=== PATIENT | female | born 1935 | race Caucasian/White ===

== ENCOUNTER → 2016-08-24 | Outpatient (CLI) | payer BC ==
[~2016-08-24] MED LIST: ATEN50TA8 PO; CALC600T37 PO; FESO8TAB PO; GLUCTAB7 PO; IBUP1CAP9 PO; MULT-506 PO; PANT1TAB48 PO; PITA4TAB PO; PREG100C PO; RANI300T2 PO; SPIR25TA89 PO
[2016-08-24 14:01] LABS: ALT/SGPT 20 U/L (12-78); AST/SGOT 20 U/L (15-37); BLOOD UREA NITROGEN 15 mg/dl (7-18); BUN/CREATININE RATIO 17.8 (10-20); CARBON DIOXIDE 27 mmol/L (21-32); CHLORIDE 109 mmol/L (98-107); CHOLESTEROL 175 mg/dl (0-200); CREATININE 0.83 mg/dl (0.60-1.20); GLUCOSE 97 mg/dl (70-99); SODIUM 143 mmol/L (136-145); TRIGLYCERIDES 203 mg/dl (0-150); VERY LOW DENSITY LIPOPROT CALC 41 mg/dl
[2016-08-24 14:12] LABS: ALB/GLOB RATIO 1.1 (0.9-2); ALKALINE PHOSPHATASE 138 U/L (45-117); CHOLESTEROL/HDL RATIO 3.7; HDL CHOLESTEROL 47 mg/dl; LDL CHOLESTEROL CALCULATED 87 mg/dl
[2016-08-24 14:38] LABS: HEMATOCRIT 39.5 % (37-47); MEAN CELL VOLUME 92.7 fL (80-100); MEAN CORPUSCULAR HGB CONC 33.4 g/dl (32-36); MEAN PLATELET VOLUME 13.4 fL (7.4-10.4); PLATELET COUNT 129 K/uL (130-400); RED BLOOD COUNT 4.26 M/uL (4.2-5.4); WHITE BLOOD COUNT 5.32 K/uL (4.8-10.8)
[2016-08-24 14:42] LABS: COMPLETE YES; GIANT PLATELETS 1+; LARGE GRANULAR LYMPH ABSOLUTE 1.67 K/uL; LARGE GRANULAR LYMPHOCYTE % 31.3 %; LARGE PLATELETS 2+; LYMPH ABS # 1.06 K/uL (1.2-3.4); NEUTROPHILS % 45.2 %; PLT ESTIMATE DECREASED
--- NOTE | 2016-08-30 12:30 | CODING QUERY MEDICAL NECESSITY ---
SUPPORTING DIAGNOSIS NEEDED A supporting diagnosis is required for the test/procedure performed on this patient in order for us to be reimbursed by the patient's insurance. Please provide a supporting diagnosis for the following test/procedure listed below next to the test name along with your signature. *If there is no additional diagnosis for this patient that would support the following test/procedure please document that below next to the test/procedure. Test(s)/Procedure(s) that require a supporting diagnosis: * VITAMIN D 25-HYDROXY DIAGNOSIS: * DOS: 08/24/16 Provider Signature: Date: Thank you Sandy Hoffman Health Information Management Once completed, please kindly fax back to [phone] For questions please call [phone]
== END | disposition home or self-care (01) ==
LOC: C.LABBC 09:30
PROVIDERS: ATTEND Internal Medicine Geriatric Medicine
DX: I10 Essential (primary) hypertension (principal); I87.2 Venous insufficiency (chronic) (peripheral); M19.90 Unspecified osteoarthritis, unspecified site; E78.5 Hyperlipidemia, unspecified; K22.2 Esophageal obstruction; I82.409 Acute embolism and thrombosis of unspecified deep veins of unspecified lower extremity; R91.8 Other nonspecific abnormal finding of lung field; E55.9 Vitamin D deficiency, unspecified

== ENCOUNTER → 2016-08-25 | Outpatient (CLI) | payer BC ==
[~2016-08-25] MED LIST changes: +ASPCH81X PO; +BUTACAP36; +CELE100C PO; +DEXL30CA5; +FRS/40 PO; +HYDR-4383 PO; +LOSA1TAB PO; +MIRA100T PO
--- NOTE | 2016-08-25 13:11 | MAMMOGRAPHY REPORT ---
BILATERAL DIGITAL SCREENING MAMMOGRAM WITH CAD: 08/25/2016 CLINICAL HISTORY: Routine screening. Patient has no complaints. TECHNIQUE: Current study was also evaluated with a Computer Aided Detection (CAD) system. Bilatera l CC and XCCL and MLO views were obtained. COMPARISON: Comparison is made to exams dated: 08/23/2015 mammogram, 08/19/2014 mammogram, 08/18/2013 mammogram, 08/15/2012 mammogram, 08/14/2011 mammogram, and 08/11/2010 mammogram - [facility]. BREAST COMPOSITION: The tissue of both breasts is almost entirely fatty. FINDINGS: No suspicious masses, calcifications, or areas of architectural distortion are noted in e ither breast. There has been no significant interval change compared to prior exams. Scattered bilat eral benign-appearing calcifications are not significantly changed. IMPRESSION: ACR BI-RADS CATEGORY 2: BENIGN There is no mammographic evidence of malignancy. A 1 year screening mammogram is recommended. The p atient will receive written notification of the results. Approximately 10% of breast cancers are not detected with mammography. A negative mammographic repor t should not delay biopsy if a clinically suggestive mass is present. Tracey Gallo M.D. /:08/25/2016 12:21:18 Professional Healthcare Representative: Martin LEE(R)(M), [facility] letter sent: Normal 1/2 BI-RADS Code: ACR BI-RADS Category 2: Benign
== END | disposition home or self-care (01) ==
LOC: C.MAMM 08:56
PROVIDERS: ATTEND Internal Medicine Geriatric Medicine
DX: Z12.31 Encounter for screening mammogram for malignant neoplasm of breast (principal)

== ENCOUNTER → 2016-08-30 | Outpatient (CLI) | payer BC ==
--- NOTE | 2016-08-30 11:33 | DIAGNOSTIC IMAGING REPORT ---
ULTRASOUND VENOUS DOPPLER LWR EXT BILA CLINICAL HISTORY: R60.9 MnveaS50.8 Pulmonary [id number] COMPARISON STUDY: 05/08/2016 FINDINGS: Real-time and color flow Doppler imaging were performed. Flow was seen within the femoral, popliteal and calf veins with no intraluminal thrombus demonstrated. The saphenous vein is patent. There are bilateral popliteal cysts. The cyst the right measures 47 x 7 x 27 mm. The cyst in the left measures 73 x 21 x 53 mm. IMPRESSION: No evidence of lower extremity DVT. Electronically signed by: Jesus Salinas M.D. 08/30/2016 11:31 AM Dictated Date/Time: 08/30/2016 11:31 AM
== END | disposition home or self-care (01) ==
LOC: C.ULTR 10:48
PROVIDERS: ATTEND Internal Medicine Geriatric Medicine
DX: R60.9 Edema, unspecified (principal); R91.8 Other nonspecific abnormal finding of lung field

== ENCOUNTER → 2017-02-16 | Outpatient (CLI) | payer BC ==
[~2017-02-16] MED LIST changes: -CELE100C PO
[2017-02-16 13:27] LABS: BASO % 0.2 %; BASO ABS # 0.01 K/uL (0-0.2); COMPLETE YES; EOS % 0.6 %; HEMATOCRIT 39.3 % (37-47); IG% 0.3 %; LYMPH % 46.3 %; MEAN CELL VOLUME 95.4 fL (80-100); MEAN CORPUSCULAR HEMOGLOBIN 30.8 pg (25-34); MEAN CORPUSCULAR HGB CONC 32.3 g/dl (32-36); MONO % 9.3 %; NEUT % 43.3 %; PLATELET COUNT 132 K/uL (130-400); RED BLOOD COUNT 4.12 M/uL (4.2-5.4); WHITE BLOOD COUNT 6.26 K/uL (4.8-10.8)
[2017-02-16 13:57] LABS: ALT/SGPT 19 U/L (12-78); AST/SGOT 19 U/L (15-37); BLOOD UREA NITROGEN 16 mg/dl (7-18); BUN/CREATININE RATIO 19.4 (10-20); CALCIUM 10.1 mg/dl (8.5-10.1); CARBON DIOXIDE 27 mmol/L (21-32); CHLORIDE 108 mmol/L (98-107); CREATININE 0.84 mg/dl (0.60-1.20); GLUCOSE 93 mg/dl (70-99); POTASSIUM 4.5 mmol/L (3.5-5.1); SODIUM 141 mmol/L (136-145)
[2017-02-16 14:00] LABS: ALKALINE PHOSPHATASE 116 U/L (45-117)
== END | disposition home or self-care (01) ==
LOC: C.LABBC 11:22
PROVIDERS: ATTEND Internal Medicine Geriatric Medicine
DX: I10 Essential (primary) hypertension (principal); E78.5 Hyperlipidemia, unspecified; D69.6 Thrombocytopenia, unspecified

== ENCOUNTER → 2017-02-22 | Outpatient (CLI) | payer BC ==
--- NOTE | 2017-02-22 09:47 | DIAGNOSTIC IMAGING REPORT ---
ULTRASOUND VENOUS DOPPLER LWR EXT BILKarolyn CLINICAL HISTORY: R60.9 Edema COMPARISON STUDY: 08/30/2016 FINDINGS: Real-time and color flow Doppler imaging were performed. Flow was seen within the femoral, popliteal and calf veins with no intraluminal thrombus demonstrated. The saphenous vein is patent. There is a left popliteal cyst measuring 7.5 x 4.7 x 2.3 cm. IMPRESSION: No evidence of lower extremity DVT. Electronically signed by: Jesus Salinas M.D. 02/22/2017 9:46 AM Dictated Date/Time: 02/22/2017 9:43 AM
== END | disposition home or self-care (01) ==
LOC: C.ULTRBC 08:49
PROVIDERS: ATTEND Internal Medicine Geriatric Medicine
DX: R60.9 Edema, unspecified (principal)

== ENCOUNTER → 2017-02-27 | Outpatient (CLI) | payer BC ==
[~2017-02-27] MED LIST changes: -ASPCH81X PO; -BUTACAP36; -DEXL30CA5; -FRS/40 PO; -HYDR-4383 PO; -LOSA1TAB PO; -MIRA100T PO
--- NOTE | 2017-02-27 10:03 | DIAGNOSTIC IMAGING REPORT ---
(CHEST) THORAX WITHOUT CT DOSE: 561.91 mGy.cm CLINICAL HISTORY: 81 years-old Female with R91.8 Pulmonary [id number]. Follow-up study to assess pulmonary nodules. TECHNIQUE: Multiaxial CT images of the chest were performed without contrast. A dose lowering technique was utilized adhering to the principles of ALARA. COMPARISON: Chest CT 02/28/2016 and 09/22/2015 FINDINGS: The thyroid appears homogeneous without focal nodule identified. No pathologic adenopathy about the chest identified. The heart is mildly enlarged with coronary arterial and aortic annular calcifications. There is fusiform dilation involving the a sending thoracic aorta which begins distal to the sinotubular junction measuring approximately 4.5 x 4.5 cm in AP and transverse dimension. Evaluation is mildly limited secondary to cardiac and respiratory motion. This appears unchanged from comparison. There is no pneumothorax, pleural effusion or focal airspace consolidation. There is mild dependent bibasilar atelectasis, left greater than right. Multiple solid noncalcified pulmonary nodules are again seen within the lungs bilaterally. The largest nodules are seen measuring up to 6 mm, notably within the anterior segment left upper lobe seen on image 66 of series 4. 5 mm noncalcified pulmonary nodule seen within the superior segment of the right lower lobe on image 102 of series 4. No significant change dating back to 09/22/2015. The central airways are patent. Prior cholecystectomy. There is moderate diffuse pancreatic atrophy. No acute abnormality of the upper abdomen. The bones are mildly demineralized. Severe intervertebral disc space narrowing noted at T9-T10. There is convex right curvature of the lower thoracic spine. IMPRESSION: 1. No acute intrathoracic abnormality identified. 2. Redemonstration of multiple noncalcified solid pulmonary nodules in a multilobar distribution bilaterally. These appear stable dating back to 09/22/2015 and are of low clinical suspicion. Fleischner guidelines are provided below. 3. Stable appearing fusiform dilation of the ascending thoracic aorta redemonstrated beginning distal to the sinotubular junction, 4.5 x 4.5 cm. 4. Mild cardiomegaly. Please refer to below summary of Fleischner criteria recommendations for follow-up of incidental CT nodules (Mane Azevedo, Guidelines for management of small pulmonary nodules detected on CT scans: A statement from the Fleischner Society, Radiology 237: [phone].) SOLID NODULES Multiple nodules size: <6 mm * Low risk patients: no routine follow-up * high risk patients: optional CT at 12 months Multiple nodules size: 6-8 mm * Low risk patients: follow-up at 3-6 months, then consider further follow-up at 18-24 months * high risk patients: follow-up at 3-6 months, then at 18-24 months if no change Note: newly detected indeterminate nodule in persons 35 years of age or older. * Low risk patients: minimal or absent history of smoking and/or other known risk factors * high risk patients: history of smoking or of other known risk factors (e.g. first degree relative with lung cancer, or exposure to asbestos, radon, uranium) * if a nodule up to 8 mm is partly solid or is ground glass further follow-up is required after 24 months to exclude possible slow growing adenocarcinoma (BALWINDER) The above report was generated using voice recognition software. It may contain grammatical, syntax or spelling errors. Electronically signed by: Bharath Arrieta M.D. 02/27/2017 10:01 AM Dictated Date/Time: 02/27/2017 9:49 AM
== END | disposition home or self-care (01) ==
LOC: C.CTS 09:37
PROVIDERS: ATTEND Internal Medicine Geriatric Medicine
DX: R91.8 Other nonspecific abnormal finding of lung field (principal); I77.810 Thoracic aortic ectasia; I51.7 Cardiomegaly

== ENCOUNTER → 2017-03-12 | Outpatient (CLI) | payer BC ==
[~2017-03-12] MED LIST changes: +ASPCH81X PO; +BUTACAP36; +DEXL30CA5; +FRS/40 PO; +HYDR-4383 PO; +LOSA1TAB PO; +MIRA100T PO
--- NOTE | 2017-03-12 10:16 | DIAGNOSTIC IMAGING REPORT ---
L-SPINE MIN 4 VIEWS ROUTINE CLINICAL HISTORY: Low back pain COMPARISON STUDY: No previous studies for comparison. FINDINGS: There is a lumbar scoliosis. There are postsurgical changes present the L5-S1 level. There are no acute fractures. There are multilevel degenerative changes. A minor superior endplate L3 compression deformities felt to be old. The bones are osteopenic. IMPRESSION: Postsurgical changes of an L5-S1 discectomy and spinal fusion. Scoliosis. No acute fractures. Electronically signed by: Jesus Salinas M.D. 03/12/2017 10:15 AM Dictated Date/Time: 03/12/2017 10:14 AM
== END | disposition home or self-care (01) ==
LOC: C.RADBC 09:19
PROVIDERS: ATTEND Physician Assistant Medical
DX: M54.5 Low back pain (principal); Z98.1 Arthrodesis status; M41.9 Scoliosis, unspecified

== ENCOUNTER → 2017-08-21 | Outpatient (CLI) | payer BC ==
[~2017-08-21] MED LIST changes: +CALC500C70 PO; +CHOL1000 PO; -DEXL30CA5; +DEXL30CA5 PO; -FESO8TAB PO; -PANT1TAB48 PO; +PITA1TAB19 PO; -PITA4TAB PO; -RANI300T2 PO
[2017-08-21 17:00] LABS: BASO % 0.3 %; BASO ABS # 0.02 K/uL (0-0.2); EOS % 0.9 %; EOS ABS # 0.06 K/uL (0-0.5); HEMATOCRIT 41.9 % (37-47); HEMOGLOBIN 13.9 g/dL (12.0-16.0); IG# 0.02 K/uL (0.00-0.02); LYMPH % 41.4 %; LYMPH ABS # 2.82 K/uL (1.2-3.4); MEAN CELL VOLUME 96.5 fL (80-100); MEAN CORPUSCULAR HGB CONC 33.2 g/dl (32-36); MEAN PLATELET VOLUME 13.2 fL (7.4-10.4); MONO % 7.9 %; MONO ABS # 0.54 K/uL (0.11-0.59); NEUT % 49.2 %; NEUT ABS # 3.35 K/uL (1.4-6.5); PLATELET COUNT 153 K/uL (130-400); RED CELL DISTRIBUTION WIDTH CV 12.7 % (11.5-14.5); RED CELL DISTRIBUTION WIDTH SD 44.4 fL (36.4-46.3); WHITE BLOOD COUNT 6.81 K/uL (4.8-10.8)
[2017-08-21 17:07] LABS: BLOOD UREA NITROGEN 14 mg/dl (7-18); CALCIUM 10.2 mg/dl (8.5-10.1); CARBON DIOXIDE 29 mmol/L (21-32); CHOLESTEROL 171 mg/dl (0-200); CREATININE 1.03 mg/dl (0.60-1.20); GLUCOSE 101 mg/dl (70-99); POTASSIUM 3.7 mmol/L (3.5-5.1); SODIUM 141 mmol/L (136-145)
[2017-08-21 17:18] LABS: LDL CHOLESTEROL CALCULATED 79 mg/dl
== END | disposition home or self-care (01) ==
LOC: C.LABBC 13:46
PROVIDERS: ATTEND Internal Medicine Geriatric Medicine
DX: I10 Essential (primary) hypertension (principal); E78.5 Hyperlipidemia, unspecified; D69.6 Thrombocytopenia, unspecified

== ENCOUNTER → 2017-08-28 | Outpatient (CLI) | payer BC ==
--- NOTE | 2017-08-29 07:55 | MAMMOGRAPHY REPORT ---
BILATERAL DIGITAL SCREENING MAMMOGRAM TOMOSYNTHESIS WITH CAD: 08/28/2017 CLINICAL HISTORY: Routine screening. Patient has no complaints. TECHNIQUE: Breast tomosynthesis in addition to standard 2D mammography was performed. Current study was also evaluated with a Computer Aided Detection (CAD) system. COMPARISON: Comparison is made to exams dated: 08/25/2016 mammogram, 08/23/2015 mammogram, 08/19/2014 m ammogram, 08/18/2013 mammogram, 08/15/2012 mammogram, and 08/14/2011 mammogram - [facility]. BREAST COMPOSITION: The tissue of both breasts is almost entirely fatty. FINDINGS: Status post bilateral reduction mammoplasty. There are scattered benign calcifications thr oughout the left greater than right breast. No suspicious mass, architectural distortion or cluster of microcalcifications is seen. IMPRESSION: ACR BI-RADS CATEGORY 1: NEGATIVE There is no mammographic evidence of malignancy. A 1 year screening mammogram is recommended. The pa tient will receive written notification of the results. Approximately 10% of breast cancers are not detected with mammography. A negative mammographic report should not delay biopsy if a clinically suggestive mass is present. Talisha Bell M.D. ay/:08/28/2017 16:30:37 Store Associate: Lakisha Pina, [facility] letter sent: Normal 1/2 BI-RADS Code: ACR BI-RADS Category 1: Negative
== END | disposition home or self-care (01) ==
LOC: C.MAMM 09:34
PROVIDERS: ATTEND Internal Medicine Geriatric Medicine
DX: Z12.31 Encounter for screening mammogram for malignant neoplasm of breast (principal)

== ENCOUNTER 2020-05-03 08:54 | Observation (INO) ==
[2020-05-03] MEDS ORDERED: SODIUM CHLORIDE 0.9% 500 ML IV SCH (09:15)
--- NOTE | 2020-05-03 09:30 | Electrocardiogram Report ---
Test Reason : Blood Pressure : / mmHG Vent. Rate : 092 BPM Atrial Rate : 416 BPM P-R Int : 000 ms QRS Dur : 084 ms QT Int : 394 ms P-R-T Axes : 000 -04 -63 degrees QTc Int : 487 ms Atrial fibrillation Moderate voltage criteria for LVH, may be normal variant Nonspecific ST and T wave abnormality Prolonged QT Abnormal ECG When compared with ECG of 02-MAY-2020 08:35, Nonspecific T wave abnormality, worse in Lateral leads Confirmed by Rajendra Gibbs ([id number]) on 05/03/2020 9:29:25 AM Referred By: Confirmed By:Rajendra Gibbs
--- NOTE | 2020-05-03 09:43 | XRay Report ---
XR chest 1V portable HISTORY: 84 years-old Female weakness acute weakness COMPARISON: Chest radiograph 01/13/2020 TECHNIQUE: Portable AP view of the chest FINDINGS: Cardiac silhouette is enlarged, unchanged. Calcified plaque of the thoracic aorta. There is no pneumo thorax, pleural effusion, airspace consolidation or overt pulmonary edema. Degenerative changes of th e shoulders and spine. Hiatal hernia. Cholecystectomy. IMPRESSION: 1. Cardiomegaly without acute process. 2. Hiatal hernia. ACT 112: Negative or not required by law. The above report was generated using voice recognition software. It may contain grammatical, syntax o r spelling errors. Electronically signed by: Bharath Arrieta M.D. 05/03/2020 9:41 AM
[2020-05-03 09:47] LABS: Basophils # (auto) 0.01 K/uL (0-0.2); Basophils % (auto) 0.1 %; Hematocrit (blood only) 41.4 % (37-47); Hemoglobin 13.8 g/dL (12.0-16.0); Immature Granulocytes # (auto) 0.03 K/uL (0.00-0.02); Immature Granulocytes % (auto) 0.3 %; Lymphocytes # (auto) 1.15 K/uL (1.2-3.4); Mean Corpuscular Hemoglobin 32.6 pg (25-34); Mean Corpuscular Hgb Conc 33.3 g/dL (32-36); Mean Corpuscular Volume 97.9 fL (80-100); Mean Platelet Volume 12.8 fL (7.4-10.4); Monocytes # (auto) 0.91 K/uL (0.11-0.59); Monocytes % (auto) 8.7 %; Neutrophils # (auto) 8.36 K/uL (1.4-6.5); Neutrophils % (auto) 79.9 %; Platelet Count 153 K/uL (130-400); RDW Coefficient of Variation 13.1 % (11.5-14.5); RDW Standard Deviation 46.9 fL (36.4-46.3); Red Blood Count 4.23 M/uL (4.2-5.4); White Blood Count 10.46 K/uL (4.8-10.8)
[2020-05-03 10:08] LABS: Alanine Aminotransferase 29 U/L (12-78); Albumin Level 3.7 gm/dl (3.4-5.0); Aspartate Aminotransferase 35 U/L (15-37); BUN Creatinine Ratio 14.3 (10-20); Blood Urea Nitrogen 15 mg/dl (7-18); Calcium 10.5 mg/dl (8.5-10.1); Carbon Dioxide 24 mmol/L (21-32); Chloride 109 mmol/L (98-107); Creatinine Clr Calc Pharmacy 43.1 ml/min; Est GFR (African American) 58.5; Est GFR (Non-African American) 50.5; Glucose 137 mg/dl (70-99); Potassium 4.1 mmol/L (3.5-5.1); Sodium 143 mmol/L (136-145)
[2020-05-03 10:33] LABS: Albumin Globulin Ratio 0.9 (0.9-2); Alkaline Phosphatase 97 U/L (45-117); Creatine Kinase 75 U/L (26-192); Total Protein 7.7 gm/dl (6.4-8.2); Troponin I < 0.015 ng/ml (0-0.045)
--- NOTE | 2020-05-03 10:59 | CT Scan Report ---
CT head/brain wo con CLINICAL HISTORY: 84 years-old Female with fall, weakness. Acute head injury status post fall TECHNIQUE: Multiple axial CT images of the head were obtained without contrast. A dose lowering tech nique was utilized adhering to the principles of ALARA. CT DOSE: 614.27 mGy.cm COMPARISON: Brain MRI 11/25/2019. FINDINGS: No acute intracranial hemorrhage, midline shift, intracranial mass, hydrocephalus, territorial ischem ia or abnormal extra-axial collection. Age-related involutional changes with ex vacuo ventriculomegal y. Patchy white matter hypodensities suggest chronic microvascular ischemic disease. Cerebral vascula r calcifications. The calvarium is intact. Prior bilateral lens repair. The paranasal sinuses, mastoid air cells, and m iddle ear cavities are clear. IMPRESSION: No acute intracranial abnormality or calvarial fracture. ACT 112: Negative or not required by law. The above report was generated using voice recognition software. It may contain grammatical, syntax o r spelling errors. Electronically signed by: Bharath Arrieta M.D. 05/03/2020 10:58 AM
[2020-05-03] MEDS ORDERED: cefTRIAXone SODIUM 2,000 MG/70 ML BAG IV STA (11:21)
--- NOTE | 2020-05-03 12:02 | History & Physical Report ---
Date of Service May 03, 2020 Assessment & Plan (1) Constipation: Suspect this is the main cause of her nausea and vomiting which lead to her admission. MiraLAX 17g TID (2) Nausea: Suspect secondary to constipation as above +/- pain medication. No definitive urine tract infection on prior UA. Will defer further antibiotics pending further UA + culture. Continue dexlansoprazole 60 mg p.o. every morning (3) Generalized weakness: PT/OT (4) Renal infarct: Noted on prior CT on 05/02. No significant CVA tenderness on left compared to right side. (5) Atrial fibrillation: Chronic Continue anticoagulation with apixaban 5mg PO BID Continue rate control with metoprolol succinate 200mg PO daily (6) Hypertension: Continue her usual medication with losartan, metoprolol and spironolactone. (7) Right shoulder pain: Right shoulder XR (8) PAD (peripheral artery disease): Continue apixaban 5 mg p.o. twice daily Continue pitavastatin 4 mg p.o. daily (9) Gastroesophageal reflux disease: Continue dexlansoprazole delayed release 60 mg p.o. daily (10) Chronic kidney disease: At baseline. Monitor with BMP in a.m. Admission and Anticipated Discharge Date Admission Date: 05/03/2020 History of Present Illness Chief Complaint: Fell out of bed Primary Care Provider: Esa Muller DO Shreya Hendrix is an 84 year old female who presents to the ER with Fall out of bed. Occurred at approximately 5 AM today and she spent 2 hours in the floor. She lives with her however they were not in the same room. When her found her he called for EMS. She reports feeling generalized weakness recently, associated constipation, nausea and vomiting. She was seen recently in the ER yesterday after taking Dulcolax suppositories prescribed by her PCP did not work for her constipation and nausea. She was diagnosed with a UTI at that time and started on Keflex. UA showed a high specific gravity, 1+ ketones, 2+ blood, 5-10 WBC, 10-30 RBC and 20-30 epithelial cells however no culture was sent as no leukocyte esterase or nitrites in urine. Repeat UA has not yet been collected in the ER however she was given a dose of ceftriaxone to cover for UTI. She does report her nausea has been slightly improving since starting antibiotics. ROS: Nausea and vomiting since SundayApr 21. Chills last night. No objective fever. No BM for 1 week. No abdominal pain outside of nausea episodes. Similar symptoms to when she has had UTIs in the past. No melena or bright red blood in stool. Allergies Allergy/AdvReac Type Severity Reaction Status Date / Time atorvastatin AdvReac Intermediate liver Verified 05/03/20 09:52 enzymes elevate lisinopril AdvReac Verified 05/03/20 09:52 Home Medications Medication Instructions Recorded Confirmed Type cholecalciferol (vitamin D3) 25 1,000 units PO QAM cap 02/20/19 05/03/20 History mcg (1,000 unit) capsule multivitamin 1 tab PO DAILY 02/20/19 05/03/20 History furosemide 40 mg tablet 40 mg PO BID PRN #60 tab 04/21/19 05/03/20 Rx cwummtngin-uuguamlxpyuei-hicgmaqr 1 tab PO BID PRN #30 tab 11/26/19 05/03/20 Rx 50 mg-325 mg-40 mg tablet dexlansoprazole 60 mg 60 mg PO QAM cap 01/13/20 05/03/20 History capsule,biphase delayed release losartan 25 mg PO QAM 01/13/20 05/03/20 History mirabegron 25 mg tablet,extended 25 mg PO DAILY tab 01/13/20 05/03/20 History release 24 hr ondansetron 4 mg PO Q6 PRN #14 tab 01/13/20 05/03/20 Rx zoledronic acid 5 mg/100 mL in 5 mg IV ONCE ml 01/13/20 05/03/20 History mannitol 5 %-water intravenous piggybck apixaban 5 mg tablet 5 mg PO BID #60 tab 01/26/20 05/03/20 Rx pitavastatin calcium 4 mg tablet 4 mg PO DAILY #90 tab 02/03/20 05/03/20 Rx spironolactone 25 mg tablet 25 mg PO DAILY #90 tab 02/03/20 05/03/20 Rx metoprolol succinate 200 mg 200 mg PO DAILY #90 tab 02/24/20 05/03/20 Rx tablet,extended release 24 hr hydrocodone 5 mg-acetaminophen 325 1 tab PO DAILY PRN #30 tab 03/02/20 05/03/20 Rx mg tablet bisacodyl 10 mg rectal suppository 10 mg KS DAILY PRN #12 ea 04/29/20 05/03/20 Rx cephalexin [Keflex] 500 mg PO BID 7 Days #14 cap 05/02/20 05/03/20 Rx pregabalin 100 mg PO TID 05/02/20 05/03/20 History polyethylene glycol 3350 [Miralax] 17 g PO TID PRN #30 ea 05/04/20 Rx Past Med/Surg History Medical History Aortic regurgitation Arthritis of both feet Atrial fibrillation Chronic headache disorder Degenerative arthritis of knee, bilateral High cholesterol History of deep venous thrombosis Hypertension Neuropathy Osteoarthritis Osteoporosis PAD (peripheral artery disease) Popliteal cyst Thoracic ascending aortic aneurysm Venous insufficiency Surgical History History of back surgery History of cholecystectomy History of hysterectomy History of tubal ligation Family History Mother Breast cancer Hypertension Coronary heart disease Father Coronary heart disease Myocardial infarction Sister Breast cancer Colorectal cancer Social History Smoking Status: Never smoker Second Hand Exposure: No; Do You Dip or Chew Tobacco: No; Tobacco Cessation Education Requested by Patient: No Hx Alcohol Use: No Hx Substance Use: No Preferred Language: Bulgarian Communication Ability: Effective Hearing Ability: Normal Front Desk Assistant Required: No Beliefs That Will Affect Care: None marital status: Current Living Situation: Spouse Current Living Situation Comment: verbalizes he is unable to take care of pt. current occupational status: retired current occupation: part-time Other Information That Helps Us Care for You: No Feels Safe at Home: Yes Safety Concerns: Feels Safe At This Time Seatbelt Use: always Sunscreen Use: Yes Assistive Devices: Walker Review of Systems Review of Systems: All systems reviewed & are unremarkable except as noted in HPI & below Physical Exam Constitutional: well developed and well nourished; no acute distress Eyes: PERRL, conjunctivae normal, anicteric sclerae ENMT: external ear and nose normal, oropharynx normal Neck: trachea midline, no thyromegaly Respiratory: normal respiratory effort, lungs clear to auscultation Cardiovascular: Rate/Rhythm: + irregularly irregular Heart Sounds: no murmur Vessels: no JVD Extremities: normal capillary refill and + pedal edema (1+ on left, no edema on right); no calf tenderness Gastrointestinal (Abdomen): normal bowel sounds, soft, nontender, no hepatosplenomegaly Musculoskeletal: no cyanosis or clubbing, extremities motor strength 5/5 Skin: no rashes, warm and dry Neurologic: moves all extremities and awake; no focal motor deficits and not confused Speech / Cognition: normal speech Motor/Sensory: no tremor and no pronator drift Psychiatric: A+Ox3, euthymic affect Genitourinary: + CVA tenderness (bilateral) Results & Data Results & Data ([facility]) Vital Signs (Past 12 Hours) Vital Signs Temp Pulse Resp BP Pulse Ox 05/03/20 11:00 84 14 136/76 98 05/03/20 10:30 91 H 20 137/95 100 05/03/20 10:00 102 H 22 125/81 95 05/03/20 09:31 95 05/03/20 09:16 102 H 24 148/106 H 96 05/03/20 08:59 36.6 C 106 H 20 165/[address] head/brain wo con IMPRESSION: No acute intracranial abnormality or calvarial fracture. XR chest 1V portable IMPRESSION: 1. Cardiomegaly without acute process. 2. Hiatal hernia. Medications Administered ER medications given: NSS 500 mL bolus Ceftriaxone 2 g IV ECG Indication: vomiting and other (Generalized weakness) Rate (beats per minute): 92 Rhythm: atrial flutter Findings: + other (Nonspecific T wave abnormality in lateral leads) Comparison ECG Date: from (May 02, 2020) Change: no significant change Code Status & VTE Plan Code Status DNR, all treatment outside of a cardiac arrest VTE Prophylaxis Plan VTE Prophylaxis will be ordered: Yes PG Care Time/CCT Total # of Minutes Spent Total Time Spent with Patient: Total time spent is greater than 50% in coordination of care (as documented) at patient's floor/unit and/or counseling patient: Coding Level of Care Code 38631 OBS Care - Level 2 Diagnoses Constipation K59.00 Constipation type: unspecified constipation type Nausea R11.0 Generalized weakness R53.1 Renal infarct N28.0 Atrial fibrillation I48.20 Atrial fibrillation type: unspecified chronic Hypertension I10 Hypertension type: essential hypertension Right shoulder pain M25.511 PAD (peripheral artery disease) I73.9 Gastroesophageal reflux disease K21.9 Chronic kidney disease N18.9 (1) Atrial fibrillation Atrial fibrillation type: unspecified chronic Qualified Code(s): I48.20 - Chronic atrial fibrillation, unspecified (2) Hypertension Hypertension type: essential hypertension Qualified Code(s): I10 - Essential (primary) hypertension (3) Constipation Constipation type: unspecified constipation type Qualified Code(s): K59.00 - Constipation, unspecified
[2020-05-03] MEDS ORDERED: APIXABAN 5 MG TABLET PO STA (12:22)
[2020-05-03] MEDS ORDERED: METOPROLOL SUCC 50MG EXT REL TAB PO STA (12:23)
[2020-05-03] MEDS ORDERED: SPIRONOLACTONE 25 MG TAB PO STA (12:24)
--- NOTE | 2020-05-03 13:32 | XRay Report ---
XR shoulder RT min 2V routine CLINICAL HISTORY: right shoulder pain COMPARISON: None. DISCUSSION: No acute fractures or dislocations are visualized. There are advanced osteoarthritic dhillon ges. Degenerative changes are present within the AC joint. IMPRESSION: 1. Advanced osteoarthritic change 2. No acute fractures or dislocations ACT 112: Negative or not required by law. Electronically signed by: Jesus Salinas M.D. 05/03/2020 1:31 PM
--- NOTE | 2020-05-03 15:49 | Ultrasound Report ---
LEFT LOWER EXTREMITY VENOUS DOPPLER CLINICAL HISTORY: Left lower extremity swelling. COMPARISON STUDY: Left lower extremity venous Doppler ultrasound December 14, 2017. TECHNIQUE: Sonography of the deep venous system of the left lower extremity was performed. Compressi on and augmentation were evaluated. FINDINGS: The left common femoral, superficial femoral and popliteal veins were compressible. Augmen tation was normal. Flow was shown within the deep calf vessels. Note is made of a 6.2 x 3.1 x 1.1 cm left popliteal cyst which has slightly decreased in size since ultrasound of December 14, 2017. IMPRESSION: 1. No evidence of deep venous thrombus within the left lower extremity. 2. 6.2 x 3.1 x 1.1 cm left popliteal cyst. ACT 112: Negative or not required by law. Electronically signed by: Nathan Camarena M.D. 05/03/2020 3:47 PM
--- NOTE | 2020-05-03 16:06 | Emergency Department Note ---
History of Present Illness General Chief complaint: Fall Source: patient, RN notes reviewed and old records reviewed Mode of arrival: ambulatory Limitations: no limitations History of Present Illness Provider complaint: Fall Onset (ago): hour(s) 2 Current Pain Intensity: 0 Associated symptoms: + confusion and + weakness; no fever/chills, no headaches, no nausea/vomiting and no shortness of breath Treatments prior to arrival: none This is an 84-year-old female who presents emergency department complaining of generalized weakness. The patient and her report that the patient received an antibiotic yesterday for urinary tract infection and was sent home. Since arriving at home the patient has been too weak to get out of bed. The reports the patient rolled out of bed this morning. The patient herself is denying any injuries however reports she is unable to walk due to her weakness. Home Medications Medication Instructions Recorded Confirmed Type cholecalciferol (vitamin D3) 25 1,000 units PO QAM cap 02/20/19 05/03/20 History mcg (1,000 unit) capsule multivitamin 1 tab PO DAILY 02/20/19 05/03/20 History furosemide 40 mg tablet 40 mg PO BID PRN #60 tab 04/21/19 05/03/20 Rx pwmvibkceu-pwtgaplksfoqi-grmvncpj 1 tab PO BID PRN #30 tab 11/26/19 05/03/20 Rx 50 mg-325 mg-40 mg tablet dexlansoprazole 60 mg 60 mg PO QAM cap 01/13/20 05/03/20 History capsule,biphase delayed release losartan 25 mg PO QAM 01/13/20 05/03/20 History mirabegron 25 mg tablet,extended 25 mg PO DAILY tab 01/13/20 05/03/20 History release 24 hr ondansetron 4 mg PO Q6 PRN #14 tab 01/13/20 05/03/20 Rx zoledronic acid 5 mg/100 mL in 5 mg IV ONCE ml 01/13/20 05/03/20 History mannitol 5 %-water intravenous piggybck apixaban 5 mg tablet 5 mg PO BID #60 tab 01/26/20 05/03/20 Rx pitavastatin calcium 4 mg tablet 4 mg PO DAILY #90 tab 02/03/20 05/03/20 Rx spironolactone 25 mg tablet 25 mg PO DAILY #90 tab 02/03/20 05/03/20 Rx metoprolol succinate 200 mg 200 mg PO DAILY #90 tab 02/24/20 05/03/20 Rx tablet,extended release 24 hr hydrocodone 5 mg-acetaminophen 325 1 tab PO DAILY PRN #30 tab 03/02/20 05/03/20 Rx mg tablet bisacodyl 10 mg rectal suppository 10 mg ME DAILY PRN #12 ea 04/29/20 05/03/20 Rx cephalexin [Keflex] 500 mg PO BID 7 Days #14 cap 05/02/20 05/03/20 Rx pregabalin 100 mg PO TID 05/02/20 05/03/20 History polyethylene glycol 3350 [Miralax] 17 g PO TID PRN #30 ea 05/04/20 Rx Allergies Allergy/AdvReac Type Severity Reaction Status Date / Time atorvastatin AdvReac Intermediate liver Verified 05/03/20 09:52 enzymes elevate lisinopril AdvReac Verified 05/03/20 09:52 Past Med/Surg History Medical History Aortic regurgitation Arthritis of both feet Atrial fibrillation Chronic headache disorder Degenerative arthritis of knee, bilateral High cholesterol History of deep venous thrombosis Hypertension Neuropathy Osteoarthritis Osteoporosis PAD (peripheral artery disease) Popliteal cyst Thoracic ascending aortic aneurysm Venous insufficiency Surgical History History of back surgery History of cholecystectomy History of hysterectomy History of tubal ligation Family History Mother Breast cancer Hypertension Coronary heart disease Father Coronary heart disease Myocardial infarction Sister Breast cancer Colorectal cancer Social History Smoking Status: Never smoker Second Hand Exposure: No; Hx Alcohol Use: No Hx Substance Use: No Preferred Language: Bulgarian Communication Ability: Effective Hearing Ability: Normal Picture Booker Required: No Beliefs That Will Affect Care: None marital status: Current Living Situation: Spouse Current Living Situation Comment: verbalizes he is unable to take care of pt. current occupational status: retired current occupation: part-time Feels Safe at Home: Yes Seatbelt Use: always Sunscreen Use: Yes Assistive Devices: Walker Review of Systems A total of 10 systems reviewed and were otherwise negative Physical Exam Vital Signs Vital Signs - 24 hr 05/03/20 08:59 05/03/20 09:16 05/03/20 09:31 Temperature 36.6 C Temperature Source Oral Pulse Rate 106 H 102 H Pulse Rate [Apical] Pulse Rate from SpO2 Sensor 99 H Respiratory Rate 20 24 Respiratory Effort / Characteristics Respiratory Depth Blood Pressure 165/99 H 148/106 H Blood Pressure [Left Arm] Blood Pressure Mean 121 127 Blood Pressure Mean [Left Arm] Pulse Oximetry 96 96 95 Oxygen Delivery Method Room Air Room Air Room Air Sepsis Recent Fever Within 48 Hours No Sepsis New/Unexplained Change in Mental Status N/A Sepsis Action Taken by Nursing No Action Required 05/03/20 10:00 05/03/20 10:30 05/03/20 11:00 Temperature Temperature Source Pulse Rate 102 H 91 H 84 Pulse Rate [Apical] Pulse Rate from SpO2 Sensor 100 H 92 H 85 Respiratory Rate 22 20 14 Respiratory Effort / Characteristics Respiratory Depth Blood Pressure 125/81 137/95 136/76 Blood Pressure [Left Arm] Blood Pressure Mean 99 109 112 Blood Pressure Mean [Left Arm] Pulse Oximetry 95 100 98 Oxygen Delivery Method Room Air Room Air Room Air Sepsis Recent Fever Within 48 Hours Sepsis New/Unexplained Change in Mental Status Sepsis Action Taken by Nursing 05/03/20 12:00 05/03/20 12:07 05/03/20 12:30 Temperature Temperature Source Pulse Rate 90 78 Pulse Rate [Apical] 92 H Pulse Rate from SpO2 Sensor 86 82 Respiratory Rate 23 20 22 Respiratory Effort / Characteristics Non-Labored Respiratory Depth Normal Blood Pressure 137/94 130/85 Blood Pressure [Left Arm] 137/94 Blood Pressure Mean 114 107 Blood Pressure Mean [Left Arm] 108 Pulse Oximetry 94 97 97 Oxygen Delivery Method Room Air Room Air Room Air Sepsis Recent Fever Within 48 Hours Sepsis New/Unexplained Change in Mental Status Sepsis Action Taken by Nursing 05/03/20 12:31 05/03/20 13:00 05/03/20 13:01 Temperature Temperature Source Pulse Rate 89 90 90 Pulse Rate [Apical] Pulse Rate from SpO2 Sensor 87 102 H 83 Respiratory Rate 26 H 26 H 19 Respiratory Effort / Characteristics Respiratory Depth Blood Pressure 139/84 Blood Pressure [Left Arm] Blood Pressure Mean 108 Blood Pressure Mean [Left Arm] Pulse Oximetry 96 98 100 Oxygen Delivery Method Sepsis Recent Fever Within 48 Hours Sepsis New/Unexplained Change in Mental Status Sepsis Action Taken by Nursing 05/03/20 13:30 05/03/20 13:31 05/03/20 14:00 Temperature Temperature Source Pulse Rate 93 H 77 76 Pulse Rate [Apical] Pulse Rate from SpO2 Sensor Respiratory Rate 26 H 21 25 H Respiratory Effort / Characteristics Respiratory Depth Blood Pressure 149/84 H 144/85 H Blood Pressure [Left Arm] Blood Pressure Mean 106 115 Blood Pressure Mean [Left Arm] Pulse Oximetry Oxygen Delivery Method Sepsis Recent Fever Within 48 Hours Sepsis New/Unexplained Change in Mental Status Sepsis Action Taken by Nursing 05/03/20 14:01 05/03/20 14:30 Temperature Temperature Source Pulse Rate 79 77 Pulse Rate [Apical] Pulse Rate from SpO2 Sensor Respiratory Rate 23 28 H Respiratory Effort / Characteristics Respiratory Depth Blood Pressure 139/80 Blood Pressure [Left Arm] Blood Pressure Mean 109 Blood Pressure Mean [Left Arm] Pulse Oximetry 95 Oxygen Delivery Method Sepsis Recent Fever Within 48 Hours Sepsis New/Unexplained Change in Mental Status Sepsis Action Taken by Nursing VITAL SIGNS - Vital signs and nursing notes were reviewed. GENERAL - 84-year-old female appearing stated age who is in no acute distress. Communicates well with provider and answers questions appropriately. SKIN - Without rashes. HEAD - NC/AT. EYES - PERRL with EOMI bilaterally. Sclera anicteric. Palpebral conjunctiva pink and moist with no injection noted. EARS - No deformities of external structures noted on gross examination bilaterally. No pain elicited with palpation of the tragus bilaterally. External auditory canals without discharge or otorrhea. Tympanic membranes pearly myers without retraction or bulging. No fluid or purulent material visualized behind the TM. Handle of malleus, umbo, cone of light, pars tensa/flaccid all easily visualized. NOSE - Midline and without cyanosis. No epistaxis or purulent drainage noted. Septum midline without deviation or septal hematoma noted. MOUTH/OROPHARYNX - Without perioral cyanosis. Buccal mucosa pink and moist and without leukoplakia. Tongue midline with equal elevation of palate bilaterally. No tonsillar hypertrophy, erythema, or exudates noted. dentition noted. NECK - Neck with FROM. Supple to palpation. lymphadenopathy noted. No nuchal rigidity. LUNGS - Chest wall symmetric without accessory muscle use, intercostals retractions, or central cyanosis. Normal vesicular breath sounds CTA B/L. No wheezes, rales, or rhonchi appreciated. CARDIAC - RRR with S1/S2. No murmur, rubs, or gallops appreciated. ABDOMEN - Abdominal contour without pulsations or visible masses. BS normoactive all four quadrants. No tenderness, palpable masses, hepatosplenomeg chema, or ascites noted. EXTREMITIES - No clubbing or peripheral cyanosis. No pretibial edema present. +3/5 radial, posterior tibial, and dorsalis pedis pulses palpated throughout. +5/5 strength noted in UE/LE bilaterally. NEUROLOGIC - Cranial nerves II through XII grossly intact. Sensory intact to light touch throughout. Patellar reflexes +2/4. PSYCH - A&Ox3 and cooperates fully with examiner. Pt is very pleasant and interacts well with examiner. Course Administered Medications Discontinued Medications Apixaban (Apixaban 5 Mg Tablet) 5 mg PO ONE STA Stop: 05/03/20 12:23 Last Admin: 05/03/20 12:49 Dose: 5 mg Documented by: [id number] Apixaban (Apixaban 5 Mg Tablet) 5 mg PO BID JAXON Stop: 06/02/20 20:59 Last Admin: 05/04/20 09:05 Dose: 5 mg Documented by: [id number] Admin: 05/03/20 20:39 Dose: 5 mg Documented by: [id number] Sodium Chloride (Nss) 500 mls @ 999 mls/hr IV .Q31M JAXON Stop: 05/03/20 09:45 Last Infusion: 05/03/20 10:36 Dose: 0 mls/hr Documented by: [id number] Admin: 05/03/20 09:54 Dose: 999 mls/hr Documented by: [id number] Ceftriaxone Sodium (Rocephin) 2,000 mg in 70 mls @ 140 mls/hr IV NOW STA Stop: 05/03/20 11:50 Last Infusion: 05/03/20 12:37 Dose: 0 mls/hr Documented by: [id number] Admin: 05/03/20 12:06 Dose: 140 mls/hr Documented by: [id number] Losartan Potassium (Losartan Potassium 25 Mg Tab) 25 mg PO QAM JAXON Stop: 06/03/20 08:59 Last Admin: 05/04/20 09:06 Dose: 25 mg Documented by: [id number] Metoprolol Succinate (Metoprolol Succ 50mg Ext Rel Tab) 200 mg PO NOW STA Stop: 05/03/20 12:24 Last Admin: 05/03/20 12:47 Dose: 200 mg Documented by: [id number] Metoprolol Succinate (Metoprolol Succ 50mg Ext Rel Tab) 200 mg PO DAILY [facility] Stop: 06/03/20 08:59 Last Admin: 05/04/20 09:06 Dose: 200 mg Documented by: [id number] Mirabegron (Mirabegron Er 25 Mg Tab) 25 mg PO DAILY [facility] Stop: 06/03/20 08:59 Last Admin: 05/04/20 09:05 Dose: 25 mg Documented by: [id number] Miscellaneous (Pitavastatin Calcium [Livalo] 4 Mg Tablet: Order Awaiting Action) 1 ea N/A QS [facility] Stop: 06/03/20 07:59 Last Admin: 05/04/20 08:57 Dose: Not Given Documented by: [id number] Multivitamins (Multivitamin Tab) 1 tab PO DAILY [facility] Stop: 06/03/20 08:59 Last Admin: 05/04/20 09:05 Dose: 1 tab Documented by: [id number] Pantoprazole Sodium (Pantoprazole 40 Mg Tab) 40 mg PO QAM JAXON Stop: 06/03/20 08:59 Last Admin: 05/04/20 09:05 Dose: 40 mg Documented by: [id number] Polyethylene Glycol (Polyethylene (Miralax) 17 Gm Pack) 17 gm PO TID [facility] Stop: 06/02/20 16:14 Last Admin: 05/04/20 09:04 Dose: Not Given Documented by: [id number] Admin: 05/03/20 20:39 Dose: 17 gm Documented by: [id number] Admin: 05/03/20 17:12 Dose: 17 gm Documented by: [id number] Pregabalin (Pregabalin 100 Mg Cap) 100 mg PO TID [facility] Stop: 06/02/20 16:14 Last Admin: 05/04/20 09:05 Dose: 100 mg Documented by: [id number] Admin: 05/03/20 20:41 Dose: Not Given Documented by: [id number] Admin: 05/03/20 17:12 Dose: 100 mg Documented by: [id number] Spironolactone (Spironolactone 25 Mg Tab) 25 mg PO NOW [facility] Stop: 05/03/20 12:25 Last Admin: 05/03/20 12:49 Dose: 25 mg Documented by: [id number] Spironolactone (Spironolactone 25 Mg Tab) 25 mg PO DAILY [facility] Stop: 06/03/20 08:59 Last Admin: 05/04/20 09:05 Dose: 25 mg Documented by: [id number] Vitamin D (Cholecalciferol 1,000 Units 25 Mcg Tab) [facility] [place] [place] Stop: 06/03/20 08:59 Last Admin: 05/04/20 09:06 Dose: 1,000 units Documented by: [id number] Medical Decision Making Differential Diagnosis Infection, dehydration, metabolic abnormality, hypo/hyperglycemia, electrolyte disturbance, anemia, hypoxia, cardiac sources, intracerebral event, toxicologic, neurologic, as well as other pathologies. Medical Records Attestation: I reviewed the patient's medical records. Home Medications Current Medication List: was personally reviewed by me Laboratory Data Attestation: I reviewed the patient's lab results. Result diagrams: 05/04/20 05:17 05/04/20 05:17 Lab Results 05/03/20 05/03/20 05/03/20 Range/Units 09:25 09:25 09:35 WBC 10.46 (4.8-10.8) K/uL RBC 4.23 (4.2-5.4) M/uL Hgb 13.8 (12.0-16.0) g/dL Hct 41.4 (37-47) % MCV 97.9 (80-100) fL MCH 32.6 (25-34) pg MCHC 33.3 (32-36) g/dL RDW Std Deviation 46.9 H (36.4-46.3) fL RDW Coeff of Rudy 13.1 (11.5-14.5) % Plt Count 153 (130-400) K/uL MPV 12.8 H (7.4-10.4) fL Immature Gran % (Auto) 0.3 % Neut % (Auto) 79.9 % Lymph % (Auto) 11.0 % [place] % (Auto) 8.7 % Eos % (Auto) 0.0 % Baso % (Auto) 0.1 % Neut # (Auto) 8.36 H (1.4-6.5) K/uL Lymph # (Auto) 1.15 L (1.2-3.4) K/uL [place] # (Auto) 0.91 H (0.11-0.59) K/uL Eos # (Auto) 0.00 (0-0.5) K/uL Baso # (Auto) 0.01 (0-0.2) K/uL Immature Gran # (Auto) 0.03 H (0.00-0.02) K/uL Sodium 143 (136-145) mmol/L Potassium 4.1 D (3.5-5.1) mmol/L Chloride 109 H (98-107) mmol/L Carbon Dioxide 24 (21-32) mmol/L Anion Gap 10.0 (3-11) BUN 15 (7-18) mg/dl Creatinine 1.02 (0.6-1.2) mg/dl Est Cr Clr Drug Dosing 43.1 ml/min Est GFR ( Amer) 58.5 Est GFR (Non-Af Amer) 50.5 BUN/Creatinine Ratio 14.3 (10-20) Glucose 137 H (70-99) mg/dl Calcium 10.5 H (8.5-10.1) mg/dl Total Bilirubin 1.0 D (0.2-1) mg/dl AST 35 (15-37) U/L ALT 29 (12-78) U/L Alkaline Phosphatase 97 (45-117) U/L Total Creatine Kinase 75 (26-192) U/L CK-MB (CK-2) 1.0 (0.5-3.6) ng/ml CK/CKMB % Calc 1.3 (0-3.0) Troponin I < 0.015 (0-0.045) ng/ml Total Protein 7.7 (6.4-8.2) gm/dl Albumin 3.7 (3.4-5.0) gm/dl Globulin 4.0 (2.5-4.0) gm/dl Albumin/Globulin Ratio 0.9 (0.9-2) TSH 1.140 (0.300-4.500) uIu/ml COVID-19 Eval Order Covid19 IDNow Replaced by [facility] SARS-CoV-2, RNA, NAAT (NEGATIVE) 05/03/20 Range/Units 09:35 WBC (4.8-10.8) K/uL RBC (4.2-5.4) M/uL Hgb (12.0-16.0) g/dL Hct (37-47) % MCV (80-100) fL MCH (25-34) pg MCHC (32-36) g/dL RDW Std Deviation (36.4-46.3) fL RDW Coeff of Rudy (11.5-14.5) % Plt Count (130-400) K/uL MPV (7.4-10.4) fL Immature Gran % (Auto) % Neut % (Auto) % Lymph % (Auto) % [place] % (Auto) % Eos % (Auto) % Baso % (Auto) % Neut # (Auto) (1.4-6.5) K/uL Lymph # (Auto) (1.2-3.4) K/uL [place] # (Auto) (0.11-0.59) K/uL Eos # (Auto) (0-0.5) K/uL Baso # (Auto) (0-0.2) K/uL Immature Gran # (Auto) (0.00-0.02) K/uL Sodium (136-145) mmol/L Potassium (3.5-5.1) mmol/L Chloride (98-107) mmol/L Carbon Dioxide (21-32) mmol/L Anion Gap (3-11) BUN (7-18) mg/dl Creatinine (0.6-1.2) mg/dl Est Cr Clr Drug Dosing ml/min Est GFR ( Amer) Est GFR (Non-Af Amer) BUN/Creatinine Ratio (10-20) Glucose (70-99) mg/dl Calcium (8.5-10.1) mg/dl Total Bilirubin (0.2-1) mg/dl AST (15-37) U/L ALT (12-78) U/L Alkaline Phosphatase (45-117) U/L Total Creatine Kinase (26-192) U/L CK-MB (CK-2) (0.5-3.6) ng/ml CK/CKMB % Calc (0-3.0) Troponin I (0-0.045) ng/ml Total Protein (6.4-8.2) gm/dl Albumin (3.4-5.0) gm/dl Globulin (2.5-4.0) gm/dl Albumin/Globulin Ratio (0.9-2) TSH (0.300-4.500) uIu/ml COVID-19 Eval Order SARS-CoV-2, RNA, NAAT NEGATIVE (NEGATIVE) Imaging Data Radiologist's Impression: [facility], [id number] XRay Report Patient: SARA NOEL Date: 05/03/20MR#: [id number]: [address] [facility] ID:[id number]: Date: [address] [place] [address] Zip: [place], [place] [address]Fnm: 84Location: EDSex: FRoom/Bed:Att Phy:Diagnosis: FALLPri Phy: Esa Muller, DOService Date: 05/03/20Fam Phy:Interpreting Phy: Juan Manuel Short Phy: Ordering Phy: Sherif Salcido MD cc: ~ XR chest 1V portable HISTORY: 84 years-old Female weakness acute weakness COMPARISON: Chest radiograph 01/13/2020 TECHNIQUE: Portable AP view of the chest FINDINGS: Cardiac silhouette is enlarged, unchanged. Calcified plaque of the thoracic aorta. There is no pneumothorax, pleural effusion, airspace consolidation or overt pulmonary edema. Degenerative changes of the shoulders and spine. Hiatal hernia. Cholecystectomy. IMPRESSION: 1. Cardiomegaly without acute process. 2. Hiatal hernia. ACT 112: Negative or not required by law. The above report was generated using voice recognition software. It may contain grammatical, syntax or spelling errors. Electronically signed by: Bharath Arrieta M.D. 05/03/2020 9:41 AM Dictated: 05/03/[address] [facility], [phone] CT Scan Report Patient: SARA NOEL RAdmit Date: 05/03/20MR#: [id number]: 14[address] [facility] ID:[id number]: Date: [address] [place] [address] Zip: [place], [place] [address]Bvw: 84Location: EDSex: FRoom/Bed:Att Phy:Diagnosis: FALLPri Phy: Esa Muller, DOService Date: 05/03/20Fa Phy:Interpreting Phy: Juan Manuel R BotteicherAdmit Phy: Ordering Phy: Sherif Salcido MD cc: ~ CT head/brain wo con CLINICAL HISTORY: 84 years-old Female with fall, weakness. Acute head injury status post fall TECHNIQUE: Multiple axial CT images of the head were obtained without contrast. A dose lowering technique was utilized adhering to the principles of ALARA. CT DOSE: 614.27 mGy.cm COMPARISON: Brain MRI 11/25/2019. FINDINGS: No acute intracranial hemorrhage, midline shift, intracranial mass, hydrocephalus, territorial ischemia or abnormal extra-axial collection. Age- related involutional changes with ex vacuo ventriculomegaly. Patchy white matter hypodensities suggest chronic microvascular ischemic disease. Cerebral vascular calcifications. The calvarium is intact. Prior bilateral lens repair. The paranasal sinuses, ma stoid air cells, and middle ear cavities are clear. IMPRESSION: No acute intracranial abnormality or calvarial fracture. ACT 112: Negative or not required by law. The above report was generated using voice recognition software. It may contain grammatical, syntax or spelling errors. Electronically signed by: Bharath Arrieta M.D. 05/03/2020 10:58 AM Dictated: 05/03/20 1056Transcribed: 05/03/[address] [facility], [id number] XRay Report Patient: SARA NOEL Date: 05/03/20#: [id number]: [address] [facility] ID:[id number]: Date: [address] [place] [address] Zip: [place], [place] [address]Bnx: 84Location: EDSex: FRoom/Bed:Att Phy:Diagnosis: FALLPri Phy: Esa Muller, DOService Date: 05/03/20Fam Phy:Interpreting Phy: Jesus Salinas MDAdmit Phy: Ordering Phy: Bryan Henson MD cc: ~ XR shoulder RT min 2V routine CLINICAL HISTORY: right shoulder pain COMPARISON: None. DISCUSSION: No acute fractures or dislocations are visualized. There are advanced osteoarthritic changes. Degenerative changes are present within the AC joint. IMPRESSION: 1. Advanced osteoarthritic change 2. No acute fractures or dislocations ACT 112: Negative or not required by law. Electronically signed by: Jesus Salinas M.D. 05/03/2020 1:31 PM Dictated: 05/03/201329Transcribed: 05/03/201329 [facility], [id number] Ultrasound Report Patient: SARA NOEL Date: 05/03/20#: [id number]: [address] ID:[id number]: [facility] Zip: [place], [place] [address]Lez: 84Location: EDSex: FRoom/Bed:Att Phy:Diagnosis: FALLPri Phy: Esa Muller, DOService Date: 05/03/20Fam Phy:Interpreting Phy: Nathan Camarena MDAdmit Phy: Ordering Phy: Bryan Henson MD cc: ~ LEFT LOWER EXTREMITY VENOUS DOPPLER CLINICAL HISTORY: Left lower extremity swelling. COMPARISON STUDY: Left lower extremity venous Doppler ultrasound December 14, 2017. TECHNIQUE: Sonography of the deep venous system of the left lower extremity was performed. Compression and augmentation were evaluated. FINDINGS: The left common femoral, superficial femoral and popliteal veins were compressible. Augmentation was normal. Flow was shown within the deep calf vessels. Note is made of a 6.2 x 3.1 x 1.1 cm left popliteal cyst which has slightly decreased in size since ultrasound of December 14, 2017. IMPRESSION: 1. No evidence of deep venous thrombus within the left lower extremity. 2. 6.2 x 3.1 x 1.1 cm left popliteal cyst. ACT 112: Negative or not required by law. Electronically signed by: Nathan Camarena M.D. 05/03/2020 3:47 PM Dictated: 05/03/20 154Transcribed: 05/03/201546 ECG Data Attestation: I personally reviewed and interpreted this ECG as follows: Indication: + weakness Rate (beats per minute): 92 Rhythm: + atrial fibrillation ECG Intervals/blocks: + Prolonged QT ECG Hedrick: + Normal ECG ST segments: + T-wave inversions (Lateral); no ST depression and no ST elevation Comparison ECG Date: from (05/02/2020) Change: the following changes noted (T wave inversions in lateral leads) MDM Narrative Patient was seen and evaluated as above in room C9. Review was performed of nursing notes and vital signs. I did review pertinent previous visits and patient history. After obtaining a thorough history and physical examination the above work up was performed. This is an 84-year-old female who presents the emergency department with generalized weakness after being diagnosed with a urinary tract infection yesterday. Patient was started on IV Rocephin. She does not have an elevation in her white blood cell count. Due to the patient's weakness I did discuss the case with the hospitalist service who did agree to admit the patient. Patient and are agreement with treatment plan An order was placed for continuous cardiac monitoring. The monitor shows a rate of 100 with Afib rhythm. The patient was evaluated during a period of high volume and high acuity while the hospital was at overcapacity during the global COVID-19 pandemic, and that diagnosis was suspected/considered upon their initial presentation. Their evaluation, treatment and testing was consistent with current guidelines for patients who present with complaints or symptoms that may be related to COVID- 19. Impression & Plan Generalized weakness, Atrial fibrillation, Acute UTI Discharge Plan Visit Data Chief Complaint: Fall ED Provider: Sherif Salcido Discharge Problem: Generalized weakness, Atrial fibrillation, Acute UTI Patient Disposition: Admitted As Inpatient Discharge Instructions Interventions: ED Discharge Assessment Last Done: 05/03/20 14:54 Discharge Problem: Atrial fibrillation Qualifiers: Atrial fibrillation type: unspecified Qualified Code(s): I48.91 - Unspecified atrial fibrillation
[2020-05-03] MEDS: POLYETHYLENE (MIRALAX) 17 GM PACK PO SCH ×2 (17:12→20:39)
[2020-05-03] MEDS: PREGABALIN 100 MG CAP PO SCH ×2 (17:12→20:41)
[2020-05-03] MEDS: APIXABAN 5 MG TABLET PO SCH (20:39)
[2020-05-04 06:02] LABS: Basophils # (auto) 0.01 K/uL (0-0.2); Basophils % (auto) 0.1 %; Eosinophils # (auto) 0.03 K/uL (0-0.5); Eosinophils % (auto) 0.4 %; Hematocrit (blood only) 38.5 % (37-47); Hemoglobin 12.7 g/dL (12.0-16.0); Immature Granulocytes # (auto) 0.03 K/uL (0.00-0.02); Immature Granulocytes % (auto) 0.4 %; Lymphocytes # (auto) 1.99 K/uL (1.2-3.4); Mean Corpuscular Hemoglobin 32.3 pg (25-34); Mean Platelet Volume 12.5 fL (7.4-10.4); Monocytes # (auto) 0.84 K/uL (0.11-0.59); Monocytes % (auto) 10.6 %; Neutrophils # (auto) 5.06 K/uL (1.4-6.5); Neutrophils % (auto) 63.5 %; Platelet Count 139 K/uL (130-400); RDW Coefficient of Variation 13.1 % (11.5-14.5); RDW Standard Deviation 47.2 fL (36.4-46.3); Red Blood Count 3.93 M/uL (4.2-5.4); White Blood Count 7.96 K/uL (4.8-10.8)
[2020-05-04 06:24] LABS: Albumin Level 3.1 gm/dl (3.4-5.0); BUN Creatinine Ratio 18.5 (10-20); Calcium 9.5 mg/dl (8.5-10.1); Creatinine Clr Calc Pharmacy 49.5 ml/min; Est GFR (Non-African American) 59.5; Potassium 3.8 mmol/L (3.5-5.1)
[2020-05-04 06:26] LABS: Albumin Globulin Ratio 0.9 (0.9-2); Bilirubin,Total 0.6 mg/dl (0.2-1); Globulin 3.6 gm/dl (2.5-4.0); Total Protein 6.7 gm/dl (6.4-8.2)
[2020-05-04] MEDS ORDERED: PANTOprazole 40 MG TAB PO SCH (09:00)
[2020-05-04] MEDS ORDERED: MULTIVITAMIN TAB PO SCH (09:00)
[2020-05-04] MEDS ORDERED: SPIRONOLACTONE 25 MG TAB PO SCH (09:00)
[2020-05-04] MEDS ORDERED: LOSARTAN POTASSIUM 25 MG TAB PO SCH (09:00)
[2020-05-04] MEDS ORDERED: METOPROLOL SUCC 50MG EXT REL TAB PO SCH (09:00)
[2020-05-04] MEDS ORDERED: CHOLECALCIFEROL 1,000 UNITS 25 MCG TAB PO SCH (09:00)
[2020-05-04] MEDS ORDERED: MIRABEGRON ER 25 MG TAB PO SCH (09:00)
[2020-05-04] MEDS: POLYETHYLENE (MIRALAX) 17 GM PACK PO SCH (09:04)
[2020-05-04] MEDS: PREGABALIN 100 MG CAP PO SCH (09:05)
[2020-05-04] MEDS: APIXABAN 5 MG TABLET PO SCH (09:05)
--- NOTE | 2020-05-04 10:41 | Discharge Summary ---
Date of Service May 04, 2020 Admission HPI Per Admitting Provider Shreya Hendrix is an 84 year old female who presents to the ER with Fall out of bed. Discussed approximately 5 AM today and she spent 2 hours in the floor. She lives with her however they were not in the same room. Nausea and vomiting since SundayApr 21. Chills last night No BM for 1 week. No abdominal pain outside of nausea episodes. Similar symptoms to when she has had UTIs in the past. No melena or bright red blood in stool Principal Diagnosis nausea Discharge Exam Constitutional: well developed and well nourished; no acute distress Eyes: PERRL, conjunctivae normal, anicteric sclerae ENMT: external ear and nose normal, oropharynx normal Neck: trachea midline, no thyromegaly Respiratory: normal respiratory effort, lungs clear to auscultation Cardiovascular: Rate/Rhythm: + irregularly irregular Heart Sounds: no murmur Vessels: no JVD Extremities: normal capillary refill and + pedal edema (1+ on left, no edema on right); no calf tenderness Neurologic: moves all extremities and awake; no focal motor deficits and not confused Speech / Cognition: normal speech Motor/Sensory: no tremor and no pronator drift Psychiatric: A+Ox3, euthymic affect Genitourinary: no CVA tenderness Discharge Data Allergies Allergy/AdvReac Type Severity Reaction Status Date / Time atorvastatin AdvReac Intermediate liver Verified 05/03/20 09:52 enzymes elevate lisinopril AdvReac Verified 05/03/20 09:52 Consultations 05/03/20 11:58 ED Decision to Admit Stat Ordered Studies 05/03/20 09:07 CT head/brain wo con Stat 05/03/20 12:44 US venous doppler LE LT Stat Hospital Course (1) Constipation: Suspect this is the main cause of her nausea and vomiting which lead to her admission. MiraLAX 17g TID Patient had a large BM today and is feeling much better. Does use pain medicine intermittently throughout the week, but not daily. Recommended to not use this daily. (2) Nausea: Suspect secondary to constipation as above. No definitive urine tract infection on prior UA. will hold off antibiotics. (3) Renal infarct: Noted on prior CT on 05/02. No significant CVA tenderness on left compared to right side. will recommend followup with Urology to confirm no mass. (4) Atrial fibrillation: Continue anticoagulation with apixaban 5mg PO BID Continue rate control with metoprolol succinate 200mg PO daily (5) Generalized weakness: (6) Hypertension: (7) Right shoulder pain: Right shoulder XR: will defer further management to PCP. (8) PAD (peripheral artery disease): (9) Gastroesophageal reflux disease: (10) Chronic kidney disease: Total Time Total Time Spent Total Time Spent (In Minutes): 32 Total Time Includes: Examination of the Patient, Discharge Planning and Medication Reconciliation Discharge Plan Discharge Items Patient Disposition: Home - Self-Care Reason For Visit: NAUSEA, VOMITING, CONSTIPATION, UNABLE TO MANAGE A Discharge Diagnosis: nausea, vomiting Activity: Resume your previous activity Non-emergency contact: Primary Care Provider Call non-emergency contact if: you have any medication questions Follow-up/Referrals: Esa Muller, [Primary Care Provider] - Diet: Heart Healthy and Low Sodium (2gm) Addtl Attending Provider Instructions: You have been hospitalized for an acute medical problem. During your stay at [facility], we have made an effort to correct the problem that brought you to the hospital while keeping you as comfortable as possible. Medications were used to bring your condition under control and your discharge instructions will include directions for any medications you should take after leaving the hospital. Please make sure you see your Primary Care Provider as part of your follow up plan. will recommend followup with Urology to discuss renal infarct. followup with PCP in 1-2 weeks. Pending Studies at Discharge: No Stand-Alone Forms: My [facility], Smoking Cessation Medications and DC Order Prescriptions: New polyethylene glycol 3350 [Miralax] 17 gram Powder In Packet 17 g PO TID PRN (Reason: constipation) Qty: 30 RF: 0 Continued furosemide 40 mg tablet 40 mg PO BID PRN (Reason: edema) Qty: 60 RF: 0 ozbqopaxdq-elakcyqnhdndi-gfdi 50-325-40 mg tablet 1 tab PO BID PRN (Reason: pain) Qty: 30 RF: 1 Eliquis 5 mg tablet 5 mg PO BID Qty: 60 RF: 2 spironolactone 25 mg tablet 25 mg PO DAILY Qty: 90 RF: 3 Livalo 4 mg tablet 4 mg PO DAILY Qty: 90 RF: 3 hydrocodone-acetaminophen 5-325 mg tablet 1 tab PO DAILY PRN (Reason: pain) Qty: 30 RF: 0 multivitamin [Multiple Vitamins] tablet 1 tab PO DAILY RF: 0 cholecalciferol (vitamin D3) 1,000 unit capsule 1,000 units PO QAM RF: 0 betamethasone acet,sod phos 6 mg/mL suspension 6 mg IA ONCE Qty: 1 RF: 0 metoprolol succinate 200 mg tablet extended release 24 hr 200 mg PO DAILY Qty: 90 RF: 3 bisacodyl [Dulcolax (bisacodyl)] 10 mg suppository 10 mg [place] DAILY PRN (Reason: constipation) Qty: 12 RF: 0 mirabegron 25 mg tablet extended release 24 hr 25 mg PO DAILY RF: 0 zoledronic shbi-seonmesl-vzqwe 5 mg/100 mL piggyback 5 mg IV ONCE RF: 0 dexlansoprazole 60 mg capsule,biphase delayed releas 60 mg PO QAM RF: 0 losartan 25 mg tablet 25 mg PO QAM RF: 0 ondansetron 4 mg tablet,disintegrating 4 mg PO Q6 PRN (Reason: nausea and vomiting) Qty: 14 RF: 0 pregabalin 100 mg capsule 100 mg PO TID RF: 0 cephalexin [Keflex] 500 mg capsule 500 mg PO BID 7 Days Qty: 14 RF: 0 Discharge Orders: Discharge Order (Routine); Ordered 05/04/20 Ordered By: Bill See Admission Data Admit Date/Time: 05/03/20 12:33 Attending Provider: Bill See Admit Provider: Bryan Henson Primary Care Provider: Esa Muller Other Providers: Bryan Henson Coding Level of Care Code 70262 OBS Care - Discharge Diagnoses Constipation K59.00 Constipation type: unspecified constipation type Nausea R11.0 Renal infarct N28.0 Atrial fibrillation I48.20 Atrial fibrillation type: unspecified chronic Generalized weakness R53.1 Hypertension I10 Hypertension type: essential hypertension Right shoulder pain M25.511 PAD (peripheral artery disease) I73.9 Gastroesophageal reflux disease K21.9 Chronic kidney disease N18.9
--- NOTE | 2020-05-17 07:41 | Coding Query ---
A supporting diagnosis is required for the test/procedure performed on this patient in order for us to be reimbursed by the patient's insurance. Please provide a supporting diagnosis for the following test/procedure listed below next to the test name along with your signature. *If there is no additional diagnosis for this patient that would support the following test/procedure please document that below next to the test/procedure. Test(s)/Procedure(s) that require a supporting diagnosis: LEFT LE VENOUS DOPPLER DIAGNOSIS: Left leg swelling rule out DVT Provider Signature: Date: Thank you Alyson Mcnamara Health Information Management Once completed, please kindly fax back to [phone] For questions please call [phone] [facility]
== END 2020-05-04 12:30 | disposition home or self-care (01) ==
LOC: ED 08:54 → 3N 08:54 → SUATTDRO 12:33 → 3N 14:54

== ENCOUNTER 2021-02-08 18:29 | Inpatient (IN) ==
--- NOTE | 2021-02-08 20:06 | Emergency Department Note ---
History of Present Illness General Chief complaint: Shortness of Breath/Dyspnea Stated complaint: SHORTNESS OF BREATH Time Seen by Provider: 02/08/21 19:48 Source: patient Mode of arrival: ambulatory Limitations: no limitations History of Present Illness Provider complaint: Nausea, shortness of breath Onset (ago): day(s) 2 Exacerbated By: + eating and + movement Associated symptoms: + chest pain, + fever/chills, + loss of appetite, + malaise, + nausea/vomiting and + shortness of breath; no cough or no headaches Treatments prior to arrival: none This is an 85-year-old female presents emergency department with complaints of 2 to 3 days of nausea, fluttering in the chest, and shortness of breath. Patient denies any abdominal pain or diarrhea. Patient denies noting any change in her urine. She states she has been able to take her usual medications due to the nausea. She denies overt vomiting, however admits to poor p.o. intake due to the nausea. at bedside states he is concerned about her elevated heart rate as she has not been taking heart medication. Patient states she has a history of atrial fibrillation, does follow with Bishop Hightower PA-C for cardiology and does take a blood thinner. No known sick contact at home, patient denies any potential exposure to coronavirus. Both patient and deny any concern for foodborne illness. Pt seen during a time of high acuity and national emergency pandemic while wearing PPE. Home Medications Medication Instructions Recorded Confirmed Type cholecalciferol (vitamin D3) 25 1,000 units PO QAM cap 02/20/19 02/08/21 History mcg (1,000 unit) capsule multivitamin (Multiple Vitamins) 1 tab PO DAILY 02/20/19 02/08/21 History metoprolol succinate 200 mg 200 mg PO DAILY #90 tab 02/24/20 02/08/21 Rx tablet,extended release 24 hr polyethylene glycol 3350 17 gram 17 g PO TID PRN #30 ea 05/04/20 02/08/21 Rx oral powder packet (Miralax) dexlansoprazole 60 mg 60 mg PO QAM #90 cap 07/01/20 02/08/21 Rx capsule,biphase delayed release furosemide 20 mg tablet (Lasix) 20 mg PO BID PRN 08/01/20 02/08/21 History diltiazem HCl 90 mg 90 mg PO BID #180 cap 09/08/20 02/08/21 Rx capsule,extended release 12 hr losartan 25 mg tablet 25 mg PO QAM #90 tab 09/08/20 02/08/21 Rx mirabegron 25 mg tablet,extended 25 mg PO DAILY #90 tab 11/23/20 02/08/21 Rx release 24 hr nitrofurantoin macrocrystal 50 mg 50 mg PO HS #30 cap 01/03/21 02/08/21 Rx capsule (Macrodantin) gzpuciijup-kycpotdemgcou-jkacinbs 1 tab PO BID PRN #30 tab 01/06/21 02/08/21 Rx 50 mg-325 mg-40 mg tablet rivaroxaban 20 mg tablet (Xarelto) 20 mg PO QPM #30 tab 01/18/21 02/08/21 Rx spironolactone 25 mg tablet 25 mg PO DAILY #90 tab 01/18/21 02/08/21 Rx pregabalin 100 mg capsule 100 mg PO TID #90 cap 01/28/21 02/08/21 Rx pitavastatin calcium 4 mg tablet 4 mg PO DAILYBB 02/08/21 02/08/21 History (Livalo) Allergies Allergy/AdvReac Type Severity Reaction Status Date / Time atorvastatin AdvReac Intermediate liver Verified 02/08/21 19:54 enzymes elevate lisinopril AdvReac Unknown Verified 02/08/21 19:54 Past Med/Surg History Medical History Altered mental status Aortic regurgitation Arthritis of both feet Atrial fibrillation Atrial fibrillation with rapid ventricular response Chronic headache disorder Degenerative arthritis of knee, bilateral Gastroenteritis High cholesterol History of deep venous thrombosis Hypertension Hypokalemia Left kidney mass [facility] Neuropathy Osteoarthritis Osteoporosis PAD (peripheral artery disease) Popliteal cyst Posterior tibial tendon dysfunction Thoracic ascending aortic aneurysm Venous insufficiency Surgical History History of back surgery History of cholecystectomy History of hysterectomy History of tubal ligation Family History Mother Breast cancer Hypertension Coronary heart disease Father Coronary heart disease Myocardial infarction Sister Breast cancer Colorectal cancer Ovarian cancer Denies family history of Prostate cancer Social History (Reviewed 02/08/21 @ 20:05 by HECTOR Nguyen Smoking Status: Unknown if ever smoked Hx Alcohol Use: Yes Alcohol type: wine Hx Substance Use: No Preferred Language: Slovak Communication Ability: Effective Visual Impairment: Limited Hearing Ability: Normal Linoleum Tile Floor Layer Required: No Beliefs That Will Affect Care: None marital status: Current Living Situation: Spouse Current Living Situation Comment: verbalizes he is unable to take care of pt. current occupational status: retired current occupation: part-time How many Children do You have: 3 Feels Safe at Home: Yes Childhood Exposure to Second-Hand Smoke: No caffeine: No Dental Care, Regularly: Yes Physical Activity Frequency: Does not Exercise Seatbelt Use: always Sunscreen Use: Yes Assistive Devices: Cane and Walker Review of Systems A total of 10 systems reviewed and were otherwise negative All systems reviewed & are unremarkable except as noted in HPI & below Physical Exam Vital Signs Vital Signs - 24 hr 02/08/21 18:34 02/08/21 19:56 02/08/21 19:58 Temperature 36.4 C L Temperature Source Temporal Artery Scan Pulse Rate 111 H 124 H Pulse Rate from SpO2 Sensor Respiratory Rate 16 26 H Respiratory Effort / Characteristics Spontaneous Respiratory Depth Normal Blood Pressure 141/79 H 172/74 H Blood Pressure Mean 99 106 Pulse Oximetry 96 97 Oxygen Delivery Method Sepsis Recent Fever Within 48 Hours No Sepsis New/Unexplained Change in Mental Status No Sepsis Action Taken by Nursing No Action Required 02/08/21 20:01 02/08/21 20:04 02/08/21 20:31 Temperature Temperature Source Pulse Rate 111 H 116 H Pulse Rate from SpO2 Sensor 90 Respiratory Rate 22 22 Respiratory Effort / Characteristics Respiratory Depth Blood Pressure 160/103 H 154/104 H Blood Pressure Mean 122 120 Pulse Oximetry 98 98 98 Oxygen Delivery Method Room Air Sepsis Recent Fever Within 48 Hours Sepsis New/Unexplained Change in Mental Status Sepsis Action Taken by Nursing 02/08/21 21:01 02/08/21 22:01 02/08/21 22:48 Temperature Temperature Source Pulse Rate 93 H 110 H 92 H Pulse Rate from SpO2 Sensor 89 Respiratory Rate 20 18 18 Respiratory Effort / Characteristics Respiratory Depth Blood Pressure 131/95 99/71 L 136/86 Blood Pressure Mean 107 80 102 Pulse Oximetry 95 96 97 Oxygen Delivery Method Sepsis Recent Fever Within 48 Hours Sepsis New/Unexplained Change in Mental Status Sepsis Action Taken by Nursing 02/08/21 23:00 02/08/21 23:30 02/09/21 00:02 Temperature Temperature Source Pulse Rate 84 74 92 H Pulse Rate from SpO2 Sensor 85 88 Respiratory Rate 27 H 20 18 Respiratory Effort / Characteristics Respiratory Depth Blood Pressure 158/94 H 128/97 Blood Pressure Mean 115 107 Pulse Oximetry 96 95 87 L Oxygen Delivery Method Sepsis Recent Fever Within 48 Hours Sepsis New/Unexplained Change in Mental Status Sepsis Action Taken by Nursing 02/09/21 00:10 02/09/21 00:20 02/09/21 00:30 Temperature Temperature Source Pulse Rate 97 H 93 H 103 H Pulse Rate from SpO2 Sensor 88 90 104 H Respiratory Rate 16 18 18 Respiratory Effort / Characteristics Respiratory Depth Blood Pressure Blood Pressure Mean Pulse Oximetry 96 97 97 Oxygen Delivery Method Sepsis Recent Fever Within 48 Hours Sepsis New/Unexplained Change in Mental Status Sepsis Action Taken by Nursing 02/09/21 00:40 02/09/21 01:00 Temperature Temperature Source Pulse Rate 126 H 92 H Pulse Rate from SpO2 Sensor Respiratory Rate 20 22 Respiratory Effort / Characteristics Respiratory Depth Blood Pressure 127/81 Blood Pressure Mean 96 Pulse Oximetry 95 Oxygen Delivery Method Sepsis Recent Fever Within 48 Hours Sepsis New/Unexplained Change in Mental Status Sepsis Action Taken by Nursing GENERAL: alert, well appearing, well nourished, no distress, non-toxic EYE EXAM: normal conjunctiva, PERRL and EOM's grossly intact OROPHARYNX: no exudate, no erythema, lips, buccal mucosa, and tongue normal and mucous membranes are dry NECK: supple, no nuchal rigidity, no adenopathy, non-tender LUNGS: Clear to auscultation. Normal chest wall mechanics, no w/r/r HEART: no murmurs, S1 normal and S2 normal, tachycardia at 126, A. fib on telemetry ABDOMEN: abdomen soft, non-tender, normo-active bowel sounds, no masses, no rebound or guarding. BACK: Back is symmetrical on inspection and there is no deformity, no midline tenderness, no CVA tenderness. SKIN: no rashes and no bruising UPPER EXTREMITIES: upper extremities are grossly normal. FROM, nml pulses b/l. LOWER EXTREMITIES: No pitting edema. FROM, nml pulses b/l. NEURO EXAM: Normal sensorium, cranial nerves II-XII grossly intact, normal speech, no gross weakness of arms, no gross weakness of legs. Gross sensation intact. Course Course 2214: Pt updated on results. States still nauseated. Administered Medications Acetaminophen (Acetaminophen 325 Mg Tab) 650 mg PO Q4H PRN PRN Reason: Pain or Fever Stop: 03/11/21 04:27 Last Admin: 02/09/21 06:27 Dose: 650 mg Documented by: [id number] Acetaminophen/Butalbital/Caffeine (Butalbital/Acetamin/Caffeine Tab) 1 tab PO Q12H PRN PRN Reason: pain Stop: 03/11/21 10:57 Last Admin: 02/10/21 16:20 Dose: 1 tab Documented by: [id number] Ceftriaxone Sodium 2,000 mg/ (Dextrose) 70 mls @ 100 mls/hr IV Q24H JAXON; Protocol Stop: 02/19/21 21:59 Last Infusion: 02/10/21 21:49 Dose: 0 mls/hr Documented by: [id number] Admin: 02/10/21 20:31 Dose: 100 mls/hr Documented by: [id number] Infusion: 02/09/21 23:57 Dose: 0 mls/hr Documented by: [id number] Admin: 02/09/21 23:10 Dose: 100 mls/hr Documented by: [id number] Metoprolol Succinate (Metoprolol Succ 50mg Ext Rel Tab) 100 mg PO BID JAXON Stop: 03/12/21 20:59 Last Admin: 02/10/21 20:30 Dose: 100 mg Documented by: [id number] Mirabegron (Mirabegron Er 25 Mg Tab) 25 mg PO HS JAXON Stop: 03/12/21 20:59 Last Admin: 02/10/21 20:31 Dose: 25 mg Documented by: [id number] Miscellaneous (*Pitavistatin*Order Awaiting Action) 1 ea N/A QS JAXON Stop: 03/11/21 04:44 Last Admin: 02/11/21 01:36 Dose: Not Given Documented by: [id number] Admin: 02/10/21 15:41 Dose: Not Given Documented by: [id number] Admin: 02/10/21 07:58 Dose: Not Given Documented by: [id number] Admin: 02/09/21 23:57 Dose: Not Given Documented by: [id number] Admin: 02/09/21 15:18 Dose: Not Given Documented by: [id number] Admin: 02/09/21 09:06 Dose: Not Given Documented by: [id number] Admin: 02/09/21 06:24 Dose: Not Given Documented by: [id number] Multivitamins (Multivitamin Tab) 1 tab PO DAILY JAXON Stop: 03/11/21 08:59 Last Admin: 02/10/21 07:59 Dose: 1 tab Documented by: [id number] Admin: 02/09/21 09:26 Dose: 1 tab Documented by: [id number] Pantoprazole Sodium (Pantoprazole 40 Mg Tab) 40 mg PO QAM JAXON; Protocol Stop: 03/11/21 08:59 Last Admin: 02/10/21 07:59 Dose: 40 mg Documented by: [id number] Admin: 02/09/21 09:25 Dose: 40 mg Documented by: [id number] Pregabalin (Pregabalin 100 Mg Cap) 100 mg PO TID JAXON Stop: 03/11/21 08:59 Last Admin: 02/10/21 20:30 Dose: 100 mg Documented by: [id number] Admin: 02/10/21 15:41 Dose: 100 mg Documented by: [id number] Admin: 02/10/21 08:02 Dose: 100 mg Documented by: [id number] Admin: 02/09/21 21:32 Dose: 100 mg Documented by: [id number] Admin: 02/09/21 13:45 Dose: 100 mg Documented by: [id number] Admin: 02/09/21 09:06 Dose: 100 mg Documented by: [id number] Rivaroxaban (Rivaroxaban 15 Mg Tab) 15 mg PO QDD JAXON; Protocol Stop: 03/11/21 16:29 Last Admin: 02/10/21 16:22 Dose: 15 mg Documented by: [id number] Admin: 02/09/21 18:26 Dose: 15 mg Documented by: [id number] Vitamin D (Cholecalciferol 1,000 Units 25 Mcg Tab) 1,000 units PO QAM JAXON Stop: 03/11/21 08:59 Last Admin: 02/10/21 07:59 Dose: 1,000 units Documented by: [id number] Admin: 02/09/21 09:26 Dose: 1,000 units Documented by: [id number] Discontinued Medications Sodium Chloride (Nss 1000ml) 1,000 mls @ 200 mls/hr IV .Q5H JAXON Stop: 03/10/21 20:14 Last Admin: 02/09/21 02:58 Dose: Not Given Documented by: [id number] Infusion: 02/09/21 01:11 Dose: 0 mls/hr Documented by: [id number] Admin: 02/08/21 20:11 Dose: 200 mls/hr Documented by: [id number] Ceftriaxone Sodium (Rocephin) 2,000 mg in 70 mls @ 140 mls/hr IV NOW STA Stop: 02/08/21 21:49 Last Infusion: 02/08/21 22:49 Dose: 0 mls/hr Documented by: [id number] Admin: 02/08/21 21:46 Dose: 140 mls/hr Documented by: [id number] Acetaminophen (Ofirmev) 1,000 mg in 100 mls @ 400 mls/hr IV NOW STA Stop: 02/08/21 22:18 Last Infusion: 02/08/21 23:24 Dose: 0 mls/hr Documented by: [id number] Admin: 02/08/21 22:39 Dose: 400 mls/hr Documented by: [id number] Sodium Chloride (Nss 1000ml) 1,000 mls @ 60 mls/hr IV .[id number] JAXON Stop: 02/09/21 21:24 Last Infusion: 02/09/21 23:11 Dose: 0 mls/hr Documented by: [id number] Admin: 02/09/21 06:23 Dose: 60 mls/hr Documented by: [id number] Ioversol (Optiray 320 100ml) 93 ml IV ONCE ONE Stop: 02/08/21 21:30 Last Admin: 02/08/21 21:30 Dose: 93 ml Documented by: [id number] Metoprolol Succinate (Metoprolol Succ 50mg Ext Rel Tab) 50 mg PO BID JAXON Stop: 03/11/21 08:59 Last Admin: 02/09/21 09:03 Dose: 50 mg Documented by: [id number] Metoprolol Succinate (Metoprolol Succ 50mg Ext Rel Tab) 150 mg PO NOW STA Stop: 02/09/21 10:53 Last Admin: 02/09/21 11:52 Dose: Not Given Documented by: [id number] Metoprolol Succinate (Metoprolol Succ 50mg Ext Rel Tab) 50 mg PO BID [facility] Stop: 03/11/21 20:59 Last Admin: 02/10/21 07:58 Dose: 50 mg Documented by: [id number] Admin: 02/09/21 21:32 Dose: 50 mg Documented by: [id number] Mirabegron (Mirabegron Er 25 Mg Tab) 25 mg PO DAILY JAXON Stop: 03/11/21 08:59 Last Admin: 02/09/21 09:25 Dose: 25 mg Documented by: [id number] Ondansetron HCl (Ondansetron Inj 2 Mg/Ml 2 Ml Vial) 4 mg IV NOW STA Stop: 02/08/21 22:21 Last Admin: 02/08/21 22:34 Dose: 4 mg Documented by: [id number] Medical Decision Making Differential Diagnosis Differential: Gastroenteritis, Food Borne, Esophageal Perforation, , Electrolyte Abnormality, Dehydration, Intraabdominal Infection, UTI/Pyelonephritis, Bowel Obstruction, Biliary Pathology, amongst other pathology entertained. Medical Records Attestation: I reviewed the patient's medical records. Home Medications Current Medication List: was personally reviewed by me Laboratory Data Attestation: I reviewed the patient's lab results. Result diagrams: 02/10/21 06:53 02/10/21 06:53 Lab Results 02/08/21 02/08/21 02/08/21 Range/Units 20:05 20:05 20:43 WBC 11.48 H (4.8-10.8) K/uL RBC 4.61 (4.2-5.4) M/uL Hgb 15.1 (12.0-16.0) g/dL Hct 45.3 (37-47) % MCV 98.3 (80-100) fL MCH 32.8 (25-34) pg MCHC 33.3 (32-36) g/dL RDW Std Deviation 45.0 (36.4-46.3) fL RDW Coeff of Rudy 12.6 (11.5-14.5) % Plt Count 252 (130-400) K/uL MPV 12.7 H (7.4-10.4) fL Immature Gran % (Auto) 0.8 % Neut % (Auto) 64.0 % Lymph % (Auto) 26.5 % [place] % (Auto) 8.4 % Eos % (Auto) 0.1 % Baso % (Auto) 0.2 % Neut # (Auto) 7.35 H (1.4-6.5) K/uL Lymph # (Auto) 3.04 (1.2-3.4) K/uL [place] # (Auto) 0.97 H (0.11-0.59) K/uL Eos # (Auto) 0.01 (0-0.5) K/uL Baso # (Auto) 0.02 (0-0.2) K/uL Immature Gran # (Auto) 0.09 H (0.00-0.02) K/uL Sodium 142 (136-145) mmol/L Potassium 3.9 (3.5-5.1) mmol/L Chloride 109 H (98-107) mmol/L Carbon Dioxide 23 (21-32) mmol/L Anion Gap 10.0 (3-11) BUN 17 (7-18) mg/dl Creatinine 1.33 H (0.6-1.2) mg/dl Est Cr Clr Drug Dosing 35.5 ml/min Est GFR ( Amer) 42.1 ml/min Est GFR (Non-Af Amer) 36.4 ml/min BUN/Creatinine Ratio 13.0 (10-20) Glucose 135 H (70-99) mg/dl Calcium 10.4 H (8.5-10.1) mg/dl Magnesium 2.0 (1.8-2.4) mg/dl Total Bilirubin 0.8 (0.2-1) mg/dl AST 21 (15-37) U/L ALT 20 (12-78) U/L Alkaline Phosphatase 122 H (45-117) U/L Troponin I < 0.015 (0-0.045) ng/ml NT-Pro-B Natriuret Pep 6474 H (0-1800) pg/ml Total Protein 8.5 H (6.4-8.2) gm/dl Albumin 4.1 (3.4-5.0) gm/dl Globulin 4.4 H (2.5-4.0) gm/dl Albumin/Globulin Ratio 0.9 (0.9-2) Lipase 237 (73-393) U/L TSH 3.370 (0.300-4.500) uIu/ml Urine Color Yellow Urine Appearance Clear (Clear) Urine pH 5.5 (4.5-7.5) Ur Specific Fletcher 1.019 (1.000-1.030) Urine Protein Negative (Negative) Urine Glucose (UA) Negative (Negative) Urine Ketones 1+ H (Negative) Urine Blood 1+ H (Negative) Urine Nitrite Negative (Negative) Urine Bilirubin Negative (Negative) Urine Urobilinogen Negative (Negative) Ur Leukocyte Esterase 1+ H (Negative) Urine WBC (Auto) 10-30 H (0-5) /hpf Urine RBC (Auto) 5-10 H (0-4) /hpf U Hyaline Cast (Auto) 10-30 H (0-5) /lpf U Epithel Cells (Auto) 0-5 (0-5) /lpf Urine Bacteria (Auto) 2+ H (Negative) COVID-19 Eval Order SARS-CoV-2 (PCR) (Negative) 02/08/21 02/08/21 Range/Units 22:37 22:37 WBC (4.8-10.8) K/uL RBC (4.2-5.4) M/uL Hgb (12.0-16.0) g/dL Hct (37-47) % MCV (80-100) fL MCH (25-34) pg MCHC (32-36) g/dL RDW Std Deviation (36.4-46.3) fL RDW Coeff of Rudy (11.5-14.5) % Plt Count (130-400) K/uL MPV (7.4-10.4) fL Immature Gran % (Auto) % Neut % (Auto) % Lymph % (Auto) % [place] % (Auto) % Eos % (Auto) % Baso % (Auto) % Neut # (Auto) (1.4-6.5) K/uL Lymph # (Auto) (1.2-3.4) K/uL [place]y # (Auto) (0.11-0.59) K/uL Eos # (Auto) (0-0.5) K/uL Baso # (Auto) (0-0.2) K/uL Immature Gran # (Auto) (0.00-0.02) K/uL Sodium (136-145) mmol/L Potassium (3.5-5.1) mmol/L Chloride (98-107) mmol/L Carbon Dioxide (21-32) mmol/L Anion Gap (3-11) BUN (7-18) mg/dl Creatinine (0.6-1.2) mg/dl Est Cr Clr Drug Dosing ml/min Est GFR ( Amer) ml/min Est GFR (Non-Af Amer) ml/min BUN/Creatinine Ratio (10-20) Glucose (70-99) mg/dl Calcium (8.5-10.1) mg/dl Magnesium (1.8-2.4) mg/dl Total Bilirubin (0.2-1) mg/dl AST (15-37) U/L ALT (12-78) U/L Alkaline Phosphatase (45-117) U/L Troponin I (0-0.045) ng/ml NT-Pro-B Natriuret Pep (0-1800) pg/ml Total Protein (6.4-8.2) gm/dl Albumin (3.4-5.0) gm/dl Globulin (2.5-4.0) gm/dl Albumin/Globulin Ratio (0.9-2) Lipase (73-393) U/L TSH (0.300-4.500) uIu/ml Urine Color Urine Appearance (Clear) Urine pH (4.5-7.5) Ur Specific Fletcher (1.000-1.030) Urine Protein (Negative) Urine Glucose (UA) (Negative) Urine Ketones (Negative) Urine Blood (Negative) Urine Nitrite (Negative) Urine Bilirubin (Negative) Urine Urobilinogen (Negative) Ur Leukocyte Esterase (Negative) Urine WBC (Auto) (0-5) /hpf Urine RBC (Auto) (0-4) /hpf U Hyaline Cast (Auto) (0-5) /lpf U Epithel Cells (Auto) (0-5) /lpf Urine Bacteria (Auto) (Negative) COVID-19 Eval Order Covid19 at [facility] SARS-CoV-2 (PCR) NEGATIVE (Negative) Imaging Data Radiologist's Impression: Chest X-Ray 02/08/21 20:02 XR chest 1V portable HISTORY: 85 years-old Female sob acute shortness of breath COMPARISON: Chest radiograph 08/01/2020 TECHNIQUE: Portable AP view of the chest FINDINGS: Cardiac silhouette is enlarged. Calcified plaque the thoracic aorta. Unchanged appearance of the cardiac silhouette. No pneumothorax. Unchanged left lung base opacities suggestive of atelectasis. Unchanged blunting of the costophrenic angles with chronic interstitial coarsening. Degenerative changes of the shoulders and spine. The patient is rotated towards the left. IMPRESSION: Cardiomegaly without acute process. ACT 112: Negative or not required by law. The above report was generated using voice recognition software. It may contain grammatical, syntax or spelling errors. Electronically signed by: Juan Manuel Arrieta M.D. 02/08/2021 8:[address] abdomen and pelvis with contrast: Small focus of gas in the urinary bladder is nonspecific and may be iatrogenic or related to infection. The solid organs are within normal limits. Cholecystectomy. Moderate hiatal hernia. No obstruction. No fracture. Radiologist: Jenniffer Urena MD ECG Data Attestation: I personally reviewed and interpreted this ECG as follows: Indication: + nausea Rate (beats per minute): 104 Rhythm: + atrial fibrillation ECG [place]: + Normal ECG ST segments: + Nonspecific ST abnormalities MDM Narrative This is an 85-year-old female who presents with multiple complaints including nausea, shortness of breath, atrial fibrillation. Patient mildly ill-appearing at bedside. Patient does have history of atrial fibrillation and is anticoagulated. was concerned for dehydration, intermittent confusion, and possible UTI as patient has had the symptoms with this previously. Labs are drawn and sent, chest x-ray performed. Given those are reassuring and patient continued to complain of nausea, CT of the abdomen pelvis was also performed which was reassuring. Patient's UA was abnormal, patient covered with IV antibiotics and urine culture sent. No evidence of pyelonephritis or ureterolithiasis seen on CT. Patient was cautiously rehydrated here with IV fluids. Patient remained hemodynamically stable throughout, she did remain in her chronic A. fib. While initially patient had RVR, her rate improved with IV rehydration. Patient not given any additional medications. No evidence of bacteremia/sepsis, no evidence of congestive heart failure. Patient has been made aware of all results, verbalized understanding was in agreement with plan. An order was placed for continuous cardiac monitoring. The monitor shows a rate of _80_ with atrial fibrillation_ rhythm. Impression & Plan Dyspnea, Nausea, Atrial fibrillation Discharge Plan Visit Data Chief Complaint: Shortness of Breath/Dyspnea Stated Complaint: SHORTNESS OF BREATH ED Provider: Effie Hawthorne Discharge Problem: Dyspnea, Nausea, Atrial fibrillation Patient Disposition: Admitted As Inpatient Condition: Good Discharge Instructions Interventions: ED Discharge Assessment Last Done: 02/09/21 03:39 Discharge Problem: Dyspnea Qualifiers: Dyspnea type: shortness of breath Qualified Code(s): R06.02 - Shortness of brenda th Atrial fibrillation Qualifiers: Atrial fibrillation type: unspecified chronic Qualified Code(s): I48.20 - Ch ronic atrial fibrillation, unspecified
[2021-02-08] MEDS: SODIUM CHLORIDE 0.9% 1000ML 1,000 ML IV SCH (20:11)
[2021-02-08 20:17] LABS: Basophils # (auto) 0.02 K/uL (0-0.2); Basophils % (auto) 0.2 %; Eosinophils # (auto) 0.01 K/uL (0-0.5); Eosinophils % (auto) 0.1 %; Hematocrit (blood only) 45.3 % (37-47); Hemoglobin 15.1 g/dL (12.0-16.0); Immature Granulocytes # (auto) 0.09 K/uL (0.00-0.02); Immature Granulocytes % (auto) 0.8 %; Lymphocytes # (auto) 3.04 K/uL (1.2-3.4); Lymphocytes % (auto) 26.5 %; Mean Corpuscular Hemoglobin 32.8 pg (25-34); Mean Corpuscular Hgb Conc 33.3 g/dL (32-36); Mean Corpuscular Volume 98.3 fL (80-100); Mean Platelet Volume 12.7 fL (7.4-10.4); Monocytes # (auto) 0.97 K/uL (0.11-0.59); Monocytes % (auto) 8.4 %; Neutrophils # (auto) 7.35 K/uL (1.4-6.5); Platelet Count 252 K/uL (130-400); RDW Coefficient of Variation 12.6 % (11.5-14.5); Red Blood Count 4.61 M/uL (4.2-5.4); White Blood Count 11.48 K/uL (4.8-10.8)
--- NOTE | 2021-02-08 20:32 | XRay Report ---
XR chest 1V portable HISTORY: 85 years-old Female sob acute shortness of breath COMPARISON: Chest radiograph 08/01/2020 TECHNIQUE: Portable AP view of the chest FINDINGS: Cardiac silhouette is enlarged. Calcified plaque the thoracic aorta. Unchanged appearance of the card iac silhouette. No pneumothorax. Unchanged left lung base opacities suggestive of atelectasis. Unchan ged blunting of the costophrenic angles with chronic interstitial coarsening. Degenerative changes of the shoulders and spine. The patient is rotated towards the left. IMPRESSION: Cardiomegaly without acute process. ACT 112: Negative or not required by law. The above report was generated using voice recognition software. It may contain grammatical, syntax o r spelling errors. Electronically signed by: Juan Manuel Arrieta M.D. 02/08/2021 8:31 PM
[2021-02-08 20:36] LABS: Alanine Aminotransferase 20 U/L (12-78); Albumin Level 4.1 gm/dl (3.4-5.0); Aspartate Aminotransferase 21 U/L (15-37); Blood Urea Nitrogen 17 mg/dl (7-18); Calcium 10.4 mg/dl (8.5-10.1); Carbon Dioxide 23 mmol/L (21-32); Chloride 109 mmol/L (98-107); Creatinine Clr Calc Pharmacy 35.5 ml/min; Est GFR (African American) 42.1 ml/min; Est GFR (Non-African American) 36.4 ml/min; Glucose 135 mg/dl (70-99); Lipase 237 U/L (73-393); Potassium 3.9 mmol/L (3.5-5.1); Sodium 142 mmol/L (136-145)
[2021-02-08 20:47] LABS: Albumin Globulin Ratio 0.9 (0.9-2); Alkaline Phosphatase 122 U/L (45-117); Bilirubin,Total 0.8 mg/dl (0.2-1); Globulin 4.4 gm/dl (2.5-4.0); NT Pro B Type Natriuretic Pept 6474 pg/ml (0-1800); Total Protein 8.5 gm/dl (6.4-8.2); Troponin I < 0.015 ng/ml (0-0.045)
[2021-02-08 21:05] LABS: Appearance Urine Clear (Clear); Bacteria Urine Automated 2+ (Negative); Bilirubin Urine Negative (Negative); Blood Urine 1+ (Negative); Color Urine Yellow; Epithelial Cell Urine Auto 0-5 /lpf (0-5); Glucose Urine UA Negative (Negative); Ketones Urine 1+ (Negative); Leukocyte Esterase Urine 1+ (Negative); Nitrite Urine Negative (Negative); Protein Urine Negative (Negative); Specific Gravity Urine 1.019 (1.000-1.030); Urobilinogen Urine Negative (Negative); pH Urine 5.5 (4.5-7.5)
[2021-02-08] MEDS ORDERED: cefTRIAXone SODIUM 2,000 MG/70 ML BAG IV STA (21:20)
[2021-02-08] MEDS ORDERED: OPTIRAY 320 100ml IV ONE (21:29)
[2021-02-08] MEDS ORDERED: ACETAMINOPHEN 1,000 MG/100 ML VIAL IV STA (22:04)
[2021-02-08] MEDS ORDERED: ONDANSETRON INJ 2 MG/ML 2 ML VIAL IV STA (22:20)
--- NOTE | 2021-02-08 23:05 | History & Physical Report ---
Date of Service February 08, 2021 Assessment & Plan (1) Sepsis due to urinary tract infection: Plan: Sepsis due to urinary tract infection- Zosyn 3.375 mg IV every 8 hours Follow urine culture and sensitivity NSS at 60 mils per hour x1 L Zofran 4 mg IV every 6 hours as needed Reduce antihypertensives as noted below (2) Acute kidney injury superimposed on chronic kidney disease: Plan: Creatinine 1.33 upon admission, with base 1.04 Hydrate with IV fluids as noted, and recheck laboratories in a.m. Treat UTI as noted (3) Atrial fibrillation, permanent: Plan: Permanent atrial fibrillation/hypertension/PAD- Due to low blood pressure will hold furosemide, losartan, diltiazem and spironolactone. We'll reduce metoprolol succinate from 200 mg every morning to 50 mg p.o. twice daily with hold parameters We'll resume as treatment for sepsis improves condition Continue Xarelto (4) Hypertension: Plan: See above (5) PAD (peripheral artery disease): Plan: See above (6) Dyslipidemia: Plan: Patient is on pitavastatin as an outpatient (7) Gastroesophageal reflux disease: Plan: Continue dexlansoprazole/pantoprazole (8) Peripheral neuropathy: Plan: Continue pregabalin History of Present Illness Chief Complaint: The patient presents to the emergency department with 3 days of nausea, shortness of breath and significant fatigue. Primary Care Provider: Mary Jane Muller DO The patient is a 85-year-old female with a past putting per A. fib, hyper tension, atrial fib with RVR, PAD, aortic regurgitation, thoracic ascending aortic aneurysm, recurrent UTI, dyslipidemia, CKD, gait disturbance, urinary urge incontinence, GERD, shots he is very, hyperparathyroidism, peripheral neuropathy and vitamin D deficiency. She presents with 3 days of generalized fatigue, nausea and shortness of breath. She reports overall poor intake over the past 24 hours, but did take her medications. She denies any recent travels or sick exposures. Allergies Allergy/AdvReac Type Severity Reaction Status Date / Time atorvastatin AdvReac Intermediate liver Verified 02/08/21 19:54 enzymes elevate lisinopril AdvReac Unknown Verified 02/08/21 19:54 Home Medications Medication Instructions Recorded Confirmed Type cholecalciferol (vitamin D3) 25 1,000 units PO QAM cap 02/20/19 02/08/21 History mcg (1,000 unit) capsule multivitamin (Multiple Vitamins) 1 tab PO DAILY 02/20/19 02/08/21 History metoprolol succinate 200 mg 200 mg PO DAILY #90 tab 02/24/20 02/08/21 Rx tablet,extended release 24 hr polyethylene glycol 3350 17 gram 17 g PO TID PRN #30 ea 05/04/20 02/08/21 Rx oral powder packet (Miralax) dexlansoprazole 60 mg 60 mg PO QAM #90 cap 07/01/20 02/08/21 Rx capsule,biphase delayed release furosemide 20 mg tablet (Lasix) 20 mg PO BID PRN 08/01/20 02/08/21 History diltiazem HCl 90 mg 90 mg PO BID #180 cap 09/08/20 02/08/21 Rx capsule,extended release 12 hr losartan 25 mg tablet 25 mg PO QAM #90 tab 09/08/20 02/08/21 Rx mirabegron 25 mg tablet,extended 25 mg PO DAILY #90 tab 11/23/20 02/08/21 Rx release 24 hr nitrofurantoin macrocrystal 50 mg 50 mg PO HS #30 cap 01/03/21 02/08/21 Rx capsule (Macrodantin) wdbuyxduom-avhhoqkwcailo-mzhltkhe 1 tab PO BID PRN #30 tab 01/06/21 02/08/21 Rx 50 mg-325 mg-40 mg tablet rivaroxaban 20 mg tablet (Xarelto) 20 mg PO QPM #30 tab 01/18/21 02/08/21 Rx spironolactone 25 mg tablet 25 mg PO DAILY #90 tab 01/18/21 02/08/21 Rx pregabalin 100 mg capsule 100 mg PO TID #90 cap 01/28/21 02/08/21 Rx pitavastatin calcium 4 mg tablet 4 mg PO DAILYBB 02/08/21 02/08/21 History ([place]) Past Med/Surg History Medical History Altered mental status Aortic regurgitation Arthritis of both feet Atrial fibrillation Atrial fibrillation with rapid ventricular response Chronic headache disorder Degenerative arthritis of knee, bilateral Gastroenteritis High cholesterol History of deep venous thrombosis Hypertension Hypokalemia Left kidney mass Followed [facility] Neuropathy Osteoarthritis Osteoporosis PAD (peripheral artery disease) Popliteal cyst Posterior tibial tendon dysfunction Thoracic ascending aortic aneurysm Venous insufficiency Surgical History History of back surgery History of cholecystectomy History of hysterectomy History of tubal ligation Family History Mother Breast cancer Hypertension Coronary heart disease Father Coronary heart disease Myocardial infarction Sister Breast cancer Colorectal cancer Ovarian cancer Denies family history of Prostate cancer Social History Smoking Status: Never smoker Second Hand Exposure: No; Hx Alcohol Use: Yes Alcohol type: wine Hx Substance Use: No Preferred Language: Danish Communication Ability: Effective Visual Impairment: Limited Hearing Ability: Normal Pacu Nurse Required: No Beliefs That Will Affect Care: None marital status: Current Living Situation: Spouse Current Living Situation Comment: verbalizes he is unable to take care of pt. current occupational status: retired current occupation: part-time How many Children do You have: 3 Feels Safe at Home: Yes Childhood Exposure to Second-Hand Smoke: No caffeine: No Dental Care, Regularly: Yes Physical Activity Frequency: Does not Exercise Seatbelt Use: always Sunscreen Use: Yes Assistive Devices: Walker Review of Systems Review of Systems: The patient denies chest pain, palpitations, lower extremity swelling, sore throat, fevers, chills, sweats, vomiting, diarrhea , constipation, abdominal pain, pelvic pain, blood in urine or stool, dysuria, urinary frequency or urgency, lightheadedness, dizziness, headache, memory loss, loss of consciousness, rash, abnormal bruising or bleeding, focal weakness, numbness or tingling in arms or legs, generalized arthralgias or myalgias, back or neck pain, or night sweats. The review of systems is otherwise negative other than for that already noted above, and at least 10 systems have been reviewed. Physical Exam Physical Exam: The patient is awake, alert and oriented 3, well developed and well nourished, normocephalic and atraumatic, lying in bed and in no acute distress. HEENT--PERRL, EOMI, mucous membranes and oropharynx dry. Neck--supple. No JVD. No bruits. Thyroid normal, trachea midline, no adenopathy. Heart--normal S1 and S2. No murmurs, rubs or gallops. Lungs--clear bilaterally, no respiratory distress, no accessory muscle use. Abdomen--normal bowel sounds and soft. Nontender. Nondistended Extremities--no cyanosis or clubbing. No edema. Dermatologic--normal skin turgor, normal color, no abnormal lymph nodes, no rash. Neurologic--cranial nerves II through XII grossly intact. Rheumatologic--normal range of motion. Psychiatric--normal affect. Results & Data Results & Data ([facility]) Vital Signs (Past 12 Hours) Vital Signs Temp Pulse Resp BP Pulse Ox 02/08/21 22:48 92 H 18 136/86 97 02/08/21 22:01 110 H 18 99/71 L 96 02/08/21 21:01 93 H 20 131/95 95 02/08/21 20:31 116 H 22 154/104 H 98 02/08/21 20:04 98 02/08/21 20:01 111 H 22 160/103 H 98 02/08/21 19:56 124 H 26 H 172/74 H 97 02/08/21 18:34 97.5 F L 111 H 16 141/79 H 96 Laboratory Results Laboratory Results WBC 11.48 K/uL (4.8-10.8) H 02/08/21 20:05 RBC 4.61 M/uL (4.2-5.4) 02/08/21 20:05 Hgb 15.1 g/dL (12.0-16.0) 02/08/21 20:05 Hct 45.3 % (37-47) 02/08/21 20:05 MCV 98.3 fL (80-100) 02/08/21 20:05 MCH 32.8 pg (25-34) 02/08/21 20:05 MCHC 33.3 g/dL (32-36) 02/08/21 20:05 RDW Std Deviation 45.0 fL (36.4-46.3) 02/08/21 20:05 RDW Coeff of Rudy 12.6 % (11.5-14.5) 02/08/21 20:05 Plt Count 252 K/uL (130-400) 02/08/21 20:05 MPV 12.7 fL (7.4-10.4) H 02/08/21 20:05 Immature Gran % (Auto) 0.8 % 02/08/21 20:05 Neut % (Auto) 64.0 % 02/08/21 20:05 Lymph % (Auto) 26.5 % 02/08/21 20:05 [place] % (Auto) 8.4 % 02/08/21 20:05 Eos % (Auto) 0.1 % 02/08/21 20:05 Baso % (Auto) 0.2 % 02/08/21 20:05 Neut # (Auto) 7.35 K/uL (1.4-6.5) H 02/08/21 20:05 Lymph # (Auto) 3.04 K/uL (1.2-3.4) 02/08/21 20:05 [place] # (Auto) 0.97 K/uL (0.11-0.59) H 02/08/21 20:05 Eos # (Auto) 0.01 K/uL (0-0.5) 02/08/21 20:05 Baso # (Auto) 0.02 K/uL (0-0.2) 02/08/21 20:05 Immature Gran # (Auto) 0.09 K/uL (0.00-0.02) H 02/08/21 20:05 Sodium 142 mmol/L (136-145) 02/08/21 20:05 Potassium 3.9 mmol/L (3.5-5.1) 02/08/21 20:05 Chloride 109 mmol/L (98-107) H 02/08/21 20:05 Carbon Dioxide 23 mmol/L (21-32) 02/08/21 20:05 Anion Gap 10.0 (3-11) 02/08/21 20:05 BUN 17 mg/dl (7-18) 02/08/21 20:05 Creatinine 1.33 mg/dl (0.6-1.2) H 02/08/21 20:05 Est Cr Clr Drug Dosing 35.5 ml/min 02/08/21 20:05 Est GFR ( Amer) 42.1 ml/min 02/08/21 20:05 Est GFR (Non-Af Amer) 36.4 ml/min 02/08/21 20:05 BUN/Creatinine Ratio 13.0 (10-20) 02/08/21 20:05 Glucose 135 mg/dl (70-99) H 02/08/21 20:05 Calcium 10.4 mg/dl (8.5-10.1) H 02/08/21 20:05 Magnesium 2.0 mg/dl (1.8-2.4) 02/08/21 20:05 Total Bilirubin 0.8 mg/dl (0.2-1) 02/08/21 20:05 AST 21 U/L (15-37) 02/08/21 20:05 ALT 20 U/L (12-78) 02/08/21 20:05 Alkaline Phosphatase 122 U/L (45-117) H 02/08/21 20:05 Troponin I < 0.015 ng/ml (0-0.045) 02/08/21 20:05 NT-Pro-B Natriuret Pep 6474 pg/ml (0-1800) H 02/08/21 20:05 Total Protein 8.5 gm/dl (6.4-8.2) H 02/08/21 20:05 Albumin 4.1 gm/dl (3.4-5.0) 02/08/21 20:05 Globulin 4.4 gm/dl (2.5-4.0) H 02/08/21 20:05 Albumin/Globulin Ratio 0.9 (0.9-2) 02/08/21 20:05 Lipase 237 U/L (73-393) 02/08/21 20:05 TSH 3.370 uIu/ml (0.300-4.500) 02/08/21 20:05 Urine Color Yellow 02/08/21:43 Urine Appearance Clear (Clear) 02/08/21 20:43 Urine pH 5.5 (4.5-7.5) 02/08/21 20:43 Ur Specific [place] 1.019 (1.000-1.030) 02/08/21 20:43 Urine Protein Negative (Negative) 02/08/21 20:43 Urine Glucose (UA) Negative (Negative) 02/08/21 20:43 Urine Ketones 1+ (Negative) H 02/08/21 20:43 Urine Blood 1+ (Negative) H 02/08/21 20:43 Urine Nitrite Negative (Negative) 02/08/21 20:43 Urine Bilirubin Negative (Negative) 02/08/21 20:43 Urine Urobilinogen Negative (Negative) 02/08/21 20:43 Ur Leukocyte Esterase 1+ (Negative) H 02/08/21 20:43 Urine WBC (Auto) 10-30 /hpf (0-5) H 02/08/21 20:43 Urine RBC (Auto) 5-10 /hpf (0-4) H 02/08/21 20:43 U Hyaline Cast (Auto) 10-30 /lpf (0-5) H 02/08/21 20:43 U Epithel Cells (Auto) 0-5 /lpf (0-5) 02/08/21 20:43 Urine Bacteria (Auto) 2+ (Negative) H 02/08/21 20:43 COVID-19 Eval Order Covid19 at [facility] 02/08/21 22:37 SARS-CoV-2 (PCR) NEGATIVE (Negative) 02/08/21 22:37 Impressions Chest X-Ray 02/08/21 20:02 XR chest 1V portable HISTORY: 85 years-old Female sob acute shortness of breath COMPARISON: Chest radiograph 08/01/2020 TECHNIQUE: Portable AP view of the chest FINDINGS: Cardiac silhouette is enlarged. Calcified plaque the thoracic aorta. Unchanged appearance of the cardiac silhouette. No pneumothorax. Unchanged left lung base opacities suggestive of atelectasis. Unchanged blunting of the costophrenic angles with chronic interstitial coarsening. Degenerative changes of the shoulders and spine. The patient is rotated towards the left. IMPRESSION: Cardiomegaly without acute process. ACT 112: Negative or not required by law. The above report was generated using voice recognition software. It may contain grammatical, syntax or spelling errors. Electronically signed by: Juan Manuel Arrieta M.D. 02/08/2021 8:31 PM Diagnostic Findings [facility] Patient: SARA NOEL (Female) : 35 Status: ER Date: 02/08/21 21:41 Room #: History: nausea Slices: 647 Priors: Tech: Jluis Andrews @ [phone] Exams: CT ABDOMEN & PELVIS With Contrast Contrast: IV Amt: 93ML OPTIRAY 320 Accession Numbers: [id number] Referring Physician: MARY JANE MULLER Preliminary Findings Only See Final Report For Complete Findings CT ABDOMEN & PELVIS With Contrast: Small focus of gas in the urinary bladder is nonspecific and may be iatrogenic or related to infection. The solid organs are within normal limits. Cholecystectomy. Moderate hiatal hernia. No obstruction. No fracture. Radiologist: Jenniffer Urena MD Study ready at 21:45 and initial results transmitted at 22:05 *This report constitutes a preliminary interpretation only. Non-acute findings felt to be unrelated to the clinical presentation may not be discussed in this report. The study will be interpreted and a final report will be generated by the local Radiologist the following shift. To reach the hospital radiology department call [phone]. If a discrepancy is found between the preliminary and final interpretations of this study, please notify us via our Client Portal at [email or web address] [email or web address].You can also fax this report with a description of the discrepancy, or include the final report, to our daytime fax number [phone].If faxing, please indicate the severity of discrepancy using one of the following categories: [ ] 1 - Agree/Informational [ ] 2 - Unlikely to Affect Management [ ] 3 - Possible Eventual Change of Management [ ] 4 - Probable Immediate Change of Management For all other patient related information, please fax us at [phone]. [id number] Code Status & VTE Plan Code Status Full code VTE Prophylaxis Plan VTE Prophylaxis will be ordered: Yes PG Care Time/CCT Total # of Minutes Spent Total Time Spent with Patient: Total time spent is greater than 50% in coordinat ion of care (as documented) at patient's floor/unit and/or counseling patient: Coding Level of Care Code 05304 Initial Inpt Care Lvl 3 Diagnoses Atrial fibrillation, permanent I48.21 Sepsis due to urinary tract infection A41.9; N39.0 Hypertension I10 Hypertension type: essential hypertension PAD (peripheral artery disease) I73.9 Dyslipidemia E78.5 Acute kidney injury superimposed on chronic kidney disease N17.9; N18.9 Gastroesophageal reflux disease K21.9 Peripheral neuropathy G62.9 (1) Hypertension Hypertension type: essential hypertension Qualified Code(s): I10 - Essential (primary) hypertension
[2021-02-09] MEDS: SODIUM CHLORIDE 0.9% 1000ML 1,000 ML IV SCH (02:58)
[2021-02-09] MEDS ORDERED: POLYETHYLENE (MIRALAX) 17 GM PACK PO PRN (04:28)
[2021-02-09] MEDS ORDERED: ACETAMINOPHEN 325 MG TAB PO PRN (04:28)
[2021-02-09] MEDS ORDERED: ONDANSETRON INJ 2 MG/ML 2 ML VIAL IV PRN (04:28)
[2021-02-09] MEDS ORDERED: NITROGLYCERIN SL 0.4 MG/TAB TAB SL PRN (04:28)
[2021-02-09] MEDS ORDERED: SODIUM CHLORIDE 0.9% 1000ML 1,000 ML IV SCH (04:45)
--- NOTE | 2021-02-09 07:22 | CT Scan Report ---
CT abd pelvis IV con only CLINICAL INDICATION: MN ^CTR A12B ^nausea. TECHNIQUE: Helical axial images of the abdomen and pelvis were obtained and displayed at 5 and 1 mm i ntervals. Automated dose lowering techniques and/or adjustment according to patient size were utilize d for this exam. This exam was performed with intravenous contrast. COMPARISON: None available at the time of this dictation. FINDINGS: Lower chest: Cardiomegaly with biatrial enlargement is partially visualized. Liver: Focal fatty changes seen in the household ligament. Gallbladder and biliary tree: Patient is status post cholecystectomy. No intra- or extrahepatic bilia ry ductal dilation. Pancreas: Unremarkable, no focal lesions. Spleen: Splenule is incidentally noted. Adrenals: Unremarkable. Kidneys and ureters: Unremarkable. Bladder: Limited evaluation due to underdistention. There is a tiny focus of air in the bladder. Bowel: There is a moderate hiatal hernia. There is significant redundancy of the sigmoid colon with d iverticulosis noted but no evidence of diverticulitis. Lymph nodes Retroperitoneal: Unremarkable. Mesenteric: Unremarkable. Pelvic: Unremarkable. Reproductive organs: Patient is status post hysterectomy. Peritoneum: Normal Vessels: Atherosclerotic calcifications are seen. Abdominal wall: A tiny umbilical helical hernia is seen. Bones: Posterior fixation hardware is seen in the lumbosacral spine. IMPRESSION: 1. No evidence of acute abnormality. In particular, no evidence of bowel obstruction. 2. Small focus of gas in the urinary bladder. Recommend correlation with recent instrumentation or u rinalysis to rule out cystitis. ACT 112: Negative or not required by law. Electronically signed by: Saurabh Marquez M.D. 02/09/2021 7:21 AM
[2021-02-09] MEDS ORDERED: METOPROLOL SUCC 50MG EXT REL TAB PO SCH ×2 (09:00→21:00)
[2021-02-09] MEDS: PREGABALIN 100 MG CAP PO SCH ×3 (09:06→21:32)
[2021-02-09] MEDS: MIRABEGRON ER 25 MG TAB PO SCH (09:25)
[2021-02-09] MEDS: PANTOprazole 40 MG TAB PO SCH (09:25)
[2021-02-09] MEDS: CHOLECALCIFEROL 1,000 UNITS 25 MCG TAB PO SCH (09:26)
[2021-02-09] MEDS: MULTIVITAMIN TAB PO SCH (09:26)
[2021-02-09] MEDS ORDERED: METOPROLOL SUCC 50MG EXT REL TAB PO STA (10:52)
--- NOTE | 2021-02-09 11:00 | Hospitalist Progress Note ---
Date of Service February 09, 2021 Assessment & Plan (1) Sepsis due to urinary tract infection: Plan: Sepsis due to urinary tract infection- Continue Ceftriaxone 2g IV daily Follow urine culture and sensitivity NSS at 60 mils per hour x1 L Zofran 4 mg IV every 6 hours as needed Reduce antihypertensives as noted below (2) Acute kidney injury superimposed on chronic kidney disease: Plan: Creatinine 1.33 upon admission, with base 1.04 Hydrate with IV fluids as noted, and recheck laboratories in a.m. Treat UTI as noted (3) Atrial fibrillation, permanent: Plan: Permanent atrial fibrillation/hypertension/PAD- Restart metoprolol succinate @ 200mg PO daily (additional 150mg now to add to 50mg already had this morning) Continue to hold diltiazem but restart as BP and HR allow Continue Xarelto (4) Hypertension: Plan: See above (5) PAD (peripheral artery disease): Plan: See above (6) Dyslipidemia: Plan: Patient is on pitavastatin as an outpatient (7) Gastroesophageal reflux disease: Plan: Continue dexlansoprazole/pantoprazole (8) Peripheral neuropathy: Plan: Continue pregabalin Plan: VTE Prophylaxis - Xarelto as above Diet - heart healthy Disposition - stable for transfer to med/tele, need to continue to monitor a. flutter Admission and Anticipated Discharge Date Admission Date: February 08, 2021 Subjective Patient unable to give me any history. Tells me she is in the doctors office and that she came here for "prolol" because her doctor said she should have it. Reports having a headache which she usually gets intermittently but cannot tell me what she usually takes for it or why she gets headaches. Denies any history of migraines although Fioricet on home med list. Discussed care with her who feels she is mostly at her baseline when he talked to her over the phone. Usually has some degree of memory deficit. Telemetry: atrial flutter/fibrillation (mainly flutter), occasional rate increase to 190 but mostly now in 80s while resting Review of Systems Review of Systems: All systems reviewed & are unremarkable except as noted in HPI & below Constitutional: + fatigue, + malaise and + weakness; no fever and no chills Neurologic: + confusion Physical Exam Constitutional: WD/WN, vitals as above Eyes: PERRL and EOM intact bilaterally (no dipolpia) ENMT: external ear and nose normal, oropharynx normal Respiratory: normal respiratory effort, lungs clear to auscultation Cardiovascular: Rate/Rhythm: + tachycardic and + irregularly irregular Heart Sounds: + murmur Extremities: + pedal edema (trace ankles) Gastrointestinal (Abdomen): normal bowel sounds, soft, nontender, no hepatosplenomegaly Musculoskeletal: no cyanosis or clubbing, extremities motor strength 5/5 Skin: no rashes, warm and dry (no areas of cellulitis) Neurologic: moves all extremities, awake and + confused; no focal motor deficits (no lateralizing deficit) Motor/Sensory: no pronator drift Psychiatric: Orientation: alert, oriented to person and oriented to time (year only); + not oriented to place Results & Data Results & Data ([facility]) Vital Signs (Past 12 Hours) Vital Signs Temp Pulse Pulse Resp BP BP Pulse Ox 02/09/21 07:41 36.5 C 85 18 130/77 96 02/09/21 04:28 36.5 C 92 H 20 138/86 96 02/09/21 03:30 90 22 141/75 H 94 02/09/21 03:00 100 H 15 139/86 95 02/09/21 02:30 79 21 118/76 96 02/09/21 02:00 87 22 122/83 96 02/09/21 01:30 88 20 123/77 94 02/09/21 01:00 92 H 22 127/81 95 02/09/21 00:40 126 H 20 02/09/21 00:30 103 H 18 97 02/09/21 00:20 93 H 18 97 02/09/21 00:10 97 H 16 96 02/09/21 00:02 92 H 18 87 L 02/08/21 23:30 74 20 128/97 95 02/08/21 23:00 84 27 H 158/94 H 96 PG Care Time/CCT Total # of Minutes Spent Total Time Spent with Patient: Total time spent is greater than 50% in coordination of care (as documented) at patient's floor/unit and/or counseling patient: Coding Level of Care Code 09067 Subseq Hosp Care Lvl 3 Diagnoses Sepsis due to urinary tract infection A41.9; N39.0 Acute kidney injury superimposed on chronic kidney disease N17.9; N18.9 Atrial fibrillation, permanent I48.21 Hypertension I10 Hypertension type: essential hypertension PAD (peripheral artery disease) I73.9 Dyslipidemia E78.5 Gastroesophageal reflux disease K21.9 Peripheral neuropathy G62.9 (1) Hypertension Hypertension type: essential hypertension Qualified Code(s): I10 - Essential (primary) hypertension
--- NOTE | 2021-02-09 15:28 | Electrocardiogram Report ---
Test Reason : Blood Pressure : / mmHG Vent. Rate : 112 BPM Atrial Rate : 094 BPM P-R Int : 000 ms QRS Dur : 084 ms QT Int : 320 ms P-R-T Axes : 000 -04 000 degrees QTc Int : 436 ms Poor data quality, interpretation may be adversely affected Atrial fibrillation with rapid ventricular response Inferior infarct , age undetermined Abnormal ECG When compared with ECG of 01-AUG-2020 19:41, Atrial fibrillation has replaced Atrial flutter Confirmed by Rajendra Gibbs ([id number]) on 02/09/2021 3:28:01 PM Referred By: Esa Muller Confirmed By:Rajendra Gibbs
--- NOTE | 2021-02-09 15:32 | Electrocardiogram Report ---
Test Reason : Blood Pressure : / mmHG Vent. Rate : 097 BPM Atrial Rate : 122 BPM P-R Int : 000 ms QRS Dur : 086 ms QT Int : 364 ms P-R-T Axes : 000 002 -70 degrees QTc Int : 462 ms Atrial fibrillation Nonspecific ST and T wave abnormality Abnormal ECG When compared with ECG of 08-FEB-2021 19:58, (unconfirmed) No significant change was found Confirmed by Rajendra Gibbs ([id number]) on 02/09/2021 3:32:34 PM Referred By: Esa Muller Confirmed By:Rajendra Gibbs
--- NOTE | 2021-02-09 15:42 | Electrocardiogram Report ---
Test Reason : Blood Pressure : / mmHG Vent. Rate : 104 BPM Atrial Rate : 127 BPM P-R Int : 000 ms QRS Dur : 086 ms QT Int : 378 ms P-R-T Axes : 000 005 106 degrees QTc Int : 497 ms Atrial fibrillation with rapid ventricular response Nonspecific ST and T wave abnormality Abnormal ECG When compared with ECG of 09-FEB-2021 06:31, No significant change was found Confirmed by Rajendra Gibbs ([id number]) on 02/09/2021 3:42:13 PM Referred By: Esa Muller Confirmed By:Rajendra Gibbs
[2021-02-09] MEDS: RIVAROXABAN 15 MG TAB PO SCH (18:26)
[2021-02-09] MEDS: METOPROLOL SUCC 50MG EXT REL TAB PO SCH (21:32)
[2021-02-09] MEDS: cefTRIAXone SODIUM 2,000 MG in DEXTROSE 5% 50 ML IV SCH (23:10)
[2021-02-10] MEDS: METOPROLOL SUCC 50MG EXT REL TAB PO SCH ×2 (07:58→20:30)
[2021-02-10] MEDS: MIRABEGRON ER 25 MG TAB PO SCH (07:58)
[2021-02-10] MEDS: PANTOprazole 40 MG TAB PO SCH (07:59)
[2021-02-10] MEDS: CHOLECALCIFEROL 1,000 UNITS 25 MCG TAB PO SCH (07:59)
[2021-02-10] MEDS: MULTIVITAMIN TAB PO SCH (07:59)
[2021-02-10] MEDS: PREGABALIN 100 MG CAP PO SCH ×3 (08:02→20:30)
[2021-02-10 08:10] LABS: Calcium 9.4 mg/dl (8.5-10.1); Creatinine Clr Calc Pharmacy 49.6 ml/min; Est GFR (African American) 63.3 ml/min; Est GFR (Non-African American) 54.6 ml/min; Potassium 3.5 mmol/L (3.5-5.1)
[2021-02-10 08:11] LABS: Basophils # (auto) 0.02 K/uL (0-0.2); Basophils % (auto) 0.3 %; Eosinophils # (auto) 0.03 K/uL (0-0.5); Eosinophils % (auto) 0.4 %; Hematocrit (blood only) 36.1 % (37-47); Hemoglobin 11.9 g/dL (12.0-16.0); Immature Granulocytes # (auto) 0.03 K/uL (0.00-0.02); Immature Granulocytes % (auto) 0.4 %; Lymphocytes # (auto) 1.93 K/uL (1.2-3.4); Lymphocytes % (auto) 28.8 %; Mean Corpuscular Hemoglobin 32.2 pg (25-34); Mean Corpuscular Volume 97.8 fL (80-100); Mean Platelet Volume 12.6 fL (7.4-10.4); Monocytes # (auto) 0.59 K/uL (0.11-0.59); Monocytes % (auto) 8.8 %; Neutrophils # (auto) 4.11 K/uL (1.4-6.5); Neutrophils % (auto) 61.3 %; Platelet Count 150 K/uL (130-400); RDW Coefficient of Variation 12.7 % (11.5-14.5); Red Blood Count 3.69 M/uL (4.2-5.4); White Blood Count 6.71 K/uL (4.8-10.8)
[2021-02-10] MEDS ORDERED: Nursing to Pharmacy Communication SCH (08:15)
[2021-02-10] MEDS ORDERED: METOPROLOL SUCC 50MG EXT REL TAB PO SCH (09:00)
--- NOTE | 2021-02-10 12:42 | Hospitalist Progress Note ---
Date of Service February 10, 2021 Assessment & Plan (1) Sepsis due to urinary tract infection: Plan: Sepsis due to urinary tract infection- Continue Ceftriaxone 2g IV daily, switch to amoxicillin on discharge Urine culture - E. Coli resistant to macrobid alone Zofran 4 mg IV every 6 hours as needed Reduce antihypertensives as noted below (2) Acute kidney injury superimposed on chronic kidney disease: Plan: Creatinine 1.33 upon admission, with base 1.04 Hydrate with IV fluids as noted, and recheck laboratories in a.m. Treat UTI as noted (3) Atrial fibrillation, permanent: Plan: Permanent atrial fibrillation/hypertension/PAD- Increase metoprolol succinate to 100mg PO BID (home dose) Continue to hold diltiazem but restart as BP and HR allow Continue Xarelto Consult cardiology (4) Right knee pain: Plan: XR right knee (5) Hypertension: Plan: See above (6) PAD (peripheral artery disease): Plan: See above (7) Dyslipidemia: Plan: Patient is on pitavastatin as an outpatient (8) Gastroesophageal reflux disease: Plan: Continue dexlansoprazole/pantoprazole (9) Peripheral neuropathy: Plan: Continue pregabalin Plan: VTE Prophylaxis - Xarelto as above Diet - heart healthy Disposition - continue on med/tele, need to continue to monitor a. flutter/fib Admission and Anticipated Discharge Date Admission Date: February 08, 2021 Subjective Appears much more awake and alert today. Sitting in chair. Mobilized with physical therapy today although having right knee pain with walking. Reports this right medial knee pain started after a fall 2 weeks ago, she has an appointment. No shortness of breath or chest pain. Telemetry: occasional flutter in 180s but now better controlled with 70-80s at rest Review of Systems Review of Systems: All systems reviewed & are unremarkable except as noted in HPI & below Physical Exam Constitutional: WD/WN, vitals as above Eyes: + anicteric sclerae; normal pupil size ENMT: external ear and nose normal, oropharynx normal Respiratory: normal respiratory effort, lungs clear to auscultation Cardiovascular: Rate/Rhythm: + tachycardic and + irregularly irregular Heart Sounds: + murmur Extremities: + pedal edema (trace ankles) Gastrointestinal (Abdomen): normal bowel sounds, soft, nontender, no hepatosplenomegaly Musculoskeletal: no cyanosis or clubbing, extremities motor strength 5/5 Skin: no rashes, warm and dry (no areas of cellulitis) Neurologic: moves all extremities and awake; no focal motor deficits (no lat eralizing deficit) and not confused Psychiatric: Orientation: alert, oriented to person, oriented to place and oriented to time Genitourinary: no CVA tenderness Results & Data Results & Data ([facility]) Vital Signs (Past 12 Hours) Vital Signs Temp Pulse Pulse Resp BP Pulse Ox 02/10/21 11:10 36.6 C 82 20 102/70 96 02/10/21 08:28 75 02/10/21 07:42 36.5 C 86 20 123/75 94 02/10/21 03:40 36.6 C 82 20 120/75 94 02/10/21 01:00 80 PG Care Time/CCT Total # of Minutes Spent Total Time Spent with Patient: Total time spent is greater than 50% in coordination of care (as documented) at patient's floor/unit and/or counseling patient: Coding Level of Care Code 18548 Subseq Hosp Care Lvl 2 Diagnoses Sepsis due to urinary tract infection A41.9; N39.0 Acute kidney injury superimposed on chronic kidney disease N17.9; N18.9 Atrial fibrillation, permanent I48.21 Hypertension I10 Hypertension type: essential hypertension PAD (peripheral artery disease) I73.9 Dyslipidemia E78.5 Gastroesophageal reflux disease K21.9 Peripheral neuropathy G62.9 Right knee pain M25.561 (1) Hypertension Hypertension type: essential hypertension Qualified Code(s): I10 - Essential (primary) hypertension
--- NOTE | 2021-02-10 14:13 | XRay Report ---
XR knee RT 1 or 2V routine CLINICAL HISTORY: right knee pain s/p fall COMPARISON STUDY: None. FINDINGS: The bones are osteopenic. No fracture or dislocation within the right knee. Vascular calcif ications are noted. No significant knee effusion. Cystic change within the medial tibial plateau favo rs long-standing degenerative change. There is chondrocalcinosis. There is moderate to severe patello femoral joint osteoarthritis. There is mild to moderate degenerative changes within the femorotibial compartments. IMPRESSION: 1. No acute fracture or dislocation within the right knee. 2. Chondrocalcinosis with advanced degenerative changes at the patellofemoral joint. 3. Cystic change within the medial tibial plateau. This may be due to long-standing degenerative dhillon ge. ACT 112: Negative or not required by law. Electronically signed by: Bhaskar Li M.D. 02/10/2021 2:12 PM
[2021-02-10] MEDS: BUTALBITAL/ACETAMIN/CAFFEINE TAB PO PRN (16:20)
[2021-02-10] MEDS: RIVAROXABAN 15 MG TAB PO SCH (16:22)
--- NOTE | 2021-02-10 17:39 | Cardiology Consultation ---
Date of Consultation February 10, 2021 Assessment & Plan (1) Atrial fibrillation, permanent: (2) Atrial fibrillation with RVR: (3) Thoracic ascending aortic aneurysm: (4) Sepsis due to urinary tract infection: (5) Aortic regurgitation: ASSESSMENT/PLAN: 1. Atrial fibrillation with rapid ventricular response/permanent atrial fibrillation: Her heart rate is currently reasonably controlled. She was tachycardic this morning briefly with heart rates at times greater than 150 beats per minute and the rhythm appeared AFib at that time as well. Her rate- controlling medications had been held or significantly reduced due to hypotension with urosepsis. Her metoprolol has now been increased to a total of 200 mg daily with her first dose to start this evening. Continue home dose of metoprolol. If heart rate becomes more significantly elevated with exertion or at inappropriate times, would recommend resuming diltiazem. Her tachycardia otherwise has likely been due to holding of medications and her presenting infection in the setting of permanent atrial fibrillation. Continue anticoagulation for stroke risk reduction if no contraindication. Currently on Xarelto 15 mg daily based on creatinine clearance. 2. Thoracic ascending aortic aneurysm: Can be managed as an outpatient. Continue beta-moreno. 3. Aortic regurgitation: Has been non severe. Follow as an outpatient. 4. Sepsis due to urinary tract infection: As per primary service. Feeling better. 5. Disposition: Follow-up with Cardiology as an outpatient. Please call with any other questions or concerns. Plan of care communicated with Dr. Henson of the primary hospitalist service. Thank you for allowing me to participate in the care of your patient. Please call for any other questions or concerns. Sincerely, Justin Gómez M.D. History of Present Illness Reason for Consultation: Afib with RVR Requesting Physician: Bryan Henson MD Attending Physician: Bryan Henson MD History of Present Illness Mrs. Hendrix is a pleasant 85-year-old female with a history significant for permanent atrial fibrillation, hypertension, dyslipidemia, aortic regurgitation, mitral regurgitation, dilated ascending aorta, venous insufficiency, and mildly reduced LV systolic function (has since normalized). She was diagnosed with left lower extremity DVT in August of 2015. She has had the following studies: 1. Echo 05/14/12: Normal LV size with mildly reduced systolic function. EF 45- 50%. Mild global hypokinesis. Type I diastolic dysfunction. Mild LA dilation. Mild MR. Mild AI. Mildly dilated ascending aorta (3.9 cm). 2. Echo 03/28/13: Normal LV size with low normal systolic function. EF 50-55%. No clear-cut regional wall motion abnormalities. 1 diastolic dysfunction. Mild RV dilation with normal systolic function. Mild RA dilation. Mild AI. Mild MR. 3. Echo 04/17/2014: Normal LV systolic function. EF 55-60%. Mild LVH. Mild AI. Mild to moderate MR. Mildly dilated ascending aorta, 4.1 cm. 4. CTA 09/23/2015: Dilated ascending aorta 4.3 cm. No evidence for aortic dissection. No pulmonary embolus visualized. 5. Echo 03/28/2016: Normal LV size with low-normal systolic function. EF 50- 55%. No definite regional wall motion abnormalities. Type 1 diastolic dysfunction. Mild biatrial dilation. Mild AI. Mild MR. Ascending aorta 4.3 cm. 6. Echo 02/01/2017: Mildly dilated left ventricle with normal wall motion. EF 55-60. Mild LVH. Moderate left atrial dilation. Mild right atrial dilation. Mild AI. Mild to moderate MR. Ascending aorta 4.3 cm. RVSP 33. 7. Event monitor 03/21/2018 to 04/19/2018: Sinus rhythm. No symptoms. No arrhythmia. 8. Echo 04/08/2018: Normal LV size, wall motion, systolic function. EF 55-60%. No LVH. Type 2 diastolic dysfunction. Severe left atrial dilation. Sclerotic aortic valve with mild regurgitation. Mild MR. RVSP 30. Ascending aorta 4.5 cm. 9. Dobutamine stress echo 05/05/2019: Negative dobutamine stress echo and ECG for ischemia 85% MPHR. No chest pain. EF 55-60%. Normal wall motion. Mild to moderate LVH. Mild AI. Mild MR. Ascending aorta 4.3 cm. Normal RVSP. She was evaluated today at approximately 5:10 p.m.. She was admitted on 02/08/2021 presenting with 3 days worth of nausea, shortness of breath, and significant fatigue. She also had poor over all oral intake prior to presentation. Perhaps for the past 1-1.5 weeks, she has been experiencing chills upon urination but denies fevers. She has noted palpitations at times. She went to her PCPs office on 02/08/2021. She was noted to be mildly hypotensive and diaphoretic. It was recommended that she go to the emergency department. On presentation, she was felt to be septic from UTI and was placed on broad-spectrum antibiotic therapy. Her creatinine was elevated from baseline, up to 1.33. She was given IV fluids. She was also noted to be tachycardic while in atrial fibrillation on presentation. Due to hypotension, diltiazem was held and metoprolol was reduced from 200 mg daily to 50 mg twice daily. Metoprolol was increased to 100 mg twice daily today with the first dose to be given this evening. Her blood pressure has improved. Her overall heart rate has improved as well however she was significantly tachycardic earlier this morning with heart rates greater than 150 bpm briefly. Overall, she feels much better. Her shortness of breath has resolved. Nausea has improved, and overall she has noted improvement with antibiotic therapy. She denies chest pain, syncope, near-syncope. She has chronic lower extremity edema. She denies melena, hematochezia, hematuria, or other bleeding. Review of systems: As above. Family history: No known premature CAD. Her father took nitroglycerin in his 60s but she does not recall further specifics. Social history: Denies tobacco, drug abuse. Rare alcohol. She is and lives with her . 3 children (A son in the [place] area, daughter in [place], and a local son). Retired from [employer]. Her has accompanied her in the outpatient setting in the past, but she was unaccompanied in her hospital room today. Allergies Allergy/AdvReac Type Severity Reaction Status Date / Time atorvastatin AdvReac Intermediate liver Verified 02/08/21 19:54 enzymes elevate lisinopril AdvReac Unknown Verified 02/08/21 19:54 Home Medications Medication Instructions Recorded Confirmed Type cholecalciferol (vitamin D3) 25 1,000 units PO QAM cap 02/20/19 02/08/21 History mcg (1,000 unit) capsule multivitamin (Multiple Vitamins) 1 tab PO DAILY 02/20/19 02/08/21 History metoprolol succinate 200 mg 200 mg PO DAILY #90 tab 02/24/20 02/08/21 Rx tablet,extended release 24 hr polyethylene glycol 3350 17 gram 17 g PO TID PRN #30 ea 05/04/20 02/08/21 Rx oral powder packet (Miralax) dexlansoprazole 60 mg 60 mg PO QAM #90 cap 07/01/20 02/08/21 Rx capsule,biphase delayed release furosemide 20 mg tablet (Lasix) 20 mg PO BID PRN 08/01/20 02/08/21 History diltiazem HCl 90 mg 90 mg PO BID #180 cap 09/08/20 02/08/21 Rx capsule,extended release 12 hr losartan 25 mg tablet 25 mg PO QAM #90 tab 09/08/20 02/08/21 Rx mirabegron 25 mg tablet,extended 25 mg PO DAILY #90 tab 11/23/20 02/08/21 Rx release 24 hr nitrofurantoin macrocrystal 50 mg 50 mg PO HS #30 cap 01/03/21 02/08/21 Rx capsule (Macrodantin) [id number] 1 tab PO BID PRN #30 tab 01/06/21 02/08/21 Rx 50 mg-325 mg-40 mg tablet rivaroxaban 20 mg tablet (Xarelto) 20 mg PO QPM #30 tab 01/18/21 02/08/21 Rx spironolactone 25 mg tablet 25 mg PO DAILY #90 tab 01/18/21 02/08/21 Rx pregabalin 100 mg capsule 100 mg PO TID #90 cap 01/28/21 02/08/21 Rx pitavastatin calcium 4 mg tablet 4 mg PO DAILYBB 02/08/21 02/08/21 History (Livalo) Patient History Medical History Altered mental status Aortic regurgitation Arthritis of both feet Atrial fibrillation Atrial fibrillation with rapid ventricular response Chronic headache disorder Degenerative arthritis of knee, bilateral Gastroenteritis High cholesterol History of deep venous thrombosis Hypertension Hypokalemia Left kidney mass [facility]ed [facility] Neuropathy Osteoarthritis Osteoporosis PAD (peripheral artery disease) Popliteal cyst Posterior tibial tendon dysfunction Thoracic ascending aortic aneurysm Venous insufficiency Surgical History History of back surgery History of cholecystectomy History of hysterectomy History of tubal ligation Family History Mother Breast cancer Hypertension Coronary heart disease Father Coronary heart disease Myocardial infarction Sister Breast cancer Colorectal cancer Ovarian cancer Denies family history of Prostate cancer Social History Smoking Status: Unknown if ever smoked Hx Alcohol Use: Yes Alcohol type: wine Hx Substance Use: No Preferred Language: Japanese Communication Ability: Effective Visual Impairment: Limited Hearing Ability: Normal [employer] Required: No Beliefs That Will Affect Care: None marital status: Current Living Situation: Spouse Current Living Situation Comment: verbalizes he is unable to take care of pt. current occupational status: retired current occupation: part-time How many Children do You have: 3 Feels Safe at Home: Yes Childhood Exposure to Second-Hand Smoke: No caffeine: No Dental Care, Regularly: Yes Physical Activity Frequency: Does not Exercise Seatbelt Use: always Sunscreen Use: Yes Assistive Devices: Cane and Walker Physical Exam Physical Exam: Gen.: No acute distress. Alert and oriented. HEENT: Anicteric sclera. Neck: No JVD. No bruits. Normal carotid upstrokes bilaterally. Cardiac: PMI was nonpalpable. No ventricular heave. Irregularly irregular with normal rate. Normal S1-S2. No murmurs, rubs, or gallops. Pulmonary: Clear to auscultation bilaterally without wheezes, rales, or rhonchi. Abdomen: Soft, nontender, nondistended, with normoactive bowel sounds. No bruits noted. Extremities: 2+ radial pulses bilaterally. 2+ posterior tibialis pulses bilaterally. Trace bilateral lower extremity edema. No cyanosis. Psychiatric: Affect appears appropriate. Results & Data ([facility]) Vital Signs (Past 12 Hours) Vital Signs Temp Pulse Pulse Resp BP Pulse Ox 02/10/21 15:25 99 H 02/10/21 15:04 36.5 C 96 H 20 139/87 96 02/10/21 11:10 36.6 C 82 20 102/70 96 02/10/21 08:28 75 02/10/21 07:42 36.5 C 86 20 123/75 94 Intake & Output 02/08/21 02/09/21 02/10/21 02/11/21 06:59 06:59 06:59 06:59 Intake Total 1170 / 1170 1270 / 1270 290 / 290 Output Total 600 / 600 250 / 250 Balance 570 / 570 1020 / 1020 290 / 290 Weight 195 lb 15.855 oz Laboratory Results Laboratory Results - last 24 hr 02/10/21 02/10/21 06:53 06:53 WBC 6.71 RBC 3.69 L Hgb 11.9 L D Hct 36.1 L MCV 97.8 MCH 32.2 MCHC 33.0 RDW Std Deviation 45.0 RDW Coeff of Rudy 12.7 Plt Count 150 MPV 12.6 H Immature Gran % (Auto) 0.4 Neut % (Auto) 61.3 Lymph % (Auto) 28.8 [place] % (Auto) 8.8 Eos % (Auto) 0.4 Baso % (Auto) 0.3 Neut # (Auto) 4.11 Lymph # (Auto) 1.93 [place] # (Auto) 0.59 Eos # (Auto) 0.03 Baso # (Auto) 0.02 Immature Gran # (Auto) 0.03 H Sodium 143 Potassium 3.5 Chloride 112 H Carbon Dioxide 23 Anion Gap 8.0 BUN 14 Creatinine 0.95 D Est Cr Clr Drug Dosing 49.6 Est GFR ( Amer) 63.3 Est GFR (Non-Af Amer) 54.6 BUN/Creatinine Ratio 15.0 Glucose 82 Calcium 9.4 Diagnostic Findings Telemetry personally reviewed: Atrial fibrillation, mostly rate controlled. Episodes of tachycardia greater than 150 bpm this morning, briefly. No significant pauses noted. ECG 02/08/2021 at 7:58 p.m. personally reviewed: AFib with RVR 112 bpm. Possible inferior infarct. ECG 02/09/2021 at 10:04 a.m.: AFib with RVR [address]/T-wave abnormality. Chest x-ray 02/08/2021: No acute process per Radiology. Medications Administered Current Inpatient Medications Acetaminophen (Acetaminophen 325 Mg Tab) 650 mg PO Q4H PRN PRN Reason: Pain or Fever Stop: 03/11/21 04:27 Last Admin: 02/09/21 06:27 Dose: 650 mg Documented by: Acetaminophen/Butalbital/Caffeine (Butalbital/Acetamin/Caffeine Tab) 1 tab PO Q12H PRN PRN Reason: pain Stop: 03/11/21 10:57 Last Admin: 02/10/21 16:20 Dose: 1 tab Documented by: Ceftriaxone Sodium 2,000 mg/ (Dextrose) 70 mls @ 100 mls/hr IV Q24H [facility]; Protocol Stop: 02/19/21 21:59 Last Infusion: 02/10/21 21:49 Dose: Infused Documented by: Metoprolol Succinate (Metoprolol Succ 50mg Ext Rel Tab) 100 mg PO BID [facility] Stop: 03/12/21 20:59 Last Admin: 02/10/21 20:30 Dose: 100 mg Documented by: Mirabegron (Mirabegron Er 25 Mg Tab) 25 mg PO HS [facility] Stop: 03/12/21 20:59 Last Admin: 02/10/21 20:31 Dose: 25 mg Documented by: Miscellaneous (*Pitavistatin*Order Awaiting Action) 1 ea N/A QS [facility] Stop: 03/11/21 04:44 Last Admin: 02/10/21 15:41 Dose: Not Given Documented by: Multivitamins (Multivitamin Tab) 1 tab PO DAILY [facility] Stop: 03/11/21 08:59 Last Admin: 02/10/21 07:59 Dose: 1 tab Documented by: Nitroglycerin (Nitroglycerin Sl 0.4 Mg/Tab Tab) 0.4 mg SL UD PRN PRN Reason: Chest Pain Stop: 03/11/21 04:27 Ondansetron HCl (Ondansetron Inj 2 Mg/Ml 2 Ml Vial) 4 mg IV Q6H PRN PRN Reason: Nausea Stop: 03/11/21 04:27 Pantoprazole Sodium (Pantoprazole 40 Mg Tab) 40 mg PO QAM [facility]; Protocol Stop: 03/11/21 08:59 Last Admin: 02/10/21 07:59 Dose: 40 mg Documented by: Polyethylene Glycol (Polyethylene (Miralax) 17 Gm Pack) 17 gm PO TID PRN PRN Reason: constipation Stop: 03/11/21 04:27 Pregabalin (Pregabalin 100 Mg Cap) 100 mg PO TID [facility] Stop: 03/11/21 08:59 Last Admin: 02/10/21 20:30 Dose: 100 mg Documented by: Rivaroxaban (Rivaroxaban 15 Mg Tab) 15 mg PO QDD [facility]; Protocol Stop: 03/11/21 16:29 Last Admin: 02/10/21 16:22 Dose: 15 mg Documented by: Vitamin D (Cholecalciferol 1,000 Units 25 Mcg Tab) 1,000 units PO QAM [place] Stop: 03/11/21 08:59 Last Admin: 02/10/21 07:59 Dose: 1,000 units Documented by: PG Care Time/CCT Total # of Minutes Spent Total Time Spent with Patient: Total time spent is greater than 50% in coordination of care (as documented) at patient's floor/unit and/or counseling patient: Coding Level of Care Code 06443 Initial Inpt Care Lvl 2 Diagnoses Atrial fibrillation, permanent I48.21 Atrial fibrillation with RVR I48.91 Thoracic ascending aortic aneurysm I71.2 Sepsis due to urinary tract infection A41.9; N39.0 Aortic regurgitation I35.1
[2021-02-10] MEDS: cefTRIAXone SODIUM 2,000 MG in DEXTROSE 5% 50 ML IV SCH (20:31)
[2021-02-10] MEDS ORDERED: MIRABEGRON ER 25 MG TAB PO SCH (21:00)
[2021-02-10] MEDS ORDERED: SULFAMETHOXAZOLE/TRIMETHOPRIM DS 800/160MG TAB PO SCH (21:00)
[2021-02-11 07:25] LABS: BUN Creatinine Ratio 16.3 (10-20); Calcium 9.7 mg/dl (8.5-10.1); Creatinine Clr Calc Pharmacy 43.4 ml/min; Est GFR (Non-African American) 45.7 ml/min; Potassium 3.6 mmol/L (3.5-5.1)
[2021-02-11] MEDS: BUTALBITAL/ACETAMIN/CAFFEINE TAB PO PRN (07:51)
[2021-02-11] MEDS: MULTIVITAMIN TAB PO SCH (07:52)
[2021-02-11] MEDS: PANTOprazole 40 MG TAB PO SCH (07:52)
[2021-02-11] MEDS: CHOLECALCIFEROL 1,000 UNITS 25 MCG TAB PO SCH (07:52)
[2021-02-11] MEDS: METOPROLOL SUCC 50MG EXT REL TAB PO SCH (07:52)
[2021-02-11] MEDS: PREGABALIN 100 MG CAP PO SCH (08:05)
[2021-02-11 08:42] LABS: Hemoglobin 13.4 g/dL (12.0-16.0); Mean Corpuscular Hemoglobin 32.8 pg (25-34); Mean Corpuscular Hgb Conc 33.5 g/dL (32-36); Mean Corpuscular Volume 97.8 fL (80-100); Mean Platelet Volume 12.9 fL (7.4-10.4); Platelet Count 174 K/uL (130-400); RDW Coefficient of Variation 12.6 % (11.5-14.5); RDW Standard Deviation 44.9 fL (36.4-46.3); Red Blood Count 4.09 M/uL (4.2-5.4); White Blood Count 7.23 K/uL (4.8-10.8)
[2021-02-11] MEDS ORDERED: AMOXICILLIN 500 MG CAP PO SCH (09:00)
[2021-02-11] MEDS ORDERED: dilTIAZem HCl 60 MG TAB PO SCH (09:15)
--- NOTE | 2021-02-11 12:30 | Discharge Summary ---
Date of Service February 11, 2021 Admission HPI Per Admitting Provider The patient is a 85-year-old female with a past putting per A. fib, hypertension, atrial fib with RVR, PAD, aortic regurgitation, thoracic ascending aortic aneurysm, recurrent UTI, dyslipidemia, CKD, gait disturbance, urinary urge incontinence, GERD, shots he is very, hyperparathyroidism, peripheral neuropathy and vitamin D deficiency. She presents with 3 days of generalized fatigue, nausea and shortness of breath. She reports overall poor intake over the past 24 hours, but did take her medications. She denies any recent travels or sick exposures. Discharge Data Allergies Allergy/AdvReac Type Severity Reaction Status Date / Time atorvastatin AdvReac Intermediate liver Verified 02/08/21 19:54 enzymes elevate lisinopril AdvReac Unknown Verified 02/08/21 19:54 Consultations 02/08/21 22:34 ED Decision to Admit Stat 02/10/21 12:31 Consult Cardiology Routine Ordered Studies 02/08/21 21:20 CT abd pelvis IV con only Urgent Hospital Course (1) Sepsis due to urinary tract infection: Sepsis due to urinary tract infection- Continue Ceftriaxone 2g IV daily, switch to amoxicillin on discharge Urine culture - E. Coli resistant to macrobid alone Zofran 4 mg IV every 6 hours as needed Reduce antihypertensives as noted below (2) Acute kidney injury superimposed on chronic kidney disease: Creatinine 1.33 upon admission, with base 1.04 Hydrate with IV fluids as noted, and recheck laboratories in a.m. Treat UTI as noted (3) Atrial fibrillation, permanent: Permanent atrial fibrillation/hypertension/PAD- Increase metoprolol succinate to 100mg PO BID (home dose) Continue to hold diltiazem but restart as BP and HR allow Continue Xarelto Consult cardiology (4) Right knee pain: XR right knee (5) Hypertension: See above (6) PAD (peripheral artery disease): See above (7) Dyslipidemia: Patient is on pitavastatin as an outpatient (8) Gastroesophageal reflux disease: Continue dexlansoprazole/pantoprazole (9) Peripheral neuropathy: Continue pregabalin VTE Prophylaxis - Xarelto as above Diet - heart healthy Disposition - continue on med/tele, need to continue to monitor a. flutter/fib Discharge Plan Discharge Items Patient Disposition: Home - Home Health Services Reason For Visit: SEPSIS DUE TO UTI Discharge Diagnosis: Sepsis Urinary tract infection Atrial fibrillation with rapid ventricular rate Condition on Discharge: Good Activity: Resume your previous activity Non-emergency contact: Primary Care Provider Call non-emergency contact if: you have any medication questions and your symptoms worsen Follow-up/Referrals: Esa Muller, [Primary Care Provider] - Diet: Heart Healthy Addtl Attending Provider Instructions: You were admitted to [facility] from February 08 - 2020 due to nausea, vomiting, generalize weakness. You were diagnosed with a urinary tract infection treated with intravenous ceftriaxone (antibiotic) as an inpatient and you will be transitioned to amoxicillin as an outpatient to complete a total 10 day course. You were restarted on your heart rate controlling medications for atrial fibrillation but will continue to hold anti-hypertensives spironolactone and losartan due to continued low blood pressures and recommend following up with your primary care physician for resumption of these medications as medically necessary as you recover from this urinary tract infection. Pending Studies at Discharge: No Stand-Alone Forms: My [facility], Smoking Cessation Medications and DC Order Prescriptions: New Xarelto 15 mg Tablet 15 mg PO QDD Qty: 30 RF: 0 amoxicillin 500 mg Capsule 500 mg PO TID 7 Days Qty: 21 RF: 0 Continued dexlansoprazole 60 mg capsule,biphase delayed releas 60 mg PO QAM Qty: 90 RF: 3 diltiazem HCl 90 mg capsule,extended release 12 hr 90 mg PO BID Qty: 180 RF: 3 mirabegron 25 mg tablet extended release 24 hr 25 mg PO DAILY Qty: 90 RF: 3 nitrofurantoin macrocrystal [Macrodantin] 50 mg capsule 50 mg PO HS Qty: 30 RF: 5 tviqkigolx-kbodyizxhnbbp-ilho 50-325-40 mg tablet 1 tab PO BID PRN (Reason: pain) Qty: 30 RF: 1 Hold Instructions: PLan on pt reducing her frequency, monitor with refill pregabalin 100 mg capsule 100 mg PO TID Qty: 90 RF: 1 multivitamin [Multiple Vitamins] tablet 1 tab PO DAILY RF: 0 cholecalciferol (vitamin D3) 1,000 unit capsule 1,000 units PO QAM RF: 0 metoprolol succinate 200 mg tablet extended release 24 hr 200 mg PO DAILY Qty: 90 RF: 3 polyethylene glycol 3350 [Miralax] 17 gram Powder In Packet 17 g PO TID PRN (Reason: constipation) Qty: 30 RF: 0 Livalo 4 mg tablet 4 mg PO DAILYBB RF: 0 Discontinued losartan 25 mg tablet 25 mg PO QAM Qty: 90 RF: 3 spironolactone 25 mg tablet 25 mg PO DAILY Qty: 90 RF: 3 Xarelto 20 mg tablet 20 mg PO QPM Qty: 30 RF: 2 furosemide [Lasix] 20 mg Tablet 20 mg PO BID PRN (Reason: Edema) RF: 0 Discharge Orders: Discharge Order (Routine); Ordered 02/11/21 Ordered By: Bryan Henson Admission Data Admit Date/Time: 02/08/21 23:05 Attending Provider: Bryan Henson Admit Provider: Ricardo Bach Primary Care Provider: Esa Muller Other Providers: Ricardo Bach ; Migue Gómez Coding Diagnoses Sepsis due to urinary tract infection A41.9; N39.0 Acute kidney injury superimposed on chronic kidney disease N17.9; N18.9 Atrial fibrillation, permanent I48.21 Right knee pain M25.561 Hypertension I10 Hypertension type: essential hypertension PAD (peripheral artery disease) I73.9 Dyslipidemia E78.5 Gastroesophageal reflux disease K21.9 Peripheral neuropathy G62.9 Home Health Attestation I certify that this patient is under my care and that I, or a physicians project assistant working with me, had a face to-face encounter that meets the home health [id number] encounter requirements with this patient. The encounter with the patient was in whole, or in part, for the following medical condition, which is the primary reason for home health care (list medical condition): Sepsis. I certify that, based on my findings, the following services are medically necessary home health services: My clinical findings support the need for the above services because: Skilled Nsg Assessment Further, I certify that my clinical findings support that this patient is homebound (i.e. absences from home require considerable and taxing effort and are for medical reasons or anglican services or infrequently or of short duration when for other reasons) because: Supportive Aid - Walker Certification for Home Health Services: Based on the above findings, I certify that this patient is confined to the home and needs intermittent long term care, physical therapy and/or speech therapy or continues to need occupational therapy. The patient is under my care, and I have initiated the establishment of the plan of care. This patient will be followed by a physician who will periodically review the plan of care.
[2021-02-11] MEDS ORDERED: DOCUSATE SODIUM/SENNA 50/8.6MG TAB PO SCH (12:45)
== END 2021-02-11 14:13 | disposition home health service (06) | DRG 872 ==
LOC: ED 18:29 → EDINP 23:05 → SUATTDRO 23:05 → 2S 02-09 03:39 → 2N 02-09 10:57

== ENCOUNTER 2021-07-09 23:38 | Observation (INO) ==
[2021-07-10] MEDS ORDERED: NITROGLYCERIN SL 0.4 MG/TAB TAB SL PRN ×2 (00:19→05:17)
--- NOTE | 2021-07-10 00:25 | Emergency Department Note ---
Impression & Plan Substernal chest pain, Acute dyspnea Admit to the [facility] service ED Provider Note NAME: SARA NOEL AGE: 86 SEX: F ARRIVES VIA: Walk-In INFORMANT: Patient and her ED PROVIDER(S): Clair Bowen DO CHIEF COMPLAINT: Chest pressure and shortness of breath PLAN: Disposition: Admit to the [facility] Condition: Good MEDICAL DECISION MAKING: This is an 86-year-old female patient who presents to the emergency department with increasing shortness of breath and chest pressure. The patient's chest pressure seemed to subside on its own. She had no EKG changes noted. She was given IV Lasix as she was dyspneic with conversation and chest x-ray confirmed pulmonary edema. Patient did start to produce significant urine. [facility] for further management. Triage Nursing notes reviewed and agree with them. Additional history obtained from who is at the bedside Prior medical records reviewed Vital Signs: reviewed and remarkable for hypertension Differential diagnosis: NSTEMI, STEMI, CHF, pneumonia, pulmonary edema, COVID-19, PE ER treatment provided: IV Lasix-40 mg Diagnostics interpreted by me: ECG: Atrial fibrillation at a rate of [address] segment elevation or signs of ischemia. There is no ectopy. Cardiac Monitoring: A. fib at a rate of 98 Laboratory studies: See below Imaging studies: As per my interpretation Portable chest x-ray: Pulmonary edema HPI: 86/F arrives for evaluation of chest pressure and shortness of breath. Patient developed nausea earlier this evening after supper and then developed chest pressure and shortness of breath around 9 PM this evening. She describes it as feeling as if somebody were standing on her chest. She then broke out into a cold sweat. She denies ever having symptoms like this in the past. She does state that she has had increasing lower extremity swelling over the past couple of days. She does have a history of atrial fibrillation for which she takes Xarelto. She was recently switched from Eliquis to Xarelto. ROS: See above HPI for pertinent positives & negatives. A total of 10 systems reviewed and were otherwise negative. PAST MEDICAL HISTORY:See Below PAST SURGICAL HISTORY:See Below FAMILY HISTORY:See Below SOCIAL HISTORY:See Below HOME MEDICATIONS:See list ALLERGIES:See list VITALS:See Below PHYSICAL EXAMINATION: HEENT: Head - normocephalic and atraumatic Pupils are equal, round, and reactive to light. Extraocular eye muscles are intact, and sclera are anicteric. Nose - moist nasal mucosa without discharge. Mouth - moist buccal mucosa. Oropharynx is nonerythematous and there is no tonsillar exudate or edema noted. Neck: Supple; no JVD or cervical lymphadenopathy. Heart: Irregularly irregular rhythm with controlled rate there is a normal S1 and S2 with no murmurs, clicks, or gallops appreciated. Lungs: Diffuse Rales with diminished breath sounds at both lung bases. Abdomen: Soft, completely nontender, nondistended, with good bowel sounds. There are no palpable pulsatile masses or hepatosplenomegaly. There is no guarding, rigidity, or rebound noted. Extremities: No evidence of cyanosis, clubbing, or edema. There are easily palpable peripheral pulses. Skin: warm and dry with good turgor and no rashes. ED COURSE: Times/Reassessments: 0005: The patient was evaluated in room B5. A complete history and physical was performed. An order was placed for continuous cardiac monitoring. The patient was in atrial fibrillation at a rate of 98. A twelve-lead EKG was obtained. Laboratory studies were drawn as above. A portable chest x-ray was performed. The patient was given 40 mg of IV Lasix. Clair Bowen DO Past Med/Surg History Medical History Altered mental status Aortic regurgitation Arthritis of both feet Atrial fibrillation Atrial fibrillation with rapid ventricular response Chronic headache disorder Degenerative arthritis of knee, bilateral Gastroenteritis High cholesterol History of deep venous thrombosis Hypertension Hypokalemia Left kidney mass Neuropathy Osteoarthritis Osteoporosis PAD (peripheral artery disease) Popliteal cyst Posterior tibial tendon dysfunction Thoracic ascending aortic aneurysm Venous insufficiency Surgical History History of back surgery History of cholecystectomy History of hysterectomy History of tubal ligation Family History Mother Breast cancer Hypertension Coronary heart disease Father Coronary heart disease Myocardial infarction Sister Breast cancer Colorectal cancer Ovarian cancer Denies family history of Prostate cancer Social History Smoking Status: Never smoker Hx Alcohol Use: Yes Alcohol type: wine Hx Substance Use: No Preferred Language: Mauritanian Communication Ability: Effective Visual Impairment: Limited Hearing Ability: Normal 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 current occupational status: retired current occupation: part-time How many Children do You have: 3 Feels Safe at Home: Yes Childhood Exposure to Second-Hand Smoke: No caffeine: No Dental Care, Regularly: Yes Physical Activity Frequency: Does not Exercise Seatbelt Use: always Sunscreen Use: Yes Assistive Devices: Glasses Allergies Allergies Allergy/AdvReac Type Severity Reaction Status Date / Time atorvastatin AdvReac Intermediate liver Verified 07/10/21 01:19 enzymes elevate lisinopril AdvReac Unknown Verified 07/10/21 01:19 Home Meds Home Medications Medication Instructions Recorded Confirmed cholecalciferol (vitamin D3) 25 1,000 units PO QAM cap 02/20/19 07/10/21 mcg (1,000 unit) capsule multivitamin (Multiple Vitamins) 1 tab PO DAILY 02/20/19 07/10/21 pitavastatin calcium 4 mg tablet 4 mg PO DAILYBB 02/08/21 07/10/21 (Livalo) methenamine hippurate 1 gram tablet 1 g PO QAM tab 03/31/21 07/10/21 mirabegron 25 mg tablet,extended 25 mg PO DAILY tab 03/31/21 07/10/21 release 24 hr Previous Rx's Medication Instructions Recorded polyethylene glycol 3350 17 gram 17 g PO TID PRN #30 ea 05/04/20 oral powder packet (Miralax) dexlansoprazole 60 mg 60 mg PO QAM #90 cap 07/01/20 capsule,biphase delayed release pnaqypvgvj-orjgaoasormtn-sovtqphu 1 tab PO BID PRN #30 tab 01/06/21 50 mg-325 mg-40 mg tablet sennosides 8.6 mg-docusate sodium 1 tab-cap PO BID PRN #30 tab 02/11/21 50 mg tablet (Senna Plus) diltiazem HCl 30 mg tablet 30 mg PO BID #120 tab 02/17/21 furosemide 20 mg tablet (Lasix) 20 mg PO DAILY PRN #90 tab 03/08/21 rivaroxaban 15 mg tablet (Xarelto) 15 mg PO QDD #30 tab 03/08/21 ondansetron 4 mg disintegrating 4 mg PO Q8H PRN #30 tab 03/10/21 tablet metoprolol succinate 200 mg 200 mg PO DAILY #90 tab 04/29/21 tablet,extended release 24 hr pregabalin 100 mg capsule 100 mg PO TID PRN #90 cap 05/26/21 donepezil 5 mg tablet 5 mg PO DAILY #30 tab 06/16/21 Results & Data (ED) Vital Signs Vital Signs - 24 hr 07/10/21 04:00 Pulse Rate [Finger] 83 Respiratory Rate 18 Blood Pressure [Right Arm] 153/100 H Blood Pressure Mean [Right Arm] 117 Pulse Oximetry 100 Oxygen Delivery Method Nasal Cannula Oxygen Flow Rate 2 Laboratory Data Result diagrams: 07/10/21 02:28 07/10/21 02:28 Lab Results 07/10/21 07/10/21 07/10/21 Range/Units 02:28 02:28 02:28 WBC 8.00 (4.8-10.8) K/uL RBC 4.14 L (4.2-5.4) M/uL Hgb 13.4 (12.0-16.0) g/dL Hct 41.2 (37-47) % MCV 99.5 (80-100) fL MCH 32.4 (25-34) pg MCHC 32.5 (32-36) g/dL RDW Std Deviation 48.9 H (36.4-46.3) fL RDW Coeff of Rudy 13.5 (11.5-14.5) % Plt Count 131 (130-400) K/uL MPV 12.7 H (7.4-10.4) fL Immature Gran % (Auto) 0.3 % Neut % (Auto) 57.1 % Lymph % (Auto) 36.0 % Turner % (Auto) 5.9 % Eos % (Auto) 0.6 % Baso % (Auto) 0.1 % Neut # (Auto) 4.57 (1.4-6.5) K/uL Lymph # (Auto) 2.88 (1.2-3.4) K/uL Turner # (Auto) 0.47 (0.11-0.59) K/uL Eos # (Auto) 0.05 (0-0.5) K/uL Baso # (Auto) 0.01 (0-0.2) K/uL Immature Gran # (Auto) 0.02 (0.00-0.02) K/uL Sodium 141 (136-145) mmol/L Potassium 4.0 (3.5-5.1) mmol/L Chloride 109 H (98-107) mmol/L Carbon Dioxide 28 (21-32) mmol/L Anion Gap 4 (3-11) BUN 21 (6-23) mg/dl Creatinine 0.90 (0.6-1.2) mg/dl Est Cr Clr Drug Dosing Not Reportable Est GFR ( Amer) 67.1 ml/min Est GFR (Non-Af Amer) 57.9 ml/min BUN/Creatinine Ratio 23.3 H (10-20) Glucose 99 (70-99(Fasting)) mg/dl Calcium 9.7 (8.5-10.1) mg/dl Total Bilirubin 0.5 (0.2-1.0) mg/dl AST 29 (13-39) U/L ALT 21 (7-52) U/L Alkaline Phosphatase 79 (34-104) U/L Troponin I 0.04 (0-0.04) ng/ml Total Protein 6.6 (6.0-8.3) gm/dl Albumin 4.0 (3.4-5.0) gm/dl Globulin 2.6 (2.5-4.0) gm/dl Albumin/Globulin Ratio 1.5 (0.9-2) Lipase 71 (11-82) U/L SARS-CoV-2, RNA, NAAT NEGATIVE (NEGATIVE) Administered Medications Diltiazem HCl (Diltiazem Hcl 30 Mg Tab) 30 mg PO BID JAXON Stop: 08/09/21 08:59 Last Admin: 07/10/21 21:13 Dose: Not Given Documented by: [id number] Admin: 07/10/21 09:32 Dose: 30 mg Documented by: [id number] Donepezil HCl (Donepezil Hcl 5 Mg Tab) 5 mg PO DAILY JAXON Stop: 08/09/21 08:59 Last Admin: 07/10/21 09:33 Dose: 5 mg Documented by: [id number] Furosemide (Furosemide 20 Mg Tab) 20 mg PO DAILY PRN PRN Reason: edema, weight gain, shortness of breath Stop: 08/09/21 05:16 Last Admin: 07/10/21 09:37 Dose: 20 mg Documented by: [id number] Methenamine Hippurate (Methenamine Hippurate 1 Gm Tab) 1 gm PO QAM [facility] Stop: 08/09/21 08:59 Last Admin: 07/10/21 09:33 Dose: 1 gm Documented by: [id number] Metoprolol Succinate (Metoprolol Succ 50mg Ext Rel Tab) 200 mg PO DAILY [facility] Stop: 08/09/21 08:59 Last Admin: 07/10/21 09:33 Dose: 200 mg Documented by: [id number] Mirabegron (Mirabegron Er 25 Mg Tab) 25 mg PO DAILY [facility] Stop: 08/09/21 08:59 Last Admin: 07/10/21 09:34 Dose: 25 mg Documented by: [id number] Miscellaneous (Livalo~Order Awaiting Action) 1 ea N/A QS [facility] Stop: 08/09/21 07:59 Last Admin: 07/11/21 00:30 Dose: Not Given Documented by: [id number] Admin: 07/10/21 15:38 Dose: Not Given Documented by: [id number] Admin: 07/10/21 08:41 Dose: Not Given Documented by: [id number] Multivitamins/Minerals (Cerovite Adv Formula Tab) 1 tab PO DAILY [facility] Stop: 08/09/21 08:59 Last Admin: 07/10/21 09:34 Dose: 1 tab Documented by: [id number] Ondansetron HCl (Ondansetron 4 Mg Od Tab) 4 mg PO Q8H PRN PRN Reason: nausea and vomiting Stop: 08/09/21 05:16 Last Admin: 07/10/21 22:56 Dose: 4 mg Documented by: [id number] Admin: 07/10/21 14:25 Dose: 4 mg Documented by: [id number] Pantoprazole Sodium (Pantoprazole 40 Mg Tab) 40 mg PO QAM [facility] Stop: 08/09/21 08:59 Last Admin: 07/10/21 09:35 Dose: 40 mg Documented by: [id number] Rivaroxaban (Rivaroxaban 15 Mg Tab) 15 mg PO QDD [facility] Stop: 08/09/21 16:29 Last Admin: 07/10/21 17:33 Dose: 15 mg Documented by: [id number] Vitamin D (Cholecalciferol 1,000 Units 25 Mcg Tab) [facility] Stop: 08/09/21 08:59 Last Admin: 07/10/21 09:32 Dose: 1,000 units Documented by: [id number] Discontinued Medications Acetaminophen (Acetaminophen 500 Mg Tab) Confirm Administered Dose 1,000 mg .ROUTE .STK-MED ONE Stop: 07/10/21 04:10 Last Admin: 07/10/21 04:14 Dose: Not Given Documented by: [id number] Acetaminophen (Acetaminophen 500 Mg Tab) 1,000 mg PO NOW STA Stop: 07/10/21 04:10 Last Admin: 07/10/21 04:14 Dose: 1,000 mg Documented by: [id number] Aspirin (Aspirin 81 Mg Ectab) 81 mg PO NOW STA Stop: 07/10/21 05:18 Last Admin: 07/10/21 05:54 Dose: 81 mg Documented by: [id number] Furosemide (Furosemide 40 Mg/4 Ml Vial) 40 mg IV ONE ONE Stop: 07/10/21 01:58 Last Admin: 07/10/21 02:24 Dose: 40 mg Documented by: [id number] Nitroglycerin (Nitroglycerin Sl 0.4 Mg/Tab Tab) 0.4 mg SL UD PRN PRN Reason: Chest Pain Stop: 08/09/21 00:18 Last Admin: 07/10/21 00:33 Dose: 0.4 mg Documented by: [id number] Nitroglycerin (Nitroglycerin Sl 0.4 Mg/Tab Tab) 0.4 mg SL NOW STA Stop: 07/10/21 05:18 Last Admin: 07/10/21 05:54 Dose: 0.4 mg Documented by: [id number] Discharge Plan Visit Data Chief Complaint: Arrhythmia/Palpitations Stated Complaint: A-FIB,SOB ED Provider: Clair Bowen Discharge Problem: Substernal chest pain, Acute dyspnea Patient Disposition: Admitted As Inpatient Discharge Instructions Interventions: ED Discharge Assessment Last Done: 07/10/21 14:56
[2021-07-10] MEDS ORDERED: FUROSEMIDE 40 MG/4 ML VIAL IV ONE (01:57)
[2021-07-10 02:43] LABS: Basophils # (auto) 0.01 K/uL (0-0.2); Basophils % (auto) 0.1 %; Eosinophils # (auto) 0.05 K/uL (0-0.5); Eosinophils % (auto) 0.6 %; Hematocrit (blood only) 41.2 % (37-47); Hemoglobin 13.4 g/dL (12.0-16.0); Immature Granulocytes # (auto) 0.02 K/uL (0.00-0.02); Immature Granulocytes % (auto) 0.3 %; Lymphocytes # (auto) 2.88 K/uL (1.2-3.4); Mean Corpuscular Hemoglobin 32.4 pg (25-34); Mean Corpuscular Hgb Conc 32.5 g/dL (32-36); Mean Corpuscular Volume 99.5 fL (80-100); Mean Platelet Volume 12.7 fL (7.4-10.4); Monocytes # (auto) 0.47 K/uL (0.11-0.59); Monocytes % (auto) 5.9 %; Neutrophils # (auto) 4.57 K/uL (1.4-6.5); Neutrophils % (auto) 57.1 %; Platelet Count 131 K/uL (130-400); RDW Coefficient of Variation 13.5 % (11.5-14.5); RDW Standard Deviation 48.9 fL (36.4-46.3); Red Blood Count 4.14 M/uL (4.2-5.4)
[2021-07-10 03:03] LABS: Troponin I 0.04 ng/ml (0-0.04)
[2021-07-10 03:06] LABS: Alanine Aminotransferase 21 U/L (7-52); Albumin Globulin Ratio 1.5 (0.9-2); Alkaline Phosphatase 79 U/L (34-104); Anion Gap 4 (3-11); Aspartate Aminotransferase 29 U/L (13-39); BUN Creatinine Ratio 23.3 (10-20); Bilirubin,Total 0.5 mg/dl (0.2-1.0); Blood Urea Nitrogen 21 mg/dl (6-23); Calcium 9.7 mg/dl (8.5-10.1); Carbon Dioxide 28 mmol/L (21-32); Chloride 109 mmol/L (98-107); Est GFR (African American) 67.1 ml/min; Est GFR (Non-African American) 57.9 ml/min; Globulin 2.6 gm/dl (2.5-4.0); Glucose 99 mg/dl (70-99(Fasting)); Lipase 71 U/L (11-82); Sodium 141 mmol/L (136-145); Total Protein 6.6 gm/dl (6.0-8.3)
[2021-07-10] MEDS ORDERED: ACETAMINOPHEN 500 MG TAB ONE (04:09)
[2021-07-10] MEDS ORDERED: ACETAMINOPHEN 500 MG TAB PO STA (04:09)
--- NOTE | 2021-07-10 04:39 | History & Physical Report ---
Date of Service July 10, 2021 Assessment & Plan (1) Chest pain: Plan: 86yo female with a history of AF with RVR (on xarelto), aortic regurgitation, HTN, HLD, GERD, osteoporosis, and arthritis presents with chest pressure and shortness of breath. Chest pain, chest pressure, SOB Differential includes ACS, afib, anxiety, others Symptoms improved with nitroglycerin in ED EKG shows rate-controlled atrial fibrillation without ischemic change Initial troponin negative; repeat q6h x2 ASA 81mg x1 given; will not schedule this as patient is already on xarelto Admit to med/surg telemetry Echo ordered Atrial fibrillation Currently rate-controlled Continue home diltiazem, metoprolol HLD Continue home pitavastatin Dementia Continue home donepezil History of recurrent UTI, urge incontinence Continue home methenamine, mirabegron Pure wick catheter ordered GERD Continue home dexlansoprazole FEN: heart healthy diet Code status: full code DVT ppx: xarelto Dispo: med/surg telemetry (2) Aortic regurgitation: (3) Atrial fibrillation with RVR: (4) Chronic kidney disease: (5) Dyslipidemia: (6) Gastroesophageal reflux disease: (7) Hypertension: (8) Osteoporosis: (9) PAD (peripheral artery disease): Plan: Patient seen and examined, chart reviewed, case discussed with Dr. Roberts and I agree with the assessment and plan as above Patient is an 86yo female with AF on Xarelto presenting with chest pressure and SOB that began after dinner Minimal relief with Nitro On exam she is afebrile, HD stable, NAD Skin - intact HEENT - No JVD Heart - +S1/S2, regular, bradycardic Lungs - CTA, minimal crackles in bilateral bases Abd - +BS, soft, NT/ND Ext - 1+ edema Labs and images reviewed Assessment/Plan - chest pressure, acute onset with associated SOB ?ACS vs CHF -Trend troponin -Telemetry monitoring -Diuresis -Remainder as above History of Present Illness Primary Care Provider: Esa Muller, DO 86yo female with a history of AF with RVR (on xarelto), aortic regurgitation, HTN, PAD, osteoporosis, and arthritis presents with chest pressure and shortness of breath. Symptoms began last night at dinnertime. Patient describes sudden- onset chest pain and pressure which began while patient was eating dinner. The chest pain was in the center of her chest and did not radiate. Patient also endorses mild SOB. Patient endorses nausea at that time although it has since resolved. Patient came to the ED after her chest pain and chest pressure persisted. Patient's chest pain/chest pressure has improved since arriving to the ED although it has not completely resolved. Patient has no history of CA and has never had similar symptoms before. Patient denies fever, chills, headache, abdominal pain, vomiting, and diarrhea. Allergies Allergy/AdvReac Type Severity Reaction Status Date / Time atorvastatin AdvReac Intermediate liver Verified 07/10/21 01:19 enzymes elevate lisinopril AdvReac Unknown Verified 07/10/21 01:19 Home Medications Medication Instructions Recorded Confirmed Type cholecalciferol (vitamin D3) 25 1,000 units PO QAM cap 02/20/19 07/10/21 History mcg (1,000 unit) capsule multivitamin (Multiple Vitamins) 1 tab PO DAILY 02/20/19 07/10/21 History polyethylene glycol 3350 17 gram 17 g PO TID PRN #30 ea 05/04/20 07/10/21 Rx oral powder packet (Miralax) dexlansoprazole 60 mg 60 mg PO QAM #90 cap 07/01/20 07/10/21 Rx capsule,biphase delayed release chdkwnbpxm-arcxvybfjzgnx-owdzlfqi 1 tab PO BID PRN #30 tab 01/06/21 07/10/21 Rx 50 mg-325 mg-40 mg tablet pitavastatin calcium 4 mg tablet 4 mg PO DAILYBB 02/08/21 07/10/21 History (Livalo) sennosides 8.6 mg-docusate sodium 1 tab-cap PO BID PRN #30 tab 02/11/21 07/10/21 Rx 50 mg tablet (Senna Plus) diltiazem HCl 30 mg tablet 30 mg PO BID #120 tab 02/17/21 07/10/21 Rx furosemide 20 mg tablet (Lasix) 20 mg PO DAILY PRN #90 tab 03/08/21 07/10/21 Rx rivaroxaban 15 mg tablet (Xarelto) 15 mg PO QDD #30 tab 03/08/21 07/10/21 Rx ondansetron 4 mg disintegrating 4 mg PO Q8H PRN #30 tab 03/10/21 07/10/21 Rx tablet methenamine hippurate 1 gram tablet 1 g PO QAM tab 03/31/21 07/10/21 History mirabegron 25 mg tablet,extended 25 mg PO DAILY tab 03/31/21 07/10/21 History release 24 hr metoprolol succinate 200 mg 200 mg PO DAILY #90 tab 04/29/21 07/10/21 Rx tablet,extended release 24 hr pregabalin 100 mg capsule 100 mg PO TID PRN #90 cap 05/26/21 07/10/21 Rx donepezil 5 mg tablet 5 mg PO DAILY #30 tab 06/16/21 07/10/21 Rx Past Med/Surg History Medical History Altered mental status Aortic regurgitation Arthritis of both feet Atrial fibrillation Atrial fibrillation with rapid ventricular response Chronic headache disorder Degenerative arthritis of knee, bilateral Gastroenteritis High cholesterol History of deep venous thrombosis Hypertension Hypokalemia Left kidney mass Neuropathy Osteoarthritis Osteoporosis PAD (peripheral artery disease) Popliteal cyst Posterior tibial tendon dysfunction Thoracic ascending aortic aneurysm Venous insufficiency Surgical History History of back surgery History of cholecystectomy History of hysterectomy History of tubal ligation Family History Mother Breast cancer Hypertension Coronary heart disease Father Coronary heart disease Myocardial infarction Sister Breast cancer Colorectal cancer Ovarian cancer Denies family history of Prostate cancer Social History Smoking Status: Never smoker Hx Alcohol Use: Yes Alcohol type: wine Hx Substance Use: No Preferred Language: Czech Communication Ability: Effective Visual Impairment: Limited Hearing Ability: Normal Chief Knowledge Officer Required: No Beliefs That Will Affect Care: Spiritual Spiritual Healthcare Practices: sabianism marital status: Current Living Situation: Spouse Current Living Situation Comment: verbalizes he is unable to take care of pt. current occupational status: retired current occupation: part-time How many Children do You have: 3 Feels Safe at Home: Yes Childhood Exposure to Second-Hand Smoke: No caffeine: No Dental Care, Regularly: Yes Physical Activity Frequency: Does not Exercise Seatbelt Use: always Sunscreen Use: Yes Assistive Devices: Glasses Review of Systems Review of Systems: See HPI Physical Exam Physical Exam: Constitutional: well-appearing, no acute distress HEENT: NCAT, no conjunctival injection, MMM CV: irregularly irregular rhythm, heart sounds distant, no murmur appreciated, 1+ pitting edema of BL LE Resp: CTABL, no wheezes/rales/rhonchi appreciated, no increased work of breathing GI: soft, nondistended, nontender, BS normoactive Neuro: alert, oriented, no focal neurologic deficit appreciated Psych: cooperative, pleasant, appropriate rate/volume/quantity of speech Results & Data Results & Data ([facility]) Vital Signs (Past 12 Hours) Vital Signs Temp Pulse Pulse Resp BP BP Pulse Ox 07/10/21 04:00 83 18 153/100 H 100 07/10/21 02:08 51 L 20 137/64 99 07/10/21 00:43 97 07/10/21 00:01 100 07/09/21 23:45 36.5 C 99 H 24 173/108 H 92 Resident Activity Tracking Resident Involvement: Resident Care 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
[2021-07-10] MEDS ORDERED: NITROGLYCERIN SL 0.4 MG/TAB TAB SL STA (05:17)
[2021-07-10] MEDS ORDERED: DOCUSATE SODIUM/SENNA 50/8.6MG TAB PO PRN (05:17)
[2021-07-10] MEDS ORDERED: ASPIRIN 81 MG ECTAB PO STA (05:17)
[2021-07-10] MEDS ORDERED: FUROSEMIDE 20 MG TAB PO PRN (05:17)
[2021-07-10] MEDS ORDERED: POLYETHYLENE (MIRALAX) 17 GM PACK PO PRN (05:17)
--- NOTE | 2021-07-10 08:33 | XRay Report ---
XR chest 1V portable CLINICAL HISTORY: Atypical chest pain TECHNIQUE: Single frontal radiograph of the chest was obtained. Comparison: Comparison is made to chest one view 03/10/2021 FINDINGS: No lines and tubes are seen. Cardiomegaly is noted. There is prominence and cephalization of the vasc ulature with Heath B lines seen. There is a left retrocardiac opacity. No right effusion, no pneumot horax is seen. A left effusion cannot be entirely excluded. IMPRESSION: Moderate pulmonary edema. Left retrocardiac opacity may represent atelectasis, pneumonia, aspiration, and/or layering effusion. ACT 112: Negative or not required by law. Electronically signed by: Saurabh Marquez M.D. 07/10/2021 8:31 AM
[2021-07-10] MEDS ORDERED: ALUMINUM/MAGNESIUM SUSP 30 ML UDC PO PRN (08:38)
[2021-07-10] MEDS ORDERED: MAGNESIUM HYDROXIDE SUSP 30 ML UDC PO PRN (08:38)
[2021-07-10] MEDS ORDERED: ACETAMINOPHEN 325 MG TAB PO PRN (08:38)
[2021-07-10] MEDS ORDERED: DEXLANSOPRAZOLE 60 MG PO SCH (09:00)
[2021-07-10] MEDS: CHOLECALCIFEROL 1,000 UNITS 25 MCG TAB PO SCH (09:32)
[2021-07-10] MEDS: dilTIAZem HCL 30 MG TAB PO SCH ×2 (09:32→21:13)
[2021-07-10] MEDS: METHENAMINE HIPPURATE 1 GM TAB PO SCH (09:33)
[2021-07-10] MEDS: METOPROLOL SUCC 50MG EXT REL TAB PO SCH (09:33)
[2021-07-10] MEDS: DONEPEZIL HCL 5 MG TAB PO SCH (09:33)
[2021-07-10] MEDS: MIRABEGRON ER 25 MG TAB PO SCH (09:34)
[2021-07-10] MEDS: CEROVITE ADV FORMULA TAB PO SCH (09:34)
[2021-07-10] MEDS: PANTOprazole 40 MG TAB PO SCH (09:35)
[2021-07-10 10:10] LABS: Appearance Urine Clear (Clear); Bacteria Urine Automated Negative (Negative); Bilirubin Urine Negative (Negative); Blood Urine Trace (Negative); Cast Urine Automated 0 /lpf (0-5); Color Urine Yellow; Glucose Urine UA Negative (Negative); Ketones Urine Negative (Negative); Leukocyte Esterase Urine Negative (Negative); Nitrite Urine Negative (Negative); Protein Urine Negative (Negative); Specific Gravity Urine 1.013 (1.000-1.030); Urobilinogen Urine Negative (Negative)
--- NOTE | 2021-07-10 12:57 | XCELERA ---
[id number]
[2021-07-10] MEDS: ONDANSETRON 4 MG OD TAB PO PRN ×2 (14:25→22:56)
--- NOTE | 2021-07-10 17:22 | Hospitalist Progress Note ---
Date of Service July 10, 2021 Assessment & Plan (1) Chest pain: Plan: 86yo female with a history of AF with RVR (on xarelto), aortic regurgitation, HTN, HLD, GERD, osteoporosis, and arthritis presents with chest pressure and shortness of breath. Chest pain with + Troponin - Symptoms improved with nitroglycerin in ED - EKG shows rate-controlled atrial fibrillation without ischemic change - Initial troponin negative; repeat troponin was positive at 0.07 with the following reading 0.06. Stopped checking repeat troponin - Elevated troponin could be due to A. fib with elevated blood pressure causing supply demand mismatch - ASA 81mg x1 given in ED - Echo ordered and resulted - Due to worsening changes on echo - lower EF, mod-severe MR, dilated LA, elevated PA pressure and low positive troponin today, consult cardiology-appreciate recs Acute systolic heart failure - New change in EF. Likely from MR - Received a dose of lasix in ED. - Diuresed. - follow I and Os. Atrial fibrillation - Currently rate-controlled - Continue home diltiazem, metoprolol - Xarelto for clot prevention HLD - Continue home pitavastatin Dementia - Continue home donepezil History of recurrent UTI, urge incontinence - Continue home methenamine, mirabegron - Pure wick catheter ordered GERD - Continue home dexlansoprazole FEN: heart healthy diet Code status: full code DVT ppx: xarelto Dispo: med/surg telemetry (2) Aortic regurgitation: (3) Atrial fibrillation with RVR: (4) Chronic kidney disease: (5) Dyslipidemia: (6) Gastroesophageal reflux disease: (7) Hypertension: (8) Osteoporosis: (9) PAD (peripheral artery disease): Admission and Anticipated Discharge Date Admission Date: July 10, 2021 Supervising Physician Co-Signing Physician Notes Resident Physician Supervision Note: I independently interviewed and examined the patient and verified the painting history and physical, reviewed labs and image studies and agree with resident Dr. Benitez findings and care plan. Subjective Patient is seen in the chair this morning. No acute events reported overnight. Patient states that her chest pain and shortness of breath have improved and she feels they are back to baseline. Her only complaint is that she urinated so much overnight because she was given Lasix in the ED. Currently not in any pain right now. Reports no new symptoms at this time. Review of Systems Review of Systems: All systems reviewed & are unremarkable except as noted in HPI & below Physical Exam Physical Exam: Constitutional: well-appearing, no acute distress HEENT: NCAT, no conjunctival injection, MMM CV: irregularly irregular rhythm, heart sounds distant, no murmur appreciated, 1+ pitting edema of BL LE. No JVD Resp: CTABL, no wheezes/rales/rhonchi appreciated, no increased work of breathing GI: soft, nondistended, nontender, BS normoactive Neuro: alert, oriented, no focal neurologic deficit appreciated Psych: cooperative, pleasant, appropriate rate/volume/quantity of speech Results & Data Results & Data ([facility]) Vital Signs (Past 12 Hours) Vital Signs Temp Pulse Pulse Resp BP Pulse Ox 07/10/21 16:47 78 07/10/21 15:20 36.8 C 79 19 155/80 H 94 07/10/21 08:55 36.4 C L 79 22 156/78 H 97 07/10/21 07:28 74 22 187/102 H 98 07/10/21 06:00 73 16 153/94 H 99 (1) Hypertension Hypertension type: essential hypertension Qualified Code(s): I10 - Essential (primary) hypertension
[2021-07-10] MEDS: RIVAROXABAN 15 MG TAB PO SCH (17:33)
--- NOTE | 2021-07-10 19:02 | Billing Data ---
Date of Service July 10, 2021 Coding Level of Care Code D/C DAY MANAGEMENT >30 MINS
[2021-07-11] MEDS ORDERED: traMADol HCL 50 MG TABLET PO STA (04:10)
[2021-07-11] MEDS: CEROVITE ADV FORMULA TAB PO SCH (08:07)
[2021-07-11] MEDS: MIRABEGRON ER 25 MG TAB PO SCH (08:07)
[2021-07-11] MEDS: METOPROLOL SUCC 50MG EXT REL TAB PO SCH (08:07)
[2021-07-11] MEDS: CHOLECALCIFEROL 1,000 UNITS 25 MCG TAB PO SCH (08:07)
[2021-07-11] MEDS: METHENAMINE HIPPURATE 1 GM TAB PO SCH (08:07)
[2021-07-11] MEDS: DONEPEZIL HCL 5 MG TAB PO SCH (08:08)
[2021-07-11] MEDS: dilTIAZem HCL 30 MG TAB PO SCH (08:08)
[2021-07-11] MEDS: PANTOprazole 40 MG TAB PO SCH (08:12)
[2021-07-11 08:32] LABS: Basophils # (auto) 0.01 K/uL (0-0.2); Basophils % (auto) 0.2 %; Eosinophils # (auto) 0.05 K/uL (0-0.5); Eosinophils % (auto) 0.9 %; Hematocrit (blood only) 40.4 % (37-47); Hemoglobin 13.3 g/dL (12.0-16.0); Immature Granulocytes # (auto) 0.01 K/uL (0.00-0.02); Immature Granulocytes % (auto) 0.2 %; Lymphocytes # (auto) 2.43 K/uL (1.2-3.4); Lymphocytes % (auto) 44.3 %; Mean Corpuscular Hemoglobin 32.1 pg (25-34); Mean Corpuscular Hgb Conc 32.9 g/dL (32-36); Mean Corpuscular Volume 97.6 fL (80-100); Mean Platelet Volume 13.1 fL (7.4-10.4); Monocytes # (auto) 0.46 K/uL (0.11-0.59); Monocytes % (auto) 8.4 %; Neutrophils # (auto) 2.53 K/uL (1.4-6.5); Platelet Count 121 K/uL (130-400); Platelet Estimate Decreased (Normal); RDW Coefficient of Variation 13.3 % (11.5-14.5); RDW Standard Deviation 47.3 fL (36.4-46.3); Red Blood Count 4.14 M/uL (4.2-5.4); White Blood Count 5.49 K/uL (4.8-10.8)
[2021-07-11 08:33] LABS: BUN Creatinine Ratio 21.1 (10-20); Calcium 9.7 mg/dl (8.5-10.1); Creatinine Clr Calc Pharmacy 46.7 ml/min; Est GFR (African American) 62.9 ml/min; Est GFR (Non-African American) 54.2 ml/min
--- NOTE | 2021-07-11 10:09 | Cardiology Consultation ---
Date of Consultation July 11, 2021 Assessment & Plan (1) Substernal chest pain: (2) Elevated troponin I level: Mrs. Hendrix is an 86 year old female with a history of Hypertension, Dyslipidemia, CKD, Hyperparathyroidism, GERD, Schatzki's Ring, Prior DVT, Osteoarthritis, Osteoporosis, Chronic Venous Insufficiency, Ascending Aortic Aneurysm, PAD, Moderate Aortic Regurgitation, Moderate to Severe Mitral Regurgitation, Mild to Moderate Concentric LVH, and Permanent Atrial Fibrillation (intermittent RVR) whopresents with Acute Systolic CHF, Episode of Angina, and Reduced LV Systolic Function. She was eating dinner on the evening of 07/09/21 when she developed nausea, followed by chest pressure with associated dyspnea. Eventually the nausea improved, but the chest pressure and dyspnea persisted for approximately 1 hour. Patient subsequently had her drive her to the ER for further evaluation. Patient denies any radiation of the chest pressure. Patient has not had any recurrence of this chest discomfort. Patient had also noted increased leg edema for several days leading up to this admission -- left leg > than her right leg. Her work-up shows that her initial Troponin I was normal at 0.04 ng/mL, but subsequent values are abnormal at 0.07 ng/mL and 0.06 ng/mL. EKG's showed atrial fibrillation with controlled V-rate, non-specific ST and T wave abnormalities. CXR showed cardiomegaly with evidence of pulmonary edema. Echocardiogram 07/10/21 shows reduced LV systolic function, LVEF 30% to 35% with global hypokinesis, moderate AI, moderate to severe mitral regurgitation, probably some degree of mitral stenosis, and an elevated RVSP of 30 to 40 mmHg. Her reduced EF is new. Telemetry monitoring shows rate controlled A-fib, however her heart rate was elevated with ambulation last evening. Strongly suspect that her presenting symptoms represent an episode of Angina Pectoris and in all likelihood she has some underlying CAD (calcified coronary arteries on past imaging) -- that may have also represented some demand ischemia to volume overload, and valvular heart disease -- although the minimally elevated troponin I levels are not consistent with her degree of LV systolic dysfunction which I suspect may be due to her underlying valvular heart disease. I discussed this case at length with her as far as further evaluation. With her degree of memory dysfunction, would recommend a conservative treatment going forward as opposed to doing a cardiac catheterization -- unless she were to develop recurrent angina pectoris with medical therapy. Patient's is in agreement with conservative treatment going forward. Recommend the followin. Continue Toprol XL 200 mg daily. 2. Begin Aspirin 81 mg daily. 3. Continue Livalo 4 mg daily. (3) Cardiomyopathy: Her LVEF is 30% to 35% with global hypokinesis, moderate AI, and moderate to severe MR. I suspect that her reduced LV systolic function is related to valvular heart disease and possibly related AFib. Again her minimally elevated troponin I levels would not account for this degree of LV systolic dysfunction. Recommend the followin. Continue Toprol XL 200 mg daily. 2. Stop Diltiazem CD as it is a negative inotrope. 3. Begin Digoxin, load while hospitalized to assure adequate rate control and this will also be used for its positive inotrope property. (4) Valvular heart disease: (5) Atrial fibrillation, permanent: Patient is in permanent atrial fibrillation, her heart rate appears to be well controlled for the most part although she does go fast at times with ambulation. Historically, on cardiac monitoring her average heart rate is 70 beats per minute in atrial fibrillation. 1. Continue Toprol XL 200 mg daily. 2. Stop Diltiazem CD as it is a negative inotrope. 3. Begin Digoxin, load while hospitalized to assure adequate rate control and this will also be used for its positive inotrope property. 4. Continue Xarelto 15 mg daily for thromboembolic prophylaxis. History of Present Illness Reason for Consultation: -- Chest pain with abnormal Troponin I level. -- Reduced LV systolic function. Requesting Physician: Alex Salinas DO Attending Physician: Gabriel Sánchez MD History of Present Illness Mrs. Hendrix is an 86 year old female with a history of Hypertension, Dyslipidemia, CKD, Hyperparathyroidism, GERD, Schatzki's Ring, Prior DVT, Osteoarthritis, Osteoporosis, Chronic Venous Insufficiency, Ascending Aortic Aneurysm, PAD, Moderate Aortic Regurgitation, Moderate to Severe Mitral Regurgitation, Mild to Moderate Concentric LVH, and Permanent Atrial Fibrillation (intermittent RVR) whowas eating dinner on the evening of 07/09/21 when she developed nausea, followed by chest pressure with associated dyspnea. Eventually the nausea improved, but the chest pressure and dyspnea persisted for approximately 1 hour. Patient subsequently had her drive her to the ER for further evaluation. Patient denies any radiation of the chest pressure. Patient has not had any recurrence of this chest discomfort. Patient had also noted increased leg edema for several days leading up to this admission -- left leg > than her right leg. Her work-up shows that her initial Troponin I was normal at 0.04 ng/mL, but subsequent values are abnormal at 0.07 ng/mL and 0.06 ng/mL. EKG's showed atrial fibrillation with controlled V-rate, non-specific ST and T wave abnormalities. CXR showed cardiomegaly with evidence of pulmonary edema. Echocardiogram 07/10/21 shows reduced LV systolic function, LVEF 30% to 35% with global hypokinesis, moderate AI, moderate to severe mitral regurgitation, probably some degree of mitral stenosis, and an elevated RVSP of 30 to 40 mmHg. Her reduced EF is new. Telemetry monitoring shows rate controlled A-fib, however her heart rate was elevated with ambulation last evening. At the present time, the patient is being seen in [id number]. She denies any recurrent chest pressure or nausea. She still notes mild dyspnea but is approaching her baseline. Pro BNP is pending. She has had the following studies: 1. Echo 05/14/12: Normal LV size with mildly reduced systolic function. EF 45%- 50%. Mild global hypokinesis. Type I diastolic dysfunction. Mild LA dilation. Mild MR. Mild AI. Mildly dilated ascending aorta (3.9 cm). 2. Echo 03/28/13: Normal LV size with low normal systolic function. EF 50%-55%. No clear-cut regional wall motion abnormalities. 1 diastolic dysfunction. Mild RV dilation with normal systolic function. Mild RA dilation. Mild AI. Mild MR. 3. Echo 04/17/2014: Normal LV systolic function. EF 55%-60%. Mild LVH. Mild AI. Mild to moderate MR. Mildly dilated ascending aorta, 4.1 cm. 4. CTA 09/23/2015: Dilated ascending aorta 4.3 cm. No evidence for aortic dissection. No pulmonary embolus visualized. 5. Echo 03/28/2016: Normal LV size with low-normal systolic function. EF 50%- 55%. No definite regional wall motion abnormalities. Type 1 diastolic dysfunction. Mild biatrial dilation. Mild AI. Mild MR. Ascending aorta 4.3 cm. 6. Echo 02/01/2017: Mildly dilated left ventricle with normal wall motion. EF 55%-60%. Mild LVH. Moderate left atrial dilation. Mild right atrial dilation. Mild AI. Mild to moderate MR. Ascending aorta 4.3 cm. RVSP 33. 7. Event monitor 03/21/2018 to 04/19/2018: Sinus rhythm. No symptoms. No arrhythmia. 8. Echo 04/08/2018: Normal LV size, wall motion, systolic function. EF 55%- 60%. No LVH. Type 2 diastolic dysfunction. Severe left atrial dilation. Sclerotic aortic valve with mild regurgitation. Mild MR. RVSP 30. Ascending aorta 4.5 cm. 9. Dobutamine Stress Echo 05/05/2019: Negative dobutamine stress echo and EKG for ischemia 85% MPHR. No chest pain. EF 55%-60%. Normal wall motion. Mild to moderate LVH. Mild AI. Mild MR. Ascending aorta 4.3 cm. Normal RVSP. Allergies Allergy/AdvReac Type Severity Reaction Status Date / Time atorvastatin AdvReac Intermediate liver Verified 07/10/21 01:19 enzymes elevate lisinopril AdvReac Unknown Verified 07/10/21 01:19 Home Medications Medication Instructions Recorded Confirmed Type cholecalciferol (vitamin D3) 25 1,000 units PO QAM cap 02/20/19 07/10/21 History mcg (1,000 unit) capsule multivitamin (Multiple Vitamins) 1 tab PO DAILY 02/20/19 07/10/21 History polyethylene glycol 3350 17 gram 17 g PO TID PRN #30 ea 05/04/20 07/10/21 Rx oral powder packet (Miralax) dexlansoprazole 60 mg 60 mg PO QAM #90 cap 07/01/20 07/10/21 Rx capsule,biphase delayed release [id number]-[id number]-vtmgywct 1 tab PO BID PRN #30 tab 01/06/21 07/10/21 Rx 50 mg-325 mg-40 mg tablet pitavastatin calcium 4 mg tablet 4 mg PO DAILYBB 02/08/21 07/10/21 History (Livalo) sennosides 8.6 mg-docusate sodium 1 tab-cap PO BID PRN #30 tab 02/11/21 07/10/21 Rx 50 mg tablet (Senna Plus) diltiazem HCl 30 mg tablet 30 mg PO BID #120 tab 02/17/21 07/10/21 Rx furosemide 20 mg tablet (Lasix) 20 mg PO DAILY PRN #90 tab 03/08/21 07/10/21 Rx rivaroxaban 15 mg tablet (Xarelto) 15 mg PO QDD #30 tab 03/08/21 07/10/21 Rx ondansetron 4 mg disintegrating 4 mg PO Q8H PRN #30 tab 03/10/21 07/10/21 Rx tablet methenamine hippurate 1 gram tablet 1 g PO QAM tab 03/31/21 07/10/21 History mirabegron 25 mg tablet,extended 25 mg PO DAILY tab 03/31/21 07/10/21 History release 24 hr metoprolol succinate 200 mg 200 mg PO DAILY #90 tab 04/29/21 07/10/21 Rx tablet,extended release 24 hr pregabalin 100 mg capsule 100 mg PO TID PRN #90 cap 05/26/21 07/10/21 Rx donepezil 5 mg tablet 5 mg PO DAILY #30 tab 06/16/21 07/10/21 Rx Patient History Medical History Altered mental status Aortic regurgitation Arthritis of both feet Atrial fibrillation Atrial fibrillation with rapid ventricular response Chronic headache disorder Degenerative arthritis of knee, bilateral Gastroenteritis High cholesterol History of deep venous thrombosis Hypertension Hypokalemia Left kidney mass [facility] Neuropathy Osteoarthritis Osteoporosis PAD (peripheral artery disease) Popliteal cyst Posterior tibial tendon dysfunction Thoracic ascending aortic aneurysm Venous insufficiency Surgical History History of back surgery History of cholecystectomy History of hysterectomy History of tubal ligation Family History Mother Breast cancer Hypertension Coronary heart disease Father Coronary heart disease Myocardial infarction Sister Breast cancer Colorectal cancer Ovarian cancer Denies family history of Prostate cancer Social History Smoking Status: Never smoker Hx Alcohol Use: Yes Alcohol type: wine Hx Substance Use: No Preferred Language: Mexican Communication Ability: Effective Visual Impairment: Limited Hearing Ability: Normal Community Engagement Representative Required: No Beliefs That Will Affect Care: Spiritual Spiritual Healthcare Practices: baptist marital status: Current Living Situation: Spouse Current Living Situation Comment: verbalizes he is unable to take care of pt. current occupational status: retired current occupation: part-time How many Children do You have: 3 Feels Safe at Home: Yes Childhood Exposure to Second-Hand Smoke: No caffeine: No Dental Care, Regularly: Yes Physical Activity Frequency: Does not Exercise Seatbelt Use: always Sunscreen Use: Yes Assistive Devices: Cane and Glasses Physical Exam Physical Exam: GENERAL: Patient in no acute distress, lying semi-recumbent in her bed.. HEENT: Head is atraumatic, normocephalic. EOM's intact. Facies symmetric. No perioral cyanosis. NECK: No JVD. JVP is elevated. Carotid upstrokes are + 2 bilaterally. No bruits are noted. CHEST/LUNGS: Crackles in bilateral bases. No wheezes. CVS: S1 and S2 are irregularly irregular with an apical rate of 78 bpm. No obvious murmurs, gallops, or rubs. PMI is nonpalpable. No lifts, heaves, or thrills. No abdominal aortic or renal bruits. ABDOMINAL EXAM: Bowel sounds are present. No masses, organomegaly, or tenderness. EXTREMITIES: No clubbing or cyanosis. +1 pitting edema of the left leg. Trace pitting edema of the right leg. Intact radial pulses bilaterally. NEUROLOGIC EXAM: Patient is awake, alert, and interactive. Pleasant and cooperative. Speech is clear. Normal movement in all 4 extremities. Telemetry: -- A-fib with controlled ventricular response rate. Results & Data ([facility]) Vital Signs (Past 12 Hours) Vital Signs Temp Pulse Pulse Resp BP Pulse Ox 07/11/21 08:00 63 07/11/21 07:25 36.4 C L 69 18 146/81 H 96 07/11/21 03:31 36.4 C L 78 20 135/79 92 07/10/21 22:42 36.6 C 64 20 110/55 L 92 07/10/21 22:30 56 L Laboratory Results Laboratory Results - last 24 hr 07/10/21 07/11/21 07/11/21 14:27 07:21 07:21 WBC 5.49 RBC 4.14 L Hgb 13.3 Hct 40.4 MCV 97.6 MCH 32.1 MCHC 32.9 RDW Std Deviation 47.3 H RDW Coeff of Rudy 13.3 Plt Count 121 L MPV 13.1 H Immature Gran % (Auto) 0.2 Neut % (Auto) 46.0 Lymph % (Auto) 44.3 [place] % (Auto) 8.4 Eos % (Auto) 0.9 Baso % (Auto) 0.2 Neut # (Auto) 2.53 Lymph # (Auto) 2.43 [place] # (Auto) 0.46 Eos # (Auto) 0.05 Baso # (Auto) 0.01 Immature Gran # (Auto) 0.01 Platelet Estimate Decreased L Sodium 141 Potassium Chloride 106 Carbon Dioxide 30 Anion Gap 5 BUN 20 Creatinine 0.95 Est Cr Clr Drug Dosing 46.7 Est GFR ( Amer) 62.9 Est GFR (Non-Af Amer) 54.2 BUN/Creatinine Ratio 21.1 H Glucose 86 Calcium 9.7 Troponin I 0.06 H* 07/11/21 08:43 WBC RBC Hgb Hct MCV MCH MCHC RDW Std Deviation RDW Coeff of Rudy Plt Count MPV Immature Gran % (Auto) Neut % (Auto) Lymph % (Auto) [place] % (Auto) Eos % (Auto) Baso % (Auto) Neut # (Auto) Lymph # (Auto) [place] # (Auto) Eos # (Auto) Baso # (Auto) Immature Gran # (Auto) Platelet Estimate Sodium Potassium 3.6 Chloride Carbon Dioxide Anion Gap BUN Creatinine Est Cr Clr Drug Dosing Est GFR ( Amer) Est GFR (Non-Af Amer) BUN/Creatinine Ratio Glucose Calcium Troponin I Diagnostic Findings CXR 07/10/21: No lines and tubes are seen. Cardiomegaly is noted. There is prominence and cephalization of the vasculature with Heath B lines seen. There is a left retrocardiac opacity. No right effusion, no pneumothorax is seen. A left effus ion cannot be entirely excluded. IMPRESSION: -- Moderate pulmonary edema. Left retrocardiac opacity may represent atelectasis, pneumonia, aspiration, and/or layering effusion. Medications Administered Medications cholecalciferol (vitamin D3) 25 mcg (1,000 unit) capsule 1,000 units PO QAM cap 02/20/19 [History Confirmed 07/10/21] multivitamin (Multiple Vitamins) 1 tab PO DAILY 02/20/19 [History Confirmed 07/10/21] polyethylene glycol 3350 17 gram oral powder packet (Miralax) 17 g PO TID PRN #30 ea 05/04/20 [Rx Confirmed 07/10/21] dexlansoprazole 60 mg capsule,biphase delayed release 60 mg PO QAM #90 cap 07/01/20 [Rx Confirmed 07/10/21] yjkhjkuxvy-lztkwxeccbojb-rnzxdkqy 50 mg-325 mg-40 mg tablet 1 tab PO BID PRN #30 tab 01/06/21 [Rx Confirmed 07/10/21] pitavastatin calcium 4 mg tablet (Livalo) 4 mg PO DAILYBB 02/08/21 [History Confirmed 07/10/21] sennosides 8.6 mg-docusate sodium 50 mg tablet (Senna Plus) 1 tab-cap PO BID PRN #30 tab 02/11/21 [Rx Confirmed 07/10/21] diltiazem HCl 30 mg tablet 30 mg PO BID #120 tab 02/17/21 [Rx Confirmed 07/10/21] furosemide 20 mg tablet (Lasix) 20 mg PO DAILY PRN #90 tab 03/08/21 [Rx Confirmed 07/10/21] rivaroxaban 15 mg tablet (Xarelto) 15 mg PO QDD #30 tab 03/08/21 [Rx Confirmed 07/10/21] ondansetron 4 mg disintegrating tablet 4 mg PO Q8H PRN #30 tab 03/10/21 [Rx Conf irmed 07/10/21] methenamine hippurate 1 gram tablet 1 g PO QAM tab 03/31/21 [History Confirmed 07/10/21] mirabegron 25 mg tablet,extended release 24 hr 25 mg PO DAILY tab 03/31/21 [History Confirmed 07/10/21] metoprolol succinate 200 mg tablet,extended release 24 hr 200 mg PO DAILY #90 tab 04/29/21 [Rx Confirmed 07/10/21] pregabalin 100 mg capsule 100 mg PO TID PRN #90 cap 05/26/21 [Rx Confirmed 07/10/21] donepezil 5 mg tablet 5 mg PO DAILY #30 tab 06/16/21 [Rx Confirmed 07/10/21] Home Medications Acetaminophen (Acetaminophen 325 Mg Tab) 650 mg PO Q4H PRN PRN Reason: Pain or Fever Stop: 08/09/21 08:37 Al Hydrox/Mg Hydrox/Simethicone (Aluminum/Magnesium Susp 30 Ml Udc) 15 ml PO Q4H PRN PRN Reason: Dyspepsia Stop: 08/09/21 08:37 Diltiazem HCl (Diltiazem Hcl 30 Mg Tab) 30 mg PO BID [facility] Stop: 08/09/21 08:59 Last Admin: 07/11/21 08:08 Dose: 30 mg Documented by: Donepezil HCl (Donepezil Hcl 5 Mg Tab) 5 mg PO DAILY JAXON Stop: 08/09/21 08:59 Last Admin: 07/11/21 08:08 Dose: 5 mg Documented by: Furosemide (Furosemide 20 Mg Tab) 20 mg PO DAILY PRN PRN Reason: edema, weight gain, shortness of breath Stop: 08/09/21 05:16 Last Admin: 07/10/21 09:37 Dose: 20 mg Documented by: Magnesium Hydroxide (Magnesium Hydroxide Susp 30 Ml Udc) 30 ml PO Q12H PRN PRN Reason: Constipation Stop: 08/09/21 08:37 Methenamine Hippurate (Methenamine Hippurate 1 Gm Tab) 1 gm PO QAM [facility] Stop: 08/09/21 08:59 Last Admin: 07/11/21 08:07 Dose: 1 gm Documented by: Metoprolol Succinate (Metoprolol Succ 50mg Ext Rel Tab) 200 mg PO DAILY [facility] Stop: 08/09/21 08:59 Last Admin: 07/11/21 08:07 Dose: 200 mg Documented by: Mirabegron (Mirabegron Er 25 Mg Tab) 25 mg PO DAILY [facility] Stop: 08/09/21 08:59 Last Admin: 07/11/21 08:07 Dose: 25 mg Documented by: Miscellaneous (Livalo~Order Awaiting Action) 1 ea N/A QS [facility] Stop: 08/09/21 07:59 Last Admin: 07/11/21 08:07 Dose: Not Given Documented by: Multivitamins/Minerals (Cerovite Adv Formula Tab) 1 tab PO DAILY [facility] Stop: 08/09/21 08:59 Last Admin: 07/11/21 08:07 Dose: 1 tab Documented by: Nitroglycerin (Nitroglycerin Sl 0.4 Mg/Tab Tab) 0.4 mg SL UD PRN PRN Reason: Chest Pain Stop: 08/09/21 05:16 Ondansetron HCl (Ondansetron 4 Mg Od Tab) 4 mg PO Q8H PRN PRN Reason: nausea and vomiting Stop: 08/09/21 05:16 Last Admin: 07/10/21 22:56 Dose: 4 mg Documented by: Pantoprazole Sodium (Pantoprazole 40 Mg Tab) 40 mg PO QAM [facility] Stop: 08/09/21 08:59 Last Admin: 07/11/21 08:12 Dose: 40 mg Documented by: Polyethylene Glycol (Polyethylene (Miralax) 17 Gm Pack) 17 gm PO TID PRN PRN Reason: constipation Stop: 08/09/21 05:16 Pregabalin (Pregabalin 100 Mg Cap) 100 mg PO TID PRN PRN Reason: neuropathy Stop: 08/09/21 05:16 Rivaroxaban (Rivaroxaban 15 Mg Tab) 15 mg PO QDD [facility] Stop: 08/09/21 16:29 Last Admin: 07/10/21 17:33 Dose: 15 mg Documented by: Senna/Docusate Sodium (Docusate Sodium/Senna 50/8.6mg Tab) 1 tab PO BID PRN PRN Reason: constipation Stop: 08/09/21 05:16 Vitamin D (Cholecalciferol 1,000 Units 25 Mcg Tab) 1,000 units PO [facility] Stop: 08/09/21 08:59 Last Admin: 07/11/21 08:07 Dose: 1,000 units Documented by: PG Care Time/CCT Total # of Minutes Spent Total Time Spent with Patient: Total time spent is greater than 50% in coordination of care (as documented) at patient's floor/unit and/or counseling patient: Coding Level of Care Code 10225 Office/OBS Consult Lvl 4 Diagnoses Substernal chest pain R07.2 Cardiomyopathy I42.9 Elevated troponin I level R77.8 Valvular heart disease I38 Atrial fibrillation, permanent I48.21
--- NOTE | 2021-07-11 11:11 | Hospitalist Progress Note ---
Date of Service July 11, 2021 Assessment & Plan (1) Chest pain: Plan: 86yo female with a history of AF with RVR (on xarelto), aortic regurgitation, HTN, HLD, GERD, osteoporosis, and arthritis presents with chest pressure and shortness of breath. Systolic heart failure -Echocardiogram- declining EF 30-35% from 2019 EF 55-60% and increased severe mitral regurgitation, global hypokinesis -I's/O's, daily weights, continue diuresis with Lasix as needed -Continue home metoprolol, initiated Entresto -Cardiology consulted- recommended digoxin for rate control + positive inotropic effect -Digoxin load started- 0.5 mg, then 0.25 mg 6 hours after, 0.25 mg 6 hours after. Digoxin level ordered for 8 hours after final loading dose. Pt to be discharged on digoxin 0.25 mg as maintenance therapy Atrial fibrillation, persistent - Currently rate-controlled with metoprolol 200mg daily, home medication also includes diltiazem - Continue home Xarelto - Cardiology consulted- recommended d/c diltiazem given negative inotropy, continue metoprolol, initiate digoxin as above Chest pain - Differential includes ACS, afib, anxiety - Symptoms improved with nitroglycerin in ED - EKG shows rate-controlled atrial fibrillation without ischemic change - Initial troponin negative; repeat troponin was positive at 0.07 with the following reading 0.06 - Cardiology consulted- likely angina pectoris with underlying CAD, recommended begin ASA daily. Avoid catheterization and continue conservative treatment given patient's memory dysfunction HLD - Continue home pitavastatin Dementia - Continue home donepezil History of recurrent UTI, urge incontinence - Continue home methenamine, mirabegron - Pure wick catheter ordered GERD - Continue home dexlansoprazole FEN: heart healthy diet Code status: full code DVT ppx: xarelto Dispo: med/surg telemetry (2) Aortic regurgitation: (3) Atrial fibrillation with RVR: (4) Chronic kidney disease: (5) Dyslipidemia: (6) Gastroesophageal reflux disease: (7) Hypertension: (8) Osteoporosis: (9) PAD (peripheral artery disease): Admission and Anticipated Discharge Date Admission Date: July 10, 2021 Supervising Physician Co-Signing Physician Notes I personally examined the patient and verified all painting points of history and exam, discussed case, and agree with decision making with Dr Ahmad feeling reasonably ok no further CP breathing Ok vitals noted nad heent nc at mmm breathing unlaobred no accessory muscles good effort skin on rashes no pallor or icterus worsening cardiomyopathy - mixed CHF - systolic w low EF, diastolic w valvular disease - but now on room air. trop - demand ischemia, possibly mild angina - for med management. stop dilt since low EF. start entresto for same // afterload reduction. dig per cardiology. already anticoagulated on xarelto. otherwise as above Subjective Pt feels well overall, denying chest pain or palpitations, no shortness of breath. No acute events overnight, no acute concerns at this time. Review of Systems Review of Systems: All systems reviewed & are unremarkable except as noted in Subjective Physical Exam Physical Exam: GENERAL: No acute distress, lying semi-recumbent in her bed.. HEENT:NCAT, EOMI, moist mucous membranes NECK: No JVD, carotid upstrokes are + 2 bilaterally, no bruits LUNGS: Largely clear lung sounds, crackles in bilateral bases, no wheezes CV: Irregularly irregular, no murmurs, S1, S2 appreciated ABDOMEN: Soft, nontender, nondistended EXTREMITIES: No clubbing or cyanosis b/l, +1 pitting edema of LLE, trace edema of RLE NEURO: no gross focal motor or sensory deficits Results & Data Results & Data ([facility]) Vital Signs (Past 12 Hours) Vital Signs Temp Pulse Pulse Resp BP Pulse Ox 07/11/21 08:00 63 07/11/21 07:25 36.4 C L 69 18 146/81 H 96 07/11/21 03:31 36.4 C L 78 20 135/79 92 Resident Activity Tracking Resident Involvement: Resident Care Provided Care Provided: Adult Hospital Medicine (1) Hypertension Hypertension type: essential hypertension Qualified Code(s): I10 - Essential (primary) hypertension
[2021-07-11] MEDS: VALSARTAN/SACUBITRIL 51/49 MG TAB PO SCH ×2 (12:19→20:17)
[2021-07-11] MEDS ORDERED: DIGOXIN 0.25 MG TAB PO ONE (14:52)
[2021-07-11] MEDS: RIVAROXABAN 15 MG TAB PO SCH (15:21)
[2021-07-11] MEDS: PREGABALIN 100 MG CAP PO PRN (15:26)
--- NOTE | 2021-07-11 16:31 | Billing Data ---
Date of Service July 11, 2021 Coding Level of Care Code 56164 Subseq Hosp Care Lvl 3
[2021-07-11] MEDS ORDERED: KETOROLAC TROMETHAMINE 15 MG/ML VIAL IV ONE (19:57)
[2021-07-11] MEDS ORDERED: DIGOXIN 0.125 MG TAB PO ONE (21:00)
--- NOTE | 2021-07-11 22:12 | Electrocardiogram Report ---
Test Reason : Blood Pressure : / mmHG Vent. Rate : 089 BPM Atrial Rate : 375 BPM P-R Int : 000 ms QRS Dur : 090 ms QT Int : 350 ms P-R-T Axes : 000 022 006 degrees QTc Int : 425 ms Atrial fibrillation Nonspecific ST and T wave abnormality Abnormal ECG When compared with ECG of 10-MAR-2021 12:30, Nonspecific T wave abnormality, improved in Anterolateral leads Confirmed by Gabirel Sánchez ([id number]) on 07/11/2021 10:12:02 PM Referred By: REFERRED SELF Confirmed By:Gabriel Sánchez
--- NOTE | 2021-07-11 22:48 | Electrocardiogram Report ---
Test Reason : Blood Pressure : / mmHG Vent. Rate : 066 BPM Atrial Rate : 159 BPM P-R Int : 000 ms QRS Dur : 088 ms QT Int : 412 ms P-R-T Axes : 000 011 -46 degrees QTc Int : 431 ms Atrial fibrillation Nonspecific ST and T wave abnormality Abnormal ECG When compared with ECG of 09-JUL-2021 23:57, (unconfirmed) Nonspecific T wave abnormality, worse in Anterolateral leads Confirmed by Gabriel Sánchez ([id number]) on 07/11/2021 10:47:43 PM Referred By: REFERRED SELF Confirmed By:Gabriel Sánchez
[2021-07-12] MEDS: PREGABALIN 100 MG CAP PO PRN (01:52)
[2021-07-12] MEDS ORDERED: DIGOXIN 0.125 MG TAB PO ONE (03:00)
[2021-07-12] MEDS: ONDANSETRON 4 MG OD TAB PO PRN (07:46)
[2021-07-12] MEDS: CHOLECALCIFEROL 1,000 UNITS 25 MCG TAB PO SCH (07:47)
[2021-07-12] MEDS: METOPROLOL SUCC 50MG EXT REL TAB PO SCH (07:47)
[2021-07-12] MEDS: DONEPEZIL HCL 5 MG TAB PO SCH (07:47)
[2021-07-12] MEDS: METHENAMINE HIPPURATE 1 GM TAB PO SCH (07:47)
[2021-07-12] MEDS: CEROVITE ADV FORMULA TAB PO SCH (07:48)
[2021-07-12] MEDS: VALSARTAN/SACUBITRIL 51/49 MG TAB PO SCH (07:48)
[2021-07-12] MEDS: PANTOprazole 40 MG TAB PO SCH (07:48)
[2021-07-12] MEDS: MIRABEGRON ER 25 MG TAB PO SCH (07:48)
[2021-07-12 07:52] LABS: Hematocrit (blood only) 44.4 % (37-47); Hemoglobin 14.9 g/dL (12.0-16.0); Mean Corpuscular Hemoglobin 32.3 pg (25-34); Mean Corpuscular Hgb Conc 33.6 g/dL (32-36); Mean Corpuscular Volume 96.3 fL (80-100); Platelet Count 139 K/uL (130-400); RDW Coefficient of Variation 13.2 % (11.5-14.5); RDW Standard Deviation 46.5 fL (36.4-46.3); Red Blood Count 4.61 M/uL (4.2-5.4); White Blood Count 5.62 K/uL (4.8-10.8)
[2021-07-12 08:12] LABS: BUN Creatinine Ratio 23.2 (10-20); Calcium 10.1 mg/dl (8.5-10.1); Creatinine Clr Calc Pharmacy 53.8 ml/min; Est GFR (African American) 75.1 ml/min; Est GFR (Non-African American) 64.8 ml/min; Potassium 3.7 mmol/L (3.5-5.1)
[2021-07-12] MEDS ORDERED: ASPIRIN 81 MG ECTAB PO SCH (09:00)
[2021-07-12] MEDS ORDERED: POTASSIUM CHLORIDE CRTAB 20 MEQ TABCR PO STA (09:28)
--- NOTE | 2021-07-12 09:46 | Cardiology Progress Note ---
Date of Service July 12, 2021 Assessment & Plan (1) Substernal chest pain: (2) Elevated troponin I level: Plan: Mrs. Hendrix is an 86 year old female with a history of Hypertension, Dyslipidemia, CKD, Hyperparathyroidism, GERD, Schatzki's Ring, Prior DVT, Osteo arthritis, Osteoporosis, Chronic Venous Insufficiency, Ascending Aortic Aneurysm, PAD, Moderate Aortic Regurgitation, Moderate to Severe Mitral Regurgitation, Mild to Moderate Concentric LVH, and Permanent Atrial Fibrillation (intermittent RVR) whopresents with Acute Systolic CHF, Episode of Angina, and Reduced LV Systolic Function. She was eating dinner on the evening of 07/09/21 when she developed nausea, followed by chest pressure with associated dyspnea. Eventually the nausea improved, but the chest pressure and dyspnea persisted for approximately 1 hour. Patient subsequently had her drive her to the ER for further evaluation. Patient denies any radiation of the chest pressure. Patient has not had any recurrence of this chest discomfort. Patient had also noted increased leg edema for several days leading up to this admission -- left leg > than her right leg. Her work-up shows that her initial Troponin I was normal at 0.04 ng/mL, but subsequent values are abnormal at 0.07 ng/mL and 0.06 ng/mL. EKG's showed atrial fibrillation with controlled V-rate, non-specific ST and T wave abnormalities. CXR showed cardiomegaly with evidence of pulmonary edema. Echocardiogram 07/10/21 shows reduced LV systolic function, LVEF 30% to 35% with global hypokinesis, moderate AI, moderate to severe mitral regurgitation, probably some degree of mitral stenosis, and an elevated RVSP of 30 to 40 mmHg. Her reduced EF is new. Telemetry monitoring shows rate controlled A-fib, however her heart rate was elevated with ambulation last evening. Strongly suspect that her presenting symptoms represent an episode of Angina Pectoris and in all likelihood she has some underlying CAD (calcified coronary arteries on past imaging) -- that may have also represented some demand ischemia to volume overload, and valvular heart disease -- although the minimally elevated troponin I levels are not consistent with her degree of LV systolic dysfunction which I suspect may be due to her underlying valvular heart disease. I discussed this case at length with her yesterday as far as further evaluation. With her degree of memory dysfunction, would recommend a conservative treatment going forward as opposed to doing a cardiac catheterization -- unless she were to develop recurrent angina pectoris with medical therapy. Patient's is in agreement with conservative treatment going forward. Recommend the followin. Continue Toprol XL 200 mg daily. 2. Begin Aspirin 81 mg daily. 3. Continue Livalo 4 mg daily. (3) Cardiomyopathy: Plan: Her LVEF is 30% to 35% with global hypokinesis, moderate AI, and moderate to severe MR. I suspect that her reduced LV systolic function is related to valv ular heart disease and possibly related AFib. Again her minimally elevated troponin I levels would not account for this degree of LV systolic dysfunction. Recommend the followin. Continue Toprol XL 200 mg daily. 2. Remain off of Diltiazem CD as it is a negative inotrope. 3. Continue Digoxin as per Dr. Waldrop. 4. Continue Entresto 49-51 mg b.i.d.. 5. Follow-up with [facility] within 1 to 2 weeks, will likely titrate Entresto at that visit. 6. Repeat Echocardiogram approximately 3 months after being on maximum tolerated doses. (4) Valvular heart disease: Plan: Patient has moderate AI, and moderate to severe MR. -- Manage as outlined above. (5) Atrial fibrillation, permanent: Plan: Patient is in permanent atrial fibrillation, her heart rate appears to be well controlled on Toprol XL 200 mg daily and Digoxin.. Historically, on cardiac monitoring her average heart rate is 70 beats per minute in atrial fibrillation. 1. Continue Toprol XL 200 mg daily. 2. Remain off of Diltiazem CD as it is a negative inotrope. 3. Continue Digoxin, received IV load dose yesterday, convert to oral. 4. Continue Xarelto 15 mg daily for thromboembolic prophylaxis. Admission and Anticipated Discharge Date Admission Date: July 10, 2021 Subjective Mrs. Hendrix is still noticing some intermittent chest pain but she insists it's because she is anxious. She denies any radiation of her chest discomfort and denies any associated symptoms. She specifically denies any associated nausea, vomiting, or diaphoresis. Her breathing is approaching baseline. Review of Systems Review of Systems: 10 point ROS completed and negative with the exception of what is mentioned in the HPI. Physical Exam Physical Exam: GENERAL: Patient in no acute distress, lying semi-recumbent in her bed.. HEENT: Head is atraumatic, normocephalic. EOM's intact. Facies symmetric. No perioral cyanosis. NECK: No JVD. JVP is elevated. Carotid upstrokes are + 2 bilaterally. No bruits are noted. CHEST/LUNGS: Crackles in bilateral bases. No wheezes. CVS: S1 and S2 are irregularly irregular with an apical rate of 64 bpm. No obvious murmurs, gallops, or rubs. PMI is nonpalpable. No lifts, heaves, or thrills. No abdominal aortic or renal bruits. ABDOMINAL EXAM: Bowel sounds are present. No masses, organomegaly, or tenderness. EXTREMITIES: No clubbing or cyanosis. Trace pitting edema of the left leg. Trace pitting edema of the right leg. Intact radial pulses bilaterally. NEUROLOGIC EXAM: Patient is awake, alert, and interactive. Pleasant and cooperative. Speech is clear. Normal movement in all 4 extremities. Telemetry: -- A-fib with controlled ventricular response rate -- rates in the 50's overnight, HR is currently 60 to 65 bpm.. Results & Data ([facility]) Vital Signs (Past 12 Hours) Vital Signs Temp Pulse Pulse Resp BP Pulse Ox 07/12/21 07:00 36.4 C L 65 18 119/76 92 07/12/21 03:15 36.4 C L 69 18 139/82 91 07/12/21 02:46 52 L 07/11/21 23:53 65 07/11/21 22:31 36.4 C L 67 18 159/96 H 93 Laboratory Results Laboratory Results - last 24 hr 07/11/21 07/12/21 07/12/21 10:45 07:08 07:08 WBC 5.62 RBC 4.61 Hgb 14.9 Hct 44.4 MCV 96.3 MCH 32.3 MCHC 33.6 RDW Std Deviation 46.5 H RDW Coeff of Rudy 13.2 Plt Count 139 MPV 13.0 H Sodium 138 Potassium 3.7 Chloride 105 Carbon Dioxide 24 Anion Gap 9 BUN 19 Creatinine 0.82 Est Cr Clr Drug Dosing 53.8 Est GFR ( Amer) 75.1 Est GFR (Non-Af Amer) 64.8 BUN/Creatinine Ratio 23.2 H Glucose 93 Calcium 10.1 B-Natriuretic Peptide 295 H Medications Administered Medications cholecalciferol (vitamin D3) 25 mcg (1,000 unit) capsule 1,000 units PO QAM cap 02/20/19 [History Confirmed 07/10/21] multivitamin (Multiple Vitamins) 1 tab PO DAILY 02/20/19 [History Confirmed 07/10/21] polyethylene glycol 3350 17 gram oral powder packet (Miralax) 17 g PO TID PRN #30 ea 05/04/20 [Rx Confirmed 07/10/21] dexlansoprazole 60 mg capsule,biphase delayed release 60 mg PO QAM #90 cap 07/01/20 [Rx Confirmed 07/10/21] cntisqrtaj-xciabmhwehhkw-hhuagezb 50 mg-325 mg-40 mg tablet 1 tab PO BID PRN #30 tab 01/06/21 [Rx Confirmed 07/10/21] pitavastatin calcium 4 mg tablet (Livalo) 4 mg PO DAILYBB 02/08/21 [History Confirmed 07/10/21] sennosides 8.6 mg-docusate sodium 50 mg tablet (Senna Plus) 1 tab-cap PO BID PRN #30 tab 02/11/21 [Rx Confirmed 07/10/21] diltiazem HCl 30 mg tablet 30 mg PO BID #120 tab 02/17/21 [Rx Confirmed 07/10/21] furosemide 20 mg tablet (Lasix) 20 mg PO DAILY PRN #90 tab 03/08/21 [Rx Confirmed 07/10/21] rivaroxaban 15 mg tablet (Xarelto) 15 mg PO QDD #30 tab 03/08/21 [Rx Confirmed 07/10/21] ondansetron 4 mg disintegrating tablet 4 mg PO Q8H PRN #30 tab 03/10/21 [Rx Confirmed 07/10/21] methenamine hippurate 1 gram tablet 1 g PO QAM tab 03/31/21 [History Confirmed 07/10/21] mirabegron 25 mg tablet,extended release 24 hr 25 mg PO DAILY tab 03/31/21 [History Confirmed 07/10/21] metoprolol succinate 200 mg tablet,extended release 24 hr 200 mg PO DAILY #90 tab 04/29/21 [Rx Confirmed 07/10/21] pregabalin 100 mg capsule 100 mg PO TID PRN #90 cap 05/26/21 [Rx Confirmed 07/10/21] donepezil 5 mg tablet 5 mg PO DAILY #30 tab 06/16/21 [Rx Confirmed 07/10/21] Home Medications Acetaminophen (Acetaminophen 325 Mg Tab) 650 mg PO Q4H PRN PRN Reason: Pain or Fever Stop: 08/09/21 08:37 Al Hydrox/Mg Hydrox/Simethicone (Aluminum/Magnesium Susp 30 Ml Udc) 15 ml PO Q4H PRN PRN Reason: Dyspepsia Stop: 08/09/21 08:37 Aspirin (Aspirin 81 Mg Ectab) 81 mg PO DAILY [facility] Stop: 08/11/21 08:59 Last Admin: 07/12/21 07:47 Dose: 81 mg Documented by: Donepezil HCl (Donepezil Hcl 5 Mg Tab) 5 mg PO DAILY [facility] Stop: 08/09/21 08:59 Last Admin: 07/12/21 07:47 Dose: 5 mg Documented by: Furosemide (Furosemide 20 Mg Tab) 20 mg PO DAILY PRN PRN Reason: edema, weight gain, shortness of breath Stop: 08/09/21 05:16 Last Admin: 07/10/21 09:37 Dose: 20 mg Documented by: Magnesium Hydroxide (Magnesium Hydroxide Susp 30 Ml Udc) 30 ml PO Q12H PRN PRN Reason: Constipation Stop: 08/09/21 08:37 Methenamine Hippurate (Methenamine Hippurate 1 Gm Tab) 1 gm PO QAM [facility] Stop: 08/09/21 08:59 Last Admin: 07/12/21 07:47 Dose: 1 gm Documented by: Metoprolol Succinate (Metoprolol Succ 50mg Ext Rel Tab) 200 mg PO DAILY [facility] Stop: 08/09/21 08:59 Last Admin: 07/12/21 07:47 Dose: 200 mg Documented by: Mirabegron (Mirabegron Er 25 Mg Tab) 25 mg PO DAILY [facility] Stop: 08/09/21 08:59 Last Admin: 07/12/21 07:48 Dose: 25 mg Documented by: Miscellaneous (Livalo~Order Awaiting Action) 1 ea N/A QS [facility] Stop: 08/09/21 07:59 Last Admin: 07/12/21 07:39 Dose: Not Given Documented by: Multivitamins/Minerals (Cerovite Adv Formula Tab) 1 tab PO DAILY [facility] Stop: 08/09/21 08:59 Last Admin: 07/12/21 07:48 Dose: 1 tab Documented by: Nitroglycerin (Nitroglycerin Sl 0.4 Mg/Tab Tab) 0.4 mg SL UD PRN PRN Reason: Chest Pain Stop: 08/09/21 05:16 Ondansetron HCl (Ondansetron 4 Mg Od Tab) 4 mg PO Q8H PRN PRN Reason: nausea and vomiting Stop: 08/09/21 05:16 Last Admin: 07/12/21 07:46 Dose: 4 mg Documented by: Pantoprazole Sodium (Pantoprazole 40 Mg Tab) 40 mg PO QAM [facility] Stop: 08/09/21 08:59 Last Admin: 07/12/21 07:48 Dose: 40 mg Documented by: Polyethylene Glycol (Polyethylene (Miralax) 17 Gm Pack) 17 gm PO TID PRN PRN Reason: constipation Stop: 08/09/21 05:16 Pregabalin (Pregabalin 100 Mg Cap) 100 mg PO TID PRN PRN Reason: neuropathy Stop: 08/09/21 05:16 Last Admin: 07/12/21 01:52 Dose: 100 mg Documented by: Rivaroxaban (Rivaroxaban 15 Mg Tab) 15 mg PO QDD [facility] Stop: 08/09/21 16:29 Last Admin: 07/11/21 15:21 Dose: 15 mg Documented by: Sacubitril/Valsartan (Valsartan/Sacubitril 51/49 Mg Tab) 1 tab PO BID [facility] Stop: 08/10/21 11:14 Last Admin: 07/12/21 07:48 Dose: 1 tab Documented by: Senna/Docusate Sodium (Docusate Sodium/Senna 50/8.6mg Tab) 1 tab PO BID PRN PRN Reason: constipation Stop: 08/09/21 05:16 Last Admin: 07/12/21 07:46 Dose: 1 tab Documented by: Vitamin D (Cholecalciferol 1,000 Units 25 Mcg Tab) 1,000 units PO QAM [facility] Stop: 08/09/21 08:59 Last Admin: 07/12/21 07:47 Dose: 1,000 units Documented by: PG Care Time/CCT Total # of Minutes Spent Total Time Spent with Patient: Total time spent is greater than 50% in coordination of care (as documented) at patient's floor/unit and/or counseling patient:25 Coding Level of Care Code 85218 Subseq Hosp Care Lvl 3 Diagnoses Substernal chest pain R07.2 Elevated troponin I level R77.8 Cardiomyopathy I42.9 Valvular heart disease I38 Atrial fibrillation, permanent I48.21 Time Spent (min) 39
--- NOTE | 2021-07-12 10:32 | Electrocardiogram Report ---
Test Reason : Blood Pressure : / mmHG Vent. Rate : 066 BPM Atrial Rate : 357 BPM P-R Int : 000 ms QRS Dur : 088 ms QT Int : 438 ms P-R-T Axes : 000 -01 270 degrees QTc Int : 459 ms Atrial fibrillation Diffuse Nonspecific T wave abnormality Abnormal ECG When compared with ECG of 11-JUL-2021 07:37, No significant change was found Confirmed by Luiz Seymour ([id number]) on 07/12/2021 10:31:23 AM Referred By: REFERRED SELF Confirmed By:Luiz Seymour
--- NOTE | 2021-07-12 12:38 | Discharge Summary ---
Date of Service July 12, 2021 Admission HPI Per Admitting Provider 86yo female with a history of AF with RVR (on xarelto), aortic regurgitation, HTN, PAD, osteoporosis, and arthritis presents with chest pressure and shortness of breath. Symptoms began last night at dinnertime. Patient describes sudden- onset chest pain and pressure which began while patient was eating dinner. The chest pain was in the center of her chest and did not radiate. Patient also endorses mild SOB. Patient endorses nausea at that time although it has since resolved. Patient came to the ED after her chest pain and chest pressure persisted. Patient's chest pain/chest pressure has improved since arriving to the ED although it has not completely resolved. Patient has no history of ME and has never had similar symptoms before. Patient denies fever, chills, headache, abdominal pain, vomiting, and diarrhea. Admission Exam Per Admitting Provider Constitutional: well-appearing, no acute distress HEENT: NCAT, no conjunctival injection, MMM CV: irregularly irregular rhythm, heart sounds distant, no murmur appreciated, 1+ pitting edema of BL LE Resp: CTABL, no wheezes/rales/rhonchi appreciated, no increased work of breathing GI: soft, nondistended, nontender, BS normoactive Neuro: alert, oriented, no focal neurologic deficit appreciated Psych: cooperative, pleasant, appropriate rate/volume/quantity of speech Principal Diagnosis Acute on chronic congestive heart failure Discharge Exam GENERAL: No acute distress, lying semi-recumbent in her bed.. HEENT:NCAT, EOMI, moist mucous membranes NECK: No JVD, carotid upstrokes are + 2 bilaterally, no bruits LUNGS: Largely clear lung sounds, reduced crackles in bilateral bases, no wheezes CV: Irregularly irregular rhythm, no murmurs, S1, S2 appreciated ABDOMEN: Soft, nontender, nondistended EXTREMITIES: No clubbing or cyanosis b/l, trace edema of LLE, trace edema of RLE NEURO: no gross focal motor or sensory deficits Discharge Data Allergies Allergy/AdvReac Type Severity Reaction Status Date / Time atorvastatin AdvReac Intermediate liver Verified 07/10/21 01:19 enzymes elevate lisinopril AdvReac Unknown Verified 07/10/21 01:19 Consultations 07/10/21 03:31 ED Decision to Admit Stat 07/10/21 16:35 Consult Cardiology Routine Hospital Course (1) Chest pain: 86yo female with a history of AF with RVR (on xarelto), aortic regurgitation, HTN, HLD, GERD, osteoporosis, and arthritis presents with chest pressure and shortness of breath. Congestive heart failure -Echocardiogram- declining EF 30-35% from 2019 EF 55-60% and increased severe mitral regurgitation, global hypokinesis -Continued home metoprolol, initiated Entresto. Entresto to be continued on discharge and uptitrated per cardiology -Cardiology consulted- recommended digoxin for rate control + positive inotropic effect, replaced home diltiazem due to negative inotropic effect in setting of reduced EF -Pt HRs appropriately rate-controlled on digoxin, to be discharged on digoxin 0.25 mg daily. -Cardiology f/u in 1-2 weeks, repeat echocardiogram in 3 months once pt at [facility] tolerated Entresto dose -Digoxin level pending at time of discharge Atrial fibrillation, persistent - Currently rate-controlled with metoprolol 200mg daily, home medication also includes diltiazem - Continued home Xarelto - Discharged while in rate-controlled atrial fibrillation Chest pain - EKG on admission showed rate-controlled atrial fibrillation without ischemic change - Initial troponin negative; repeat troponin was positive at 0.07 with the following reading 0.06 - Cardiology consulted- likely angina pectoris with underlying CAD, recommended beginning ASA daily. Avoid catheterization and continue conservative treatment given patient's memory dysfunction. ASA initiated. (2) Aortic regurgitation: (3) Atrial fibrillation with RVR: (4) Chronic kidney disease: (5) Dyslipidemia: (6) Gastroesophageal reflux disease: (7) Hypertension: (8) Osteoporosis: (9) PAD (peripheral artery disease): Total Time Total Time Spent Total Time Spent (In Minutes): <30 Discharge Plan Discharge Items Patient Disposition: Home - Home Health Services Reason For Visit: chest pain Discharge Diagnosis: Heart failure exacerbation Activity: Per Instructions section Non-emergency contact: Primary Care Provider and Service Desk Associate Call non-emergency contact if: you have any medication questions and your symptoms worsen Follow-up/Referrals: Gabriel Sánchez MD [Physician] - (Please schedule outpatient follow up visit with Dr. Sánchez) Esa Muller DO [Primary Care Provider] - 07/19/21 11:30 am Diet: Low Sodium (2gm) Addtl Attending Provider Instructions: You were admitted for CHF (congestive heart failure) exacerbation. You were treated with diuretics to help remove extra fluid from your body. You were also treated with medications to control your heart rate while it remained in atrial fibrillation given the reduced ejection fraction of your heart. Follow-up appointments: Make a follow-up appointment with your PCP and camp guard within the next week. It is very important that you follow up with them shortly after discharge from the hospital. Keep all your follow-up appointments as already scheduled. If you cannot make an appointment, notify your provider. Medications: Your medication list has been reviewed and reconciled upon discharge to ensure accuracy and continuity of care. An updated list of all your medications is included with your hospital discharge paperwork. Please review this list closely, and make note of any changes. We sent a new medication called digoxin to the pharmacy. Please take digoxin 0.25 mg daily going forward at the same time each day. Do not take diltiazem anymore, as digoxin has replaced it as your atrial fibrillation medication. Also, please take a baby aspirin daily (81 mg). This will help with your heart health. Take your medications as instructed; do not skip a dose of your medicines. Make sure all of your doctors know every medicine you are taking (including hjlu-qrm-xjtoeji medicines, vitamins, and supplements). Call your primary care provider before taking any new medicines (including hdbt-umx-xoerkvd medicines, vitamins, and supplements), because some of these may interact with your current medications, or may make your symptoms worse. Tell your primary care provider if you cannot afford your medications. Activity: You can do normal everyday activities as your body allows. Take rest breaks if you feel tired. Do not over-exert yourself. Stop activity if you have pain, shortness of breath or feel dizzy. Weight: It is important for you to monitor your daily weights. Weigh yourself every morning using the same scale. Wear the same amount of clothing each time, without anything in your pockets. Keep a log of your daily weights, and bring this log with you every time you see your primary care physician, or any other doctor. Call your primary care physician if you gain more than 2-3 pounds in 1-2 days. Diet: Follow a low sodium (salt) diet. We recommend limiting your sodium intake to under 2000mg per day. Choose foods and drinks with low or no salt. Remove the salt shaker from your table at home. We also recommend limiting your daily fluid intake to 1800mL (60oz) in order to help your body balance fluids. Do not drink excessive beer, alcohol, or wine. If you are struggling with these restrictions, or need additional help incorporating healthy habits into your daily life, please contact your primary care provider. CONTACT YOUR PRIMARY CARE PROVIDER if you experience any of the following: Shortness of breath or have more difficulty breathing Swelling of your feet, ankles, hands or abdomen Feeling tired with normal activity or experiencing dizziness or fainting Difficulty following your treatment plan, or difficulty taking medications CALL 911 OR GO TO THE EMERGENCY DEPARTMENT if you experience any of the following: Severe abdominal pain Severe nausea/vomiting Severe chest pain, or chest pain that radiates (moves) to your jaw or arm Sudden, severe shortness of breath or difficulty breathing Thank you for allowing us to participate in your care. Pending Studies at Discharge: Yes Studies:: Digoxin level Stand-Alone Forms: My [facility] [employer] Smoking Cessation Medications and DC Order Prescriptions: New digoxin 250 mcg (0.25 mg) tablet 250 mcg PO DAILY Qty: 30 RF: 1 aspirin 81 mg capsule 81 mg PO DAILY Qty: 30 RF: 0 Entresto 49-51 mg tablet 1 tab PO BID Qty: 60 RF: 0 Continued dexlansoprazole 60 mg capsule,biphase delayed releas 60 mg PO QAM Qty: 90 RF: 3 jzswluebns-qlbiymeidbvft-stvd 50-325-40 mg tablet 1 tab PO BID PRN (Reason: pain) Qty: 30 RF: 1 Hold Instructions: PLan on pt reducing her frequency, monitor with refill Xarelto 15 mg tablet 15 mg PO QDD Qty: 30 RF: 5 furosemide [Lasix] 20 mg tablet 20 mg PO DAILY PRN (Reason: edema, weight gain, shortness of breath) Qty: 90 RF: 3 metoprolol succinate 200 mg tablet extended release 24 hr 200 mg PO DAILY Qty: 90 RF: 3 donepezil 5 mg tablet 5 mg PO DAILY Qty: 30 RF: 2 multivitamin [Multiple Vitamins] tablet 1 tab PO DAILY RF: 0 cholecalciferol (vitamin D3) 1,000 unit capsule 1,000 units PO QAM RF: 0 methenamine hippurate 1 gram tablet 1 g PO QAM RF: 0 mirabegron 25 mg tablet extended release 24 hr 25 mg PO DAILY RF: 0 pregabalin 100 mg capsule 100 mg PO TID PRN (Reason: neuropathy) Qty: 90 RF: 1 polyethylene glycol 3350 [Miralax] 17 gram Powder In Packet 17 g PO TID PRN (Reason: constipation) Qty: 30 RF: 0 Livalo 4 mg tablet 4 mg PO DAILYBB RF: 0 sennosides-docusate sodium [Senna Plus] 8.6-50 mg tablet 1 tab-cap PO BID PRN (Reason: constipation) Qty: 30 RF: 0 ondansetron 4 mg tablet,disintegrating 4 mg PO Q8H PRN (Reason: nausea and vomiting) Qty: 30 RF: 0 Discontinued diltiazem HCl 30 mg tablet 30 mg PO BID Qty: 120 RF: 2 Discharge Orders: Discharge Order (Routine); Ordered 07/12/21 Ordered By: Scottie Marie Admission Data Admit Date/Time: 07/12/21 12:56 Attending Provider: Alex Salinas Admit Provider: Foster Roberts Primary Care Provider: Esa Muller Other Providers: Elis Casey ; Gabriel Sánchez ; Jaz Boateng ; Anna Joseph [facility] Other Interventions: Discharge Summary Assessment (RN) Last Done: 07/12/21 14:28 Supervising Physician Co-Signing Physician Notes I personally examined the patient and verified all painting points of history and exam, discussed case, and agree with decision making with Dr Marie feels up to going home. later at bedside and he feels comfortabl with taking her home vitals noted nad heent nc at mmm breathing unlabored no accessory muscles good effort skin on rashes no pallor or icterus. walks slow/stooped but steady with cane, able to stand out of bed, walk ~15ft, turn, return to room, sit back down with steady gait and no assistance worsening cardiomyopathy - mixed CHF - systolic w low EF, diastolic w valvular disease - but now on room air. trop - demand ischemia, possibly mild angina - for med management. stopped dilt since low EF. started entresto for same // afterload reduction. digoxin per cardiology. check level as outpt ~1-2wks (current level pending) already anticoagulated on xarelto. otherwise as above Resident Activity Tracking Resident Involvement: Resident Care Provided Care Provided: Adult Hospital Medicine
--- NOTE | 2021-07-12 17:42 | Billing Data ---
Date of Service July 12, 2021 Coding Level of Care Code 62610 Subseq Hosp Care Lvl 3
--- NOTE | 2021-07-12 17:42 | Billing Data ---
Date of Service July 12, 2021 Coding Level of Care Code D/C DAY MANAGEMENT <30 MINS Comment disregard [id number] - entered in error
== END 2021-07-12 15:27 | disposition home health service (06) ==
LOC: ED 23:38 → EDINP 23:38 → SUATTDRO 07-10 05:17 → 2W 07-10 14:56